=== PATIENT | male | born 1980 | race Caucasian/White ===

== ENCOUNTER 2017-07-04 01:11 | Inpatient (IN) | payer OTHER ==
[2017-07-04] MEDS ORDERED: PROPOFOL 100 ML (01:37)
[2017-07-04] MEDS: HEPARIN 1000 UNITS/ML 10 ML INJ IV ×2 (01:53→13:29)
[2017-07-04] MEDS ORDERED: HEPARIN 25000 UNITS/250 ML 250 ML IV (01:53)
[2017-07-04 01:55] LABS: ADD MAN DIFF? NO
[2017-07-04 01:56] LABS: ABNORMAL IP MESSAGE 1; BASOPHIL # 0.1 10^3/ul (0.0-0.1); BASOPHILS % 0.7 % (0.0-2.0); EOSINOPHILS # 0.4 10^3/ul (0.0-0.5); EOSINOPHILS % 4.8 % (0.0-7.0); HEMATOCRIT 39.6 % (42.0-52.0); LYMPHOCYTES # 2.7 10^3/ul (0.8-2.9); LYMPHOCYTES % 31.7 % (15.0-51.0); MEAN CORPUSCULAR HEMOGLOBIN 32.4 pg (29.0-33.0); MEAN CORPUSCULAR HGB CONC 27.8 g/dl (32.0-37.0); MEAN CORPUSCULAR VOLUME 116.5 fl (82.0-101.0); MEAN PLATELET VOLUME 10.5 fl (7.4-10.4); MONOCYTE # 1.1 10^3/ul (0.3-0.9); MONOCYTES % 12.8 % (0.0-11.0); NEUTROPHIL # 4.3 10^3/ul (1.6-7.5); NEUTROPHILS % 49.8 % (39.0-77.0); PLATELET COUNT 172 10^3/UL (140-415); POSITIVE DIFF @See below; RED CELL DISTRIBUTION WIDTH 14.4 % (11.5-14.5)
[2017-07-04 01:56] LABS: WHITE BLOOD COUNT 8.6 10^3/ul (4.8-10.8)
[2017-07-04] MEDS: PROPOFOL 100 ML IV ×4 (02:00→18:57)
[2017-07-04 02:15] LABS: AADO2 Arterial 328.4 mmHg (7.0-24.0); Arterial Base Excess -10.9 mmol/L (-3.0-3); Arterial HCO3 20.4 mmol/L (22.0-26.0); Arterial pCO2 70.9 mmhg (35-45); INR 0.96; MODE VENT - AC; PROTIME 12.8 Sec (12.2-14.2); Site Right Brachial
[2017-07-04 02:28] LABS: ALANINE AMINOTRANSFERASE 15 IU/L (13-69); ALBUMIN 4.2 g/dl (3.3-4.9); ALBUMIN/GLOBULIN RATIO 1.02; ALKALINE PHOSPHATASE 108 IU/L (42-121); ANION GAP 28 (8-16); ASPARTATE AMINO TRANSFERASE 24 IU/L (15-46); BILIRUBIN,INDIRECT 0.1 mg/dl (0-1.1); BILIRUBIN,TOTAL 0.1 mg/dl (0.2-1.3); BLOOD UREA NITROGEN 42 mg/dl (7-20); CALCIUM 8.9 mg/dl (8.4-10.2); CARBON DIOXIDE 22 mmol/L (21-31); CHLORIDE 107 mmol/L (97-110); CREATININE 9.32 mg/dl (0.61-1.24); GLUCOSE 100 mg/dl (70-220); LIPASE 526 U/L (23-300); SODIUM 152 mmol/L (135-144); TOTAL PROTEIN 8.3 g/dl (6.1-8.1)
[2017-07-04 02:50] LABS: TROPONIN-I 0.118 ng/ml (0.00-0.12)
[2017-07-04 02:53] LABS: ADD UMIC YES; UR ASCORBIC ACID NEGATIVE (NEGATIVE); UR BACTERIA FEW /HPF (NONE SEEN); UR BILIRUBIN (Dip) NEGATIVE (NEGATIVE); UR BLOOD (Dip) NEGATIVE (NEGATIVE); UR CLARITY SLIGHTLY CLOUDY (CLEAR); UR COLOR YELLOW (YELLOW); UR GLUCOSE (Dip) 1+ mg/dL (NEGATIVE); UR KETONES (Dip) NEGATIVE (NEGATIVE); UR LEUKOCYTE ESTERASE (Dip) 1+ Leu/ul (NEGATIVE); UR NITRITE (Dip) NEGATIVE (NEGATIVE); UR RBC 4 /HPF (0-5); UR SPECIFIC GRAVITY (Dip) 1.008 (1.003-1.030); UR SQUAMOUS EPITHELIAL CELL FEW /HPF (FEW); UR TOTAL PROTEIN (Dip) 2+ mg/dl (NEGATIVE); UR UROBILINOGEN (Dip) NEGATIVE (NEGATIVE); UR WBC 33 /HPF (0-5)
[2017-07-04] MEDS: SODIUM CHLORIDE 0.9% 500 ML BAG IV* (03:23)
[2017-07-04] MEDS: ASPIRIN 300 MG SUPP PR (03:25)
[2017-07-04] MEDS: FUROSEMIDE 20 MG INJ IV (03:52)
[2017-07-04] MEDS: FENTAnyl 50 MCG/ML VIAL IV (04:06)
[2017-07-04] MEDS: VECURONIUM 10 MG VIAL IV (04:09)
[2017-07-04] MEDS: VECURONIUM 100 MG in DEXTROSE 5% 100 ML IV ×3 (04:11→14:51)
[2017-07-04] MEDS: FENTAnyl (DRIP) 1000 mcg/100mL 100 ML IV ×2 (04:11→10:02)
[2017-07-04] MEDS: PANTOPRAZOLE 40 MG INJ IV (06:00)
[2017-07-04] MEDS ORDERED: INSULIN HUMAN REGULAR 100 UNIT in SOD CHLORIDE 0.9% 99 ML IV (06:00)
[2017-07-04] MEDS ORDERED: DEXTROSE 50% 50 ML SYRINGE IV ×2 (06:00)
[2017-07-04] MEDS ORDERED: NORepinephrine 8MG/250 ML (PMX 250 ML IV (06:00)
[2017-07-04] MEDS ORDERED: PROPOFOL 100 ML IV (06:00)
[2017-07-04] MEDS: HEPARIN 25000 UNITS/D5W 250 ML IV (06:00)
[2017-07-04] MEDS ORDERED: IPRATROPIUM (HFA) 12.9 GM INHALER INH (06:00)
[2017-07-04] MEDS ORDERED: ALBUTEROL HFA 8 GM INHALER INH (06:00)
[2017-07-04] MEDS ORDERED: ACETAMINOPHEN 650 MG SUPP PR (06:00)
[2017-07-04 06:13] LABS: LACTIC ACID 0.6 mmol/L (0.5-2.0)
[2017-07-04 06:14] LABS: MAGNESIUM 2.1 mg/dl (1.7-2.5)
[2017-07-04 06:14] LABS: PHOSPHORUS 8.1 mg/dl (2.5-4.9)
[2017-07-04 06:51] LABS: AMPHETAMINE/METHAMPHETAMINE Negative (NEGATIVE); BARBITURATES Negative (NEGATIVE); BENZODIAZEPINES Negative (NEGATIVE); CANNABINOIDS Negative (NEGATIVE); COCAINE Negative (NEGATIVE); OPIATES Negative (NEGATIVE)
[2017-07-04] MEDS ORDERED: VECURONIUM 10 MG VIAL (07:00)
[2017-07-04] MEDS: ACCU-CHEK XX ×9 (07:00→21:00)
[2017-07-04] MEDS ORDERED: HEPARIN 1000 UNITS/ML 10 ML INJ IV (07:00)
[2017-07-04 07:09] LABS: TROPONIN-I 0.618 ng/ml (0.00-0.12)
[2017-07-04 07:22] LABS: ETHANOL < 10.0 mg/dl
[2017-07-04 07:41] LABS: CREATINE KINASE 227 IU/L (23-200)
[2017-07-04 07:51] LABS: CK INDEX 1.9
[2017-07-04 07:52] LABS: CK-MB 4.41 ng/ml (0.0-2.4); TROPONIN-I 0.836 ng/ml (0.00-0.12)
[2017-07-04 08:35] LABS: SALICYLATE < 1.0 mg/dl (5.0-30.0)
[2017-07-04] MEDS: OCULAR LUBRICANT 3.5 GM OPH OINT BOTH EYES ×3 (09:00→17:36)
[2017-07-04] MEDS ORDERED: HEPARIN 5,000 UNIT/0.5 ML VIAL SC (09:00)
[2017-07-04] MEDS: ARTIFICIAL TEARS 15 ML OPH BOTH EYES ×3 (09:00→17:37)
[2017-07-04] MEDS: NITROGLYCERIN 50 MG/D5W (PMX) 250 ML IV ×3 (09:43→18:19)
[2017-07-04 10:20] LABS: AADO2 Arterial 604.4 mmHg (7.0-24.0); Arterial Base Excess -2.7 mmol/L (-3.0-3); Arterial Blood Gas Oxygen Sat 94.9 mmHG (95.0-98.0); Arterial COHb 1.2 % (0.0-3.0); Arterial Fraction of Oxyhgb 93.5 % (93.0-99.0); Arterial HCO3 25.8 mmol/L (22.0-26.0); Arterial MetHb 0.3 % (0.0-1.5); Arterial Total Hemglobin 15.7 g/dl (12.0-18.0); Arterial pCO2 50.3 mmhg (35-45); MODE VENT - AC; Site Right Brachial; Temperature 32.8 C
[2017-07-04 10:39] LABS: ADD MAN DIFF? NO
[2017-07-04 10:40] LABS: WHITE BLOOD COUNT 11.2 10^3/ul (4.8-10.8)
[2017-07-04 10:40] LABS: ABNORMAL IP MESSAGE 1; BASOPHILS % 0.1 % (0.0-2.0); EOSINOPHILS % 0.1 % (0.0-7.0); HEMATOCRIT 31.3 % (42.0-52.0); HEMOGLOBIN 9.9 g/dl (14.0-18.0); LYMPHOCYTES # 0.4 10^3/ul (0.8-2.9); LYMPHOCYTES % 3.2 % (15.0-51.0); MEAN CORPUSCULAR HEMOGLOBIN 31.5 pg (29.0-33.0); MEAN CORPUSCULAR HGB CONC 31.6 g/dl (32.0-37.0); MEAN CORPUSCULAR VOLUME 99.7 fl (82.0-101.0); MEAN PLATELET VOLUME 10.2 fl (7.4-10.4); MONOCYTE # 0.5 10^3/ul (0.3-0.9); MONOCYTES % 4.3 % (0.0-11.0); NEUTROPHIL # 10.3 10^3/ul (1.6-7.5); NEUTROPHILS % 91.9 % (39.0-77.0); PLATELET COUNT 166 10^3/UL (140-415); POSITIVE DIFF @See below; RED BLOOD COUNT 3.14 10^6/ul (4.70-6.10); RED CELL DISTRIBUTION WIDTH 14.4 % (11.5-14.5)
[2017-07-04 10:47] LABS: INR 1.03; PROTIME 13.5 Sec (12.2-14.2); PT RATIO 1.1
[2017-07-04 10:48] LABS: PARTIAL THROMBOPLASTIN TIME 39.5 Sec (25.0-35.0)
[2017-07-04 10:51] LABS: ALANINE AMINOTRANSFERASE 45 IU/L (13-69); ALBUMIN/GLOBULIN RATIO 1.29; ALKALINE PHOSPHATASE 122 IU/L (42-121); AMYLASE 177 U/L (11-123); ANION GAP 19 (8-16); ASPARTATE AMINO TRANSFERASE 59 IU/L (15-46); BILIRUBIN,INDIRECT 0.1 mg/dl (0-1.1); BILIRUBIN,TOTAL 0.1 mg/dl (0.2-1.3); BLOOD UREA NITROGEN 56 mg/dl (7-20); CALCIUM 7.6 mg/dl (8.4-10.2); CARBON DIOXIDE 27 mmol/L (21-31); CHLORIDE 104 mmol/L (97-110); CREATININE 8.71 mg/dl (0.61-1.24); GLUCOSE 129 mg/dl (70-220); LIPASE 280 U/L (23-300); PHOSPHORUS 7.8 mg/dl (2.5-4.9); POTASSIUM 5.3 mmol/L (3.5-5.1); SODIUM 145 mmol/L (135-144); TOTAL PROTEIN 7.1 g/dl (6.1-8.1)
[2017-07-04 11:00] LABS: LACTIC ACID 0.8 mmol/L (0.5-2.0)
[2017-07-04 11:03] LABS: TROPONIN-I 0.968 ng/ml (0.00-0.12)
[2017-07-04] MEDS: CEFEPIME 1GM/50 ML (PMX) 50 ML IVPB (11:40)
[2017-07-04 13:18] LABS: INR 0.99; PROTIME 13.1 Sec (12.2-14.2)
[2017-07-04 13:19] LABS: PARTIAL THROMBOPLASTIN TIME 32.7 Sec (25.0-35.0)
[2017-07-04 14:56] LABS: ADD MAN DIFF? NO
[2017-07-04 14:58] LABS: WHITE BLOOD COUNT 10.6 10^3/ul (4.8-10.8)
[2017-07-04 14:58] LABS: ABNORMAL IP MESSAGE 1; BASOPHILS % 0.1 % (0.0-2.0); HEMATOCRIT 32.8 % (42.0-52.0); HEMOGLOBIN 9.9 g/dl (14.0-18.0); LYMPHOCYTES # 0.5 10^3/ul (0.8-2.9); LYMPHOCYTES % 4.7 % (15.0-51.0); MEAN CORPUSCULAR HEMOGLOBIN 29.5 pg (29.0-33.0); MEAN CORPUSCULAR HGB CONC 30.2 g/dl (32.0-37.0); MEAN CORPUSCULAR VOLUME 97.6 fl (82.0-101.0); MEAN PLATELET VOLUME 10.5 fl (7.4-10.4); MONOCYTE # 0.5 10^3/ul (0.3-0.9); MONOCYTES % 4.6 % (0.0-11.0); NEUTROPHIL # 9.6 10^3/ul (1.6-7.5); NEUTROPHILS % 90.2 % (39.0-77.0); PLATELET COUNT 177 10^3/UL (140-415); POSITIVE DIFF @See below; RED BLOOD COUNT 3.36 10^6/ul (4.70-6.10); RED CELL DISTRIBUTION WIDTH 14.5 % (11.5-14.5)
[2017-07-04 15:13] LABS: INR 1.03; PROTIME 13.5 Sec (12.2-14.2); PT RATIO 1.1
[2017-07-04 15:14] LABS: LACTIC ACID 0.9 mmol/L (0.5-2.0)
[2017-07-04 15:17] LABS: ALANINE AMINOTRANSFERASE 45 IU/L (13-69); ALBUMIN 3.9 g/dl (3.3-4.9); ALBUMIN/GLOBULIN RATIO 1.18; ALKALINE PHOSPHATASE 125 IU/L (42-121); ANION GAP 20 (8-16); ASPARTATE AMINO TRANSFERASE 44 IU/L (15-46); BILIRUBIN,INDIRECT 0.2 mg/dl (0-1.1); BILIRUBIN,TOTAL 0.2 mg/dl (0.2-1.3); BLOOD UREA NITROGEN 58 mg/dl (7-20); CALCIUM 7.7 mg/dl (8.4-10.2); CARBON DIOXIDE 24 mmol/L (21-31); CHLORIDE 105 mmol/L (97-110); CREATININE 8.93 mg/dl (0.61-1.24); GLUCOSE 110 mg/dl (70-220); LIPASE 309 U/L (23-300); PHOSPHORUS 7.4 mg/dl (2.5-4.9); POTASSIUM 4.9 mmol/L (3.5-5.1); SODIUM 144 mmol/L (135-144); TOTAL PROTEIN 7.2 g/dl (6.1-8.1)
[2017-07-04 15:24] LABS: PARTIAL THROMBOPLASTIN TIME 93.7 Sec (25.0-35.0)
[2017-07-04 15:26] LABS: CK-MB 5.33 ng/ml (0.0-2.4)
[2017-07-04 15:31] LABS: TROPONIN-I 0.836 ng/ml (0.00-0.12)
[2017-07-04 15:44] LABS: AMYLASE 189 U/L (11-123)
[2017-07-04 16:53] LABS: AADO2 Arterial 552.1 mmHg (7.0-24.0); Allen Test ACCEPTAB; Arterial Base Excess -2.6 mmol/L (-3.0-3); Arterial Blood Gas Oxygen Sat 98.9 mmHG (95.0-98.0); Arterial COHb 0.3 % (0.0-3.0); Arterial Fraction of Oxyhgb 98.3 % (93.0-99.0); Arterial HCO3 21.5 mmol/L (22.0-26.0); Arterial MetHb 0.3 % (0.0-1.5); Arterial Total Hemglobin 11.1 g/dl (12.0-18.0); MODE VENT - AC; Site Right Radial; Temperature 32.3 C
[2017-07-04] MEDS ORDERED: FENTANYL IV (20:00)
[2017-07-04] MEDS ORDERED: DEXTROSE 5% IV (20:00)
[2017-07-04] MEDS ORDERED: hydrALAzine 20 MG INJ (20:15)
[2017-07-04 21:08] LABS: ADD MAN DIFF? NO
[2017-07-04 21:09] LABS: ABNORMAL IP MESSAGE 1; BASOPHILS % 0.1 % (0.0-2.0); HEMATOCRIT 31.7 % (42.0-52.0); HEMOGLOBIN 9.9 g/dl (14.0-18.0); LYMPHOCYTES # 0.4 10^3/ul (0.8-2.9); LYMPHOCYTES % 4.2 % (15.0-51.0); MEAN CORPUSCULAR HEMOGLOBIN 29.9 pg (29.0-33.0); MEAN CORPUSCULAR HGB CONC 31.2 g/dl (32.0-37.0); MEAN CORPUSCULAR VOLUME 95.8 fl (82.0-101.0); MEAN PLATELET VOLUME 10.5 fl (7.4-10.4); MONOCYTE # 0.6 10^3/ul (0.3-0.9); MONOCYTES % 6.3 % (0.0-11.0); NEUTROPHIL # 9.1 10^3/ul (1.6-7.5); NEUTROPHILS % 89.1 % (39.0-77.0); PLATELET COUNT 168 10^3/UL (140-415); POSITIVE DIFF @See below; RED BLOOD COUNT 3.31 10^6/ul (4.70-6.10); RED CELL DISTRIBUTION WIDTH 14.4 % (11.5-14.5)
[2017-07-04 21:09] LABS: WHITE BLOOD COUNT 10.2 10^3/ul (4.8-10.8)
[2017-07-04] MEDS: hydrALAzine 20 MG INJ IV (21:10)
[2017-07-04 21:39] LABS: LACTIC ACID 0.9 mmol/L (0.5-2.0)
[2017-07-04 21:42] LABS: INR 0.98
[2017-07-04 21:43] LABS: ALANINE AMINOTRANSFERASE 47 IU/L (13-69); ALBUMIN 3.9 g/dl (3.3-4.9); ALKALINE PHOSPHATASE 113 IU/L (42-121); AMYLASE 176 U/L (11-123); ANION GAP 20 (8-16); ASPARTATE AMINO TRANSFERASE 37 IU/L (15-46); BILIRUBIN,INDIRECT 0.2 mg/dl (0-1.1); BILIRUBIN,TOTAL 0.2 mg/dl (0.2-1.3); BLOOD UREA NITROGEN 61 mg/dl (7-20); CALCIUM 7.8 mg/dl (8.4-10.2); CARBON DIOXIDE 22 mmol/L (21-31); CHLORIDE 106 mmol/L (97-110); CREATININE 9.21 mg/dl (0.61-1.24); GLUCOSE 103 mg/dl (70-220); LIPASE 207 U/L (23-300); PARTIAL THROMBOPLASTIN TIME 33.1 Sec (25.0-35.0); PHOSPHORUS 7.7 mg/dl (2.5-4.9); POTASSIUM 4.2 mmol/L (3.5-5.1); SODIUM 144 mmol/L (135-144); TOTAL PROTEIN 6.9 g/dl (6.1-8.1)
[2017-07-04 21:55] LABS: TROPONIN-I 0.652 ng/ml (0.00-0.12)
[2017-07-04 22:42] LABS: AADO2 Arterial 331.2 mmHg (7.0-24.0); Allen Test ACCEPTAB; Arterial Base Excess -1.7 mmol/L (-3.0-3); Arterial Blood Gas Oxygen Sat 99.2 mmHG (95.0-98.0); Arterial COHb 0.3 % (0.0-3.0); Arterial Fraction of Oxyhgb 98.6 % (93.0-99.0); Arterial HCO3 22.7 mmol/L (22.0-26.0); Arterial MetHb 0.3 % (0.0-1.5); Arterial Total Hemglobin 11.3 g/dl (12.0-18.0); Arterial pCO2 30.9 mmhg (35-45); MODE VENT - AC; Site Right Radial; Temperature 32.6 C
[2017-07-04] MEDS: MEPERIDINE 25 MG INJ IV (23:14)
[2017-07-05] MEDS: PROPOFOL 100 ML IV ×5 (00:11→20:47)
[2017-07-05] MEDS: OCULAR LUBRICANT 3.5 GM OPH OINT BOTH EYES ×4 (00:12→18:01)
[2017-07-05] MEDS: ARTIFICIAL TEARS 15 ML OPH BOTH EYES ×4 (00:12→18:01)
[2017-07-05] MEDS: ACCU-CHEK XX ×6 (01:00→20:31)
[2017-07-05] MEDS: FENTAnyl 1,000 MCG in DEXTROSE 5% 80 ML IV ×2 (02:17→22:58)
[2017-07-05 03:22] LABS: ADD MAN DIFF? NO
[2017-07-05 03:24] LABS: WHITE BLOOD COUNT 8.8 10^3/ul (4.8-10.8)
[2017-07-05 03:24] LABS: ABNORMAL IP MESSAGE 1; BASOPHILS % 0.1 % (0.0-2.0); EOSINOPHILS % 0.2 % (0.0-7.0); HEMATOCRIT 29.1 % (42.0-52.0); HEMOGLOBIN 9.2 g/dl (14.0-18.0); LYMPHOCYTES # 0.6 10^3/ul (0.8-2.9); LYMPHOCYTES % 6.3 % (15.0-51.0); MEAN CORPUSCULAR HEMOGLOBIN 30.4 pg (29.0-33.0); MEAN CORPUSCULAR HGB CONC 31.6 g/dl (32.0-37.0); MEAN PLATELET VOLUME 10.5 fl (7.4-10.4); MONOCYTE # 0.6 10^3/ul (0.3-0.9); MONOCYTES % 6.7 % (0.0-11.0); NEUTROPHIL # 7.6 10^3/ul (1.6-7.5); NEUTROPHILS % 86.2 % (39.0-77.0); PLATELET COUNT 167 10^3/UL (140-415); POSITIVE DIFF @See below; RED BLOOD COUNT 3.03 10^6/ul (4.70-6.10); RED CELL DISTRIBUTION WIDTH 14.5 % (11.5-14.5)
[2017-07-05 03:38] LABS: INR 0.98
[2017-07-05 03:39] LABS: PARTIAL THROMBOPLASTIN TIME 32.7 Sec (25.0-35.0)
[2017-07-05 03:45] LABS: LACTIC ACID 1.4 mmol/L (0.5-2.0)
[2017-07-05 03:46] LABS: ALANINE AMINOTRANSFERASE 38 IU/L (13-69); ALBUMIN 3.5 g/dl (3.3-4.9); ALKALINE PHOSPHATASE 92 IU/L (42-121); AMYLASE 155 U/L (11-123); ANION GAP 17 (8-16); ASPARTATE AMINO TRANSFERASE 26 IU/L (15-46); BILIRUBIN,INDIRECT 0.1 mg/dl (0-1.1); BILIRUBIN,TOTAL 0.1 mg/dl (0.2-1.3); BLOOD UREA NITROGEN 62 mg/dl (7-20); CALCIUM 7.6 mg/dl (8.4-10.2); CARBON DIOXIDE 25 mmol/L (21-31); CHLORIDE 106 mmol/L (97-110); CREATININE 9.51 mg/dl (0.61-1.24); GLUCOSE 94 mg/dl (70-220); LIPASE 185 U/L (23-300); MAGNESIUM 1.9 mg/dl (1.7-2.5); POTASSIUM 4.3 mmol/L (3.5-5.1); SODIUM 144 mmol/L (135-144); TOTAL PROTEIN 6.4 g/dl (6.1-8.1)
[2017-07-05 03:46] LABS: PHOSPHORUS 9.4 mg/dl (2.5-4.9)
[2017-07-05] MEDS: MEPERIDINE 25 MG INJ IV (03:46)
[2017-07-05 03:59] LABS: TROPONIN-I 0.501 ng/ml (0.00-0.12)
[2017-07-05 04:56] LABS: AADO2 Arterial 173.2 mmHg (7.0-24.0); Allen Test ACCEPTAB; Arterial Base Excess -2.1 mmol/L (-3.0-3); Arterial Blood Gas Oxygen Sat 96.2 mmHG (95.0-98.0); Arterial COHb 0.3 % (0.0-3.0); Arterial Fraction of Oxyhgb 95.6 % (93.0-99.0); Arterial HCO3 23.8 mmol/L (22.0-26.0); Arterial MetHb 0.3 % (0.0-1.5); Arterial Total Hemglobin 10.4 g/dl (12.0-18.0); Arterial pCO2 38.1 mmhg (35-45); MODE VENT - AC
[2017-07-05] MEDS: PANTOPRAZOLE 40 MG INJ IV (05:48)
[2017-07-05] MEDS: ACETAMINOPHEN 650MG/20.3ML CUP PO ×3 (05:48→18:01)
[2017-07-05] MEDS: ACETAMINOPHEN 650 MG SUPP PR ×3 (05:49→18:00)
[2017-07-05] MEDS: NITROGLYCERIN 50 MG/D5W (PMX) 250 ML IV (06:37)
[2017-07-05 08:14] LABS: AADO2 Arterial 223.5 mmHg (7.0-24.0); Allen Test ACCEPTAB; Arterial Base Excess -2.3 mmol/L (-3.0-3); Arterial Blood Gas Oxygen Sat 96.3 mmHG (95.0-98.0); Arterial COHb 0.2 % (0.0-3.0); Arterial Fraction of Oxyhgb 95.8 % (93.0-99.0); Arterial HCO3 21.1 mmol/L (22.0-26.0); Arterial MetHb 0.3 % (0.0-1.5); Arterial Total Hemglobin 9.3 g/dl (12.0-18.0); Arterial pCO2 26.7 mmhg (35-45); MODE VENT - AC; Site Right Radial; Temperature 33.4 C
[2017-07-05] MEDS: CEFEPIME 1GM/50 ML (PMX) 50 ML IVPB (09:21)
[2017-07-05] MEDS: LORAZEPAM 2 MG INJ IV ×2 (09:21→12:47)
[2017-07-05 09:29] LABS: ADD MAN DIFF? NO
[2017-07-05 09:37] LABS: ABNORMAL IP MESSAGE 1; BASOPHILS % 0.1 % (0.0-2.0); EOSINOPHILS # 0.1 10^3/ul (0.0-0.5); EOSINOPHILS % 1.1 % (0.0-7.0); HEMATOCRIT 26.4 % (42.0-52.0); HEMOGLOBIN 8.6 g/dl (14.0-18.0); LYMPHOCYTES # 0.5 10^3/ul (0.8-2.9); LYMPHOCYTES % 6.3 % (15.0-51.0); MEAN CORPUSCULAR HEMOGLOBIN 31.4 pg (29.0-33.0); MEAN CORPUSCULAR HGB CONC 32.6 g/dl (32.0-37.0); MEAN CORPUSCULAR VOLUME 96.4 fl (82.0-101.0); MEAN PLATELET VOLUME 10.5 fl (7.4-10.4); MONOCYTE # 0.6 10^3/ul (0.3-0.9); NEUTROPHIL # 6.1 10^3/ul (1.6-7.5); NEUTROPHILS % 84.1 % (39.0-77.0); PLATELET COUNT 150 10^3/UL (140-415); POSITIVE DIFF @See below; RED BLOOD COUNT 2.74 10^6/ul (4.70-6.10); RED CELL DISTRIBUTION WIDTH 14.6 % (11.5-14.5)
[2017-07-05 09:37] LABS: WHITE BLOOD COUNT 7.3 10^3/ul (4.8-10.8)
[2017-07-05 09:52] LABS: LACTIC ACID 1.2 mmol/L (0.5-2.0)
[2017-07-05 09:54] LABS: ALANINE AMINOTRANSFERASE 38 IU/L (13-69); ALBUMIN 3.2 g/dl (3.3-4.9); ALBUMIN/GLOBULIN RATIO 1.14; ALKALINE PHOSPHATASE 79 IU/L (42-121); AMYLASE 148 U/L (11-123); ANION GAP 19 (8-16); ASPARTATE AMINO TRANSFERASE 23 IU/L (15-46); BILIRUBIN,INDIRECT 0.1 mg/dl (0-1.1); BILIRUBIN,TOTAL 0.1 mg/dl (0.2-1.3); BLOOD UREA NITROGEN 64 mg/dl (7-20); CALCIUM 7.3 mg/dl (8.4-10.2); CARBON DIOXIDE 22 mmol/L (21-31); CHLORIDE 107 mmol/L (97-110); CREATININE 9.14 mg/dl (0.61-1.24); GLUCOSE 77 mg/dl (70-220); LIPASE 203 U/L (23-300); MAGNESIUM 1.8 mg/dl (1.7-2.5); PHOSPHORUS 8.8 mg/dl (2.5-4.9); SODIUM 144 mmol/L (135-144)
[2017-07-05 10:06] LABS: TROPONIN-I 0.379 ng/ml (0.00-0.12)
[2017-07-05 10:10] LABS: INR 1.14; PROTIME 14.6 Sec (12.2-14.2); PT RATIO 1.1
[2017-07-05 10:12] LABS: PARTIAL THROMBOPLASTIN TIME 35.5 Sec (25.0-35.0)
[2017-07-05] MEDS ORDERED: DIVALPROEX (ER) 500 MG TAB PO (13:00)
[2017-07-05] MEDS: VALPROIC ACID LIQUID CUP 250 MG/5 ML CUP NGT ×2 (13:44→20:30)
[2017-07-05 14:09] LABS: AADO2 Arterial 198.8 mmHg (7.0-24.0); Allen Test ACCEPTAB; Arterial Base Excess -2.3 mmol/L (-3.0-3); Arterial Blood Gas Oxygen Sat 97.6 mmHG (95.0-98.0); Arterial COHb 0.1 % (0.0-3.0); Arterial HCO3 22.6 mmol/L (22.0-26.0); Arterial MetHb 0.5 % (0.0-1.5); Arterial Total Hemglobin 9.3 g/dl (12.0-18.0); MODE VENT - AC; Site Left Radial
[2017-07-05 16:19] LABS: ADD MAN DIFF? NO
[2017-07-05 16:20] LABS: WHITE BLOOD COUNT 6.6 10^3/ul (4.8-10.8)
[2017-07-05 16:20] LABS: ABNORMAL IP MESSAGE 1; BASOPHILS % 0.2 % (0.0-2.0); EOSINOPHILS # 0.2 10^3/ul (0.0-0.5); EOSINOPHILS % 2.7 % (0.0-7.0); HEMATOCRIT 25.1 % (42.0-52.0); HEMOGLOBIN 8.2 g/dl (14.0-18.0); LYMPHOCYTES # 0.5 10^3/ul (0.8-2.9); LYMPHOCYTES % 7.3 % (15.0-51.0); MEAN CORPUSCULAR HEMOGLOBIN 31.9 pg (29.0-33.0); MEAN CORPUSCULAR HGB CONC 32.7 g/dl (32.0-37.0); MEAN CORPUSCULAR VOLUME 97.7 fl (82.0-101.0); MEAN PLATELET VOLUME 10.6 fl (7.4-10.4); MONOCYTE # 0.5 10^3/ul (0.3-0.9); MONOCYTES % 7.8 % (0.0-11.0); NEUTROPHIL # 5.4 10^3/ul (1.6-7.5); NEUTROPHILS % 81.7 % (39.0-77.0); PLATELET COUNT 152 10^3/UL (140-415); POSITIVE DIFF @See below; RED BLOOD COUNT 2.57 10^6/ul (4.70-6.10); RED CELL DISTRIBUTION WIDTH 14.5 % (11.5-14.5)
[2017-07-05 16:38] LABS: INR 1.13; PROTIME 14.5 Sec (12.2-14.2); PT RATIO 1.1
[2017-07-05 16:39] LABS: PARTIAL THROMBOPLASTIN TIME 39.3 Sec (25.0-35.0)
[2017-07-05 16:42] LABS: AMYLASE 125 U/L (11-123); ANION GAP 19 (8-16); BLOOD UREA NITROGEN 63 mg/dl (7-20); CALCIUM 7.1 mg/dl (8.4-10.2); CARBON DIOXIDE 23 mmol/L (21-31); CHLORIDE 106 mmol/L (97-110); CREATININE 10.02 mg/dl (0.61-1.24); GLUCOSE 70 mg/dl (70-220); LIPASE 166 U/L (23-300); MAGNESIUM 1.8 mg/dl (1.7-2.5); PHOSPHORUS 8.9 mg/dl (2.5-4.9); SODIUM 144 mmol/L (135-144)
[2017-07-05 16:55] LABS: TROPONIN-I 0.296 ng/ml (0.00-0.12)
[2017-07-06] MEDS: OCULAR LUBRICANT 3.5 GM OPH OINT BOTH EYES ×5 (00:08→23:30)
[2017-07-06] MEDS: ARTIFICIAL TEARS 15 ML OPH BOTH EYES ×5 (00:08→23:30)
[2017-07-06] MEDS: ACETAMINOPHEN 650MG/20.3ML CUP PO ×5 (00:09→23:32)
[2017-07-06] MEDS: ACCU-CHEK XX ×6 (01:00→20:28)
[2017-07-06] MEDS: LORAZEPAM 2 MG INJ IV ×2 (01:31→01:54)
[2017-07-06] MEDS: FOSPHENYTOIN (PE) 1,000 MG in SOD CHLORIDE 0.9% 80 ML IVPB (03:01)
[2017-07-06] MEDS: PROPOFOL 100 ML IV ×2 (03:02→08:05)
[2017-07-06] MEDS: ACETAMINOPHEN 650 MG SUPP PR ×5 (05:26→23:32)
[2017-07-06 05:32] LABS: ADD MAN DIFF? NO
[2017-07-06 05:37] LABS: BASOPHILS % 0.3 % (0.0-2.0); EOSINOPHILS # 0.1 10^3/ul (0.0-0.5); EOSINOPHILS % 1.6 % (0.0-7.0); HEMATOCRIT 24.4 % (42.0-52.0); HEMOGLOBIN 7.4 g/dl (14.0-18.0); LYMPHOCYTES # 0.6 10^3/ul (0.8-2.9); LYMPHOCYTES % 7.6 % (15.0-51.0); MEAN CORPUSCULAR HEMOGLOBIN 29.8 pg (29.0-33.0); MEAN CORPUSCULAR HGB CONC 30.3 g/dl (32.0-37.0); MEAN CORPUSCULAR VOLUME 98.4 fl (82.0-101.0); MEAN PLATELET VOLUME 10.7 fl (7.4-10.4); MONOCYTE # 0.7 10^3/ul (0.3-0.9); MONOCYTES % 8.5 % (0.0-11.0); NEUTROPHIL # 6.5 10^3/ul (1.6-7.5); NEUTROPHILS % 81.6 % (39.0-77.0); PLATELET COUNT 140 10^3/UL (140-415); RED BLOOD COUNT 2.48 10^6/ul (4.70-6.10)
[2017-07-06 06:05] LABS: LACTIC ACID 0.9 mmol/L (0.5-2.0)
[2017-07-06 06:09] LABS: ALANINE AMINOTRANSFERASE 31 IU/L (13-69); ALBUMIN 3.1 g/dl (3.3-4.9); ALBUMIN/GLOBULIN RATIO 1.19; ALKALINE PHOSPHATASE 68 IU/L (42-121); ASPARTATE AMINO TRANSFERASE 10 IU/L (15-46); BLOOD UREA NITROGEN 72 mg/dl (7-20); CALCIUM 6.6 mg/dl (8.4-10.2); CARBON DIOXIDE 22 mmol/L (21-31); CHLORIDE 106 mmol/L (97-110); CREATININE 10.78 mg/dl (0.61-1.24); GLUCOSE 87 mg/dl (70-220); SODIUM 144 mmol/L (135-144); TOTAL PROTEIN 5.7 g/dl (6.1-8.1)
[2017-07-06 06:26] LABS: ANION GAP 20 (8-16); POTASSIUM 4.4 mmol/L (3.5-5.1)
[2017-07-06 07:38] LABS: MAGNESIUM 1.8 mg/dl (1.7-2.5)
[2017-07-06 07:38] LABS: PHOSPHORUS 9.5 mg/dl (2.5-4.9)
[2017-07-06 08:15] LABS: AADO2 Arterial 164.8 mmHg (7.0-24.0); Allen Test ACCEPTAB; Arterial Base Excess -6.3 mmol/L (-3.0-3); Arterial COHb 0.4 % (0.0-3.0); Arterial HCO3 17.2 mmol/L (22.0-26.0); Arterial MetHb 0.6 % (0.0-1.5); Arterial Total Hemglobin 7.8 g/dl (12.0-18.0); Arterial pCO2 26.7 mmhg (35-45); MODE VENT - AC; Site Right Radial
[2017-07-06] MEDS: FAMOTIDINE 20 MG INJ IV (09:12)
[2017-07-06] MEDS: VALPROIC ACID LIQUID CUP 250 MG/5 ML CUP NGT ×2 (09:12→20:24)
[2017-07-06] MEDS: CEFEPIME 1GM/50 ML (PMX) 50 ML IVPB (09:12)
[2017-07-06 09:26] LABS: TROPONIN-I 0.256 ng/ml (0.00-0.12)
[2017-07-06] MEDS: FOSPHENYTOIN (PE) 100 MG in SOD CHLORIDE 0.9% 50 ML IVPB ×3 (10:10→20:24)
[2017-07-06 10:21] LABS: IRON 20 ug/dl (35-150)
[2017-07-06 10:23] LABS: CHOL/HDL RATIO 7.2 RATIO; HDL CHOLESTEROL 21 mg/dl (28-63); LDL CHOLESTEROL,CALCULATED 98 mg/dl; TRIGLYCERIDES 163 mg/dl (0-149)
[2017-07-06 10:23] LABS: CHOLESTEROL 152 mg/dl (100-200)
[2017-07-06] MEDS: MIDAZOLAM (DRIP) 50 mg/50 mL 50 ML IV ×2 (10:24→17:32)
[2017-07-06 10:30] LABS: HEMOGLOBIN A1C 4.5 % (0-5.9)
[2017-07-06 10:30] LABS: % IRON SATURATION 10 % SAT (22-52); TOTAL IRON BINDING CAPACITY 210 ug/dl (241-421)
[2017-07-06] MEDS: ALBUMIN HUMAN 25% 100 ML IV (12:03)
[2017-07-07] MEDS: ACCU-CHEK XX ×6 (01:04→21:00)
[2017-07-07] MEDS: FOSPHENYTOIN (PE) 100 MG in SOD CHLORIDE 0.9% 50 ML IVPB ×4 (03:20→20:32)
[2017-07-07] MEDS: ACETAMINOPHEN 650 MG SUPP PR ×3 (06:00→17:23)
[2017-07-07 06:39] LABS: ADD MAN DIFF? NO
[2017-07-07 06:40] LABS: WHITE BLOOD COUNT 10.8 10^3/ul (4.8-10.8)
[2017-07-07 06:40] LABS: BASOPHILS % 0.2 % (0.0-2.0); EOSINOPHILS # 0.1 10^3/ul (0.0-0.5); EOSINOPHILS % 1.2 % (0.0-7.0); HEMATOCRIT 24.7 % (42.0-52.0); HEMOGLOBIN 7.8 g/dl (14.0-18.0); LYMPHOCYTES # 0.7 10^3/ul (0.8-2.9); LYMPHOCYTES % 6.1 % (15.0-51.0); MEAN CORPUSCULAR HEMOGLOBIN 31.2 pg (29.0-33.0); MEAN CORPUSCULAR HGB CONC 31.6 g/dl (32.0-37.0); MEAN CORPUSCULAR VOLUME 98.8 fl (82.0-101.0); MEAN PLATELET VOLUME 10.3 fl (7.4-10.4); MONOCYTE # 1.5 10^3/ul (0.3-0.9); MONOCYTES % 13.9 % (0.0-11.0); NEUTROPHIL # 8.4 10^3/ul (1.6-7.5); NEUTROPHILS % 77.8 % (39.0-77.0); PLATELET COUNT 134 10^3/UL (140-415); RED CELL DISTRIBUTION WIDTH 14.6 % (11.5-14.5)
[2017-07-07] MEDS: OCULAR LUBRICANT 3.5 GM OPH OINT BOTH EYES ×4 (06:40→23:13)
[2017-07-07] MEDS: ARTIFICIAL TEARS 15 ML OPH BOTH EYES ×4 (06:40→23:13)
[2017-07-07] MEDS: ACETAMINOPHEN 650MG/20.3ML CUP PO ×4 (06:42→23:10)
[2017-07-07 07:01] LABS: ANION GAP 18 (8-16); BLOOD UREA NITROGEN 52 mg/dl (7-20); CALCIUM 7.2 mg/dl (8.4-10.2); CARBON DIOXIDE 27 mmol/L (21-31); CHLORIDE 103 mmol/L (97-110); CREATININE 8.86 mg/dl (0.61-1.24); GLUCOSE 84 mg/dl (70-220); POTASSIUM 4.5 mmol/L (3.5-5.1); SODIUM 143 mmol/L (135-144)
[2017-07-07 07:01] LABS: PHENYTOIN (DILANTIN) 6.3 ug/ml (10.0-20.0)
[2017-07-07] MEDS: MIDAZOLAM (DRIP) 50 mg/50 mL 50 ML IV (07:14)
[2017-07-07 07:35] LABS: PHOSPHORUS 8.2 mg/dl (2.5-4.9)
[2017-07-07 07:35] LABS: MAGNESIUM 1.7 mg/dl (1.7-2.5)
[2017-07-07] MEDS: FAMOTIDINE 20 MG INJ IV (08:44)
[2017-07-07] MEDS: VALPROIC ACID LIQUID CUP 250 MG/5 ML CUP NGT ×2 (08:44→20:32)
[2017-07-07] MEDS: CEFEPIME 1GM/50 ML (PMX) 50 ML IVPB (08:45)
[2017-07-07] MEDS: FERROUS SULFATE 60 MG/ML 5ML CUP NGT ×2 (09:22→20:31)
[2017-07-07] MEDS: FENTAnyl (DRIP) 1000 mcg/100mL 100 ML IV (14:28)
[2017-07-07] MEDS: morphine 2 MG INJ IV (20:52)
[2017-07-08] MEDS: MIDAZOLAM (DRIP) 50 mg/50 mL 50 ML IV ×3 (00:37→23:31)
[2017-07-08] MEDS: ACCU-CHEK XX ×6 (01:00→21:00)
[2017-07-08] MEDS: morphine 2 MG INJ IV (01:03)
[2017-07-08] MEDS: FOSPHENYTOIN (PE) 100 MG in SOD CHLORIDE 0.9% 50 ML IVPB ×4 (03:01→20:46)
[2017-07-08] MEDS: ARTIFICIAL TEARS 15 ML OPH BOTH EYES ×4 (05:05→23:31)
[2017-07-08] MEDS: OCULAR LUBRICANT 3.5 GM OPH OINT BOTH EYES ×4 (05:05→23:31)
[2017-07-08 05:33] LABS: ADD MAN DIFF? NO
[2017-07-08 05:40] LABS: BASOPHILS % 0.3 % (0.0-2.0); EOSINOPHILS # 0.3 10^3/ul (0.0-0.5); EOSINOPHILS % 2.3 % (0.0-7.0); HEMATOCRIT 24.8 % (42.0-52.0); HEMOGLOBIN 7.8 g/dl (14.0-18.0); LYMPHOCYTES # 0.7 10^3/ul (0.8-2.9); LYMPHOCYTES % 6.4 % (15.0-51.0); MEAN CORPUSCULAR HEMOGLOBIN 31.5 pg (29.0-33.0); MEAN CORPUSCULAR HGB CONC 31.5 g/dl (32.0-37.0); MEAN PLATELET VOLUME 10.9 fl (7.4-10.4); MONOCYTE # 1.2 10^3/ul (0.3-0.9); MONOCYTES % 11.2 % (0.0-11.0); NEUTROPHIL # 8.5 10^3/ul (1.6-7.5); NEUTROPHILS % 79.3 % (39.0-77.0); PLATELET COUNT 154 10^3/UL (140-415); RED BLOOD COUNT 2.48 10^6/ul (4.70-6.10); RED CELL DISTRIBUTION WIDTH 14.3 % (11.5-14.5)
[2017-07-08 05:40] LABS: WHITE BLOOD COUNT 10.8 10^3/ul (4.8-10.8)
[2017-07-08 06:14] LABS: ANION GAP 23 (8-16); BLOOD UREA NITROGEN 67 mg/dl (7-20); CALCIUM 6.8 mg/dl (8.4-10.2); CARBON DIOXIDE 23 mmol/L (21-31); CHLORIDE 102 mmol/L (97-110); CREATININE 9.88 mg/dl (0.61-1.24); GLUCOSE 89 mg/dl (70-220); SODIUM 143 mmol/L (135-144)
[2017-07-08 06:16] LABS: PHOSPHORUS 9.8 mg/dl (2.5-4.9)
[2017-07-08 06:16] LABS: MAGNESIUM 1.8 mg/dl (1.7-2.5)
[2017-07-08 07:45] LABS: AADO2 Arterial 110.8 mmHg (7.0-24.0); Allen Test ACCEPTAB; Arterial Base Excess -2.3 mmol/L (-3.0-3); Arterial Blood Gas Oxygen Sat 86.6 mmHG (95.0-98.0); Arterial COHb 0.3 % (0.0-3.0); Arterial Fraction of Oxyhgb 86.2 % (93.0-99.0); Arterial HCO3 22.6 mmol/L (22.0-26.0); Arterial MetHb 0.2 % (0.0-1.5); Arterial Total Hemglobin 9.7 g/dl (12.0-18.0); Arterial pCO2 39.5 mmhg (35-45); MODE VENT - AC; Site Right Radial
[2017-07-08] MEDS: FAMOTIDINE 20 MG INJ IV (08:25)
[2017-07-08] MEDS: FERROUS SULFATE 60 MG/ML 5ML CUP NGT ×2 (08:25→20:46)
[2017-07-08] MEDS: VALPROIC ACID LIQUID CUP 250 MG/5 ML CUP NGT ×2 (08:25→20:46)
[2017-07-08] MEDS: CEFEPIME 1GM/50 ML (PMX) 50 ML IVPB (08:52)
[2017-07-08] MEDS: FENTAnyl (DRIP) 1000 mcg/100mL 100 ML IV (15:39)
[2017-07-08] MEDS: ACETAMINOPHEN 650MG/20.3ML CUP PO (20:46)
[2017-07-09] MEDS: ACCU-CHEK XX ×6 (00:24→20:49)
[2017-07-09] MEDS: morphine 2 MG INJ IV ×2 (01:14→16:20)
[2017-07-09] MEDS: FOSPHENYTOIN (PE) 100 MG in SOD CHLORIDE 0.9% 50 ML IVPB ×4 (02:36→20:42)
[2017-07-09] MEDS: MIDAZOLAM (DRIP) 50 mg/50 mL 50 ML IV ×2 (04:58→20:43)
[2017-07-09 04:59] LABS: ADD MAN DIFF? NO
[2017-07-09] MEDS: OCULAR LUBRICANT 3.5 GM OPH OINT BOTH EYES ×3 (05:00→18:11)
[2017-07-09] MEDS: ARTIFICIAL TEARS 15 ML OPH BOTH EYES ×3 (05:00→18:10)
[2017-07-09] MEDS: LANSOPRAZOLE 30 MG CAP NGT (05:08)
[2017-07-09 05:11] LABS: WHITE BLOOD COUNT 7.5 10^3/ul (4.8-10.8)
[2017-07-09 05:11] LABS: ABNORMAL IP MESSAGE 1; BASOPHILS % 0.1 % (0.0-2.0); EOSINOPHILS # 0.4 10^3/ul (0.0-0.5); EOSINOPHILS % 5.2 % (0.0-7.0); HEMATOCRIT 25.4 % (42.0-52.0); HEMOGLOBIN 7.6 g/dl (14.0-18.0); LYMPHOCYTES # 0.6 10^3/ul (0.8-2.9); LYMPHOCYTES % 7.3 % (15.0-51.0); MEAN CORPUSCULAR HEMOGLOBIN 29.9 pg (29.0-33.0); MEAN CORPUSCULAR HGB CONC 29.9 g/dl (32.0-37.0); MONOCYTES % 13.8 % (0.0-11.0); NEUTROPHIL # 5.5 10^3/ul (1.6-7.5); NEUTROPHILS % 73.1 % (39.0-77.0); PLATELET COUNT 153 10^3/UL (140-415); POSITIVE DIFF @See below; RED BLOOD COUNT 2.54 10^6/ul (4.70-6.10)
[2017-07-09 05:52] LABS: ANION GAP 19 (8-16); BLOOD UREA NITROGEN 55 mg/dl (7-20); CALCIUM 7.2 mg/dl (8.4-10.2); CARBON DIOXIDE 24 mmol/L (21-31); CHLORIDE 104 mmol/L (97-110); CREATININE 8.89 mg/dl (0.61-1.24); GLUCOSE 88 mg/dl (70-220); POTASSIUM 4.4 mmol/L (3.5-5.1); SODIUM 143 mmol/L (135-144)
[2017-07-09 06:00] LABS: PHOSPHORUS 8.4 mg/dl (2.5-4.9)
[2017-07-09 06:00] LABS: MAGNESIUM 2.1 mg/dl (1.7-2.5)
[2017-07-09] MEDS: FERROUS SULFATE 60 MG/ML 5ML CUP NGT ×2 (08:20→20:42)
[2017-07-09] MEDS: CEFEPIME 1GM/50 ML (PMX) 50 ML IVPB (08:21)
[2017-07-09] MEDS: VALPROIC ACID LIQUID CUP 250 MG/5 ML CUP NGT ×2 (08:21→20:43)
[2017-07-09] MEDS: FENTAnyl (DRIP) 1000 mcg/100mL 100 ML IV (16:00)
[2017-07-09] MEDS: LORAZEPAM 2 MG INJ IV (16:10)
[2017-07-10] MEDS: ARTIFICIAL TEARS 15 ML OPH BOTH EYES ×4 (00:21→18:09)
[2017-07-10] MEDS: OCULAR LUBRICANT 3.5 GM OPH OINT BOTH EYES ×4 (00:21→18:09)
[2017-07-10] MEDS: ACCU-CHEK XX ×6 (01:00→21:00)
[2017-07-10] MEDS: FOSPHENYTOIN (PE) 100 MG in SOD CHLORIDE 0.9% 50 ML IVPB ×4 (04:37→21:02)
[2017-07-10] MEDS: LANSOPRAZOLE 30 MG CAP NGT (05:15)
[2017-07-10 05:18] LABS: ADD MAN DIFF? NO
[2017-07-10 05:24] LABS: ABNORMAL IP MESSAGE 1; BASOPHILS % 0.3 % (0.0-2.0); EOSINOPHILS # 0.6 10^3/ul (0.0-0.5); EOSINOPHILS % 9.2 % (0.0-7.0); HEMOGLOBIN 7.8 g/dl (14.0-18.0); LYMPHOCYTES # 0.4 10^3/ul (0.8-2.9); LYMPHOCYTES % 5.6 % (15.0-51.0); MEAN CORPUSCULAR HEMOGLOBIN 29.7 pg (29.0-33.0); MEAN CORPUSCULAR VOLUME 98.9 fl (82.0-101.0); MEAN PLATELET VOLUME 10.4 fl (7.4-10.4); MONOCYTE # 0.9 10^3/ul (0.3-0.9); NEUTROPHIL # 4.4 10^3/ul (1.6-7.5); NEUTROPHILS % 69.4 % (39.0-77.0); PLATELET COUNT 167 10^3/UL (140-415); POSITIVE DIFF @See below; RED BLOOD COUNT 2.63 10^6/ul (4.70-6.10); RED CELL DISTRIBUTION WIDTH 13.6 % (11.5-14.5)
[2017-07-10 05:24] LABS: WHITE BLOOD COUNT 6.3 10^3/ul (4.8-10.8)
[2017-07-10 05:44] LABS: ANION GAP 21 (8-16); BLOOD UREA NITROGEN 72 mg/dl (7-20); CALCIUM 8.1 mg/dl (8.4-10.2); CARBON DIOXIDE 23 mmol/L (21-31); CHLORIDE 105 mmol/L (97-110); CREATININE 10.64 mg/dl (0.61-1.24); GLUCOSE 87 mg/dl (70-220); POTASSIUM 4.8 mmol/L (3.5-5.1); SODIUM 144 mmol/L (135-144)
[2017-07-10 05:45] LABS: MAGNESIUM 2.2 mg/dl (1.7-2.5)
[2017-07-10 05:45] LABS: PHOSPHORUS 8.9 mg/dl (2.5-4.9)
[2017-07-10] MEDS: FENTAnyl (DRIP) 1000 mcg/100mL 100 ML IV ×2 (06:52→16:38)
[2017-07-10] MEDS: MIDAZOLAM (DRIP) 50 mg/50 mL 50 ML IV ×2 (08:23→16:38)
[2017-07-10] MEDS: ASPIRIN (EC) 81 MG TAB PO (09:00)
[2017-07-10] MEDS: FERROUS SULFATE 60 MG/ML 5ML CUP NGT ×2 (09:45→21:02)
[2017-07-10] MEDS: VALPROIC ACID LIQUID CUP 250 MG/5 ML CUP NGT ×2 (09:45→21:01)
[2017-07-10] MEDS: CEFEPIME 1GM/50 ML (PMX) 50 ML IVPB (09:46)
[2017-07-10 10:26] LABS: AADO2 Arterial 93.3 mmHg (7.0-24.0); Allen Test ACCEPTAB; Arterial Base Excess 0.6 mmol/L (-3.0-3); Arterial Blood Gas Oxygen Sat 92.6 mmHG (95.0-98.0); Arterial COHb 0.2 % (0.0-3.0); Arterial Fraction of Oxyhgb 92.3 % (93.0-99.0); Arterial HCO3 25.9 mmol/L (22.0-26.0); Arterial MetHb 0.1 % (0.0-1.5); Arterial pCO2 44.1 mmhg (35-45); MODE VENT - AC; Site Right Radial
[2017-07-11] MEDS: ARTIFICIAL TEARS 15 ML OPH BOTH EYES ×5 (00:52→23:34)
[2017-07-11] MEDS: OCULAR LUBRICANT 3.5 GM OPH OINT BOTH EYES ×5 (00:52→23:34)
[2017-07-11] MEDS: ACCU-CHEK XX ×6 (00:56→21:00)
[2017-07-11] MEDS: MIDAZOLAM (DRIP) 50 mg/50 mL 50 ML IV (03:13)
[2017-07-11] MEDS: FENTAnyl (DRIP) 1000 mcg/100mL 100 ML IV ×3 (03:13→20:07)
[2017-07-11] MEDS: FOSPHENYTOIN (PE) 100 MG in SOD CHLORIDE 0.9% 50 ML IVPB ×4 (03:14→21:30)
[2017-07-11 04:27] LABS: ADD UMIC YES; UR ASCORBIC ACID NEGATIVE (NEGATIVE); UR BILIRUBIN (Dip) NEGATIVE (NEGATIVE); UR BLOOD (Dip) NEGATIVE (NEGATIVE); UR CLARITY CLEAR (CLEAR); UR COLOR YELLOW (YELLOW); UR GLUCOSE (Dip) 1+ mg/dL (NEGATIVE); UR KETONES (Dip) NEGATIVE (NEGATIVE); UR LEUKOCYTE ESTERASE (Dip) NEGATIVE Leu/ul (NEGATIVE); UR NITRITE (Dip) NEGATIVE (NEGATIVE); UR RBC 2 /HPF (0-5); UR SPECIFIC GRAVITY (Dip) 1.012 (1.003-1.030); UR TOTAL PROTEIN (Dip) 3+ mg/dl (NEGATIVE); UR UROBILINOGEN (Dip) NEGATIVE (NEGATIVE); UR WBC 12 /HPF (0-5)
[2017-07-11 05:06] LABS: ADD MAN DIFF? NO
[2017-07-11 05:10] LABS: BASOPHILS % 0.4 % (0.0-2.0); EOSINOPHILS # 0.5 10^3/ul (0.0-0.5); EOSINOPHILS % 9.5 % (0.0-7.0); HEMATOCRIT 27.2 % (42.0-52.0); HEMOGLOBIN 8.3 g/dl (14.0-18.0); LYMPHOCYTES # 0.7 10^3/ul (0.8-2.9); LYMPHOCYTES % 11.6 % (15.0-51.0); MEAN CORPUSCULAR HEMOGLOBIN 30.5 pg (29.0-33.0); MEAN CORPUSCULAR HGB CONC 30.5 g/dl (32.0-37.0); MEAN PLATELET VOLUME 10.8 fl (7.4-10.4); MONOCYTES % 18.2 % (0.0-11.0); NEUTROPHIL # 3.4 10^3/ul (1.6-7.5); NEUTROPHILS % 59.8 % (39.0-77.0); PLATELET COUNT 145 10^3/UL (140-415); RED BLOOD COUNT 2.72 10^6/ul (4.70-6.10); RED CELL DISTRIBUTION WIDTH 13.2 % (11.5-14.5)
[2017-07-11 05:10] LABS: WHITE BLOOD COUNT 5.7 10^3/ul (4.8-10.8)
[2017-07-11] MEDS: LANSOPRAZOLE 30 MG CAP NGT (05:11)
[2017-07-11 05:28] LABS: LACTIC ACID 0.6 mmol/L (0.5-2.0)
[2017-07-11 05:29] LABS: ANION GAP 18 (8-16); BLOOD UREA NITROGEN 65 mg/dl (7-20); CALCIUM 8.1 mg/dl (8.4-10.2); CARBON DIOXIDE 26 mmol/L (21-31); CHLORIDE 105 mmol/L (97-110); CREATININE 9.47 mg/dl (0.61-1.24); GLUCOSE 85 mg/dl (70-220); SODIUM 144 mmol/L (135-144)
[2017-07-11 06:26] LABS: MAGNESIUM 2.2 mg/dl (1.7-2.5)
[2017-07-11 06:26] LABS: PHOSPHORUS 7.4 mg/dl (2.5-4.9)
[2017-07-11 09:11] LABS: AADO2 Arterial 179.3 mmHg (7.0-24.0); Allen Test ACCEPTAB; Arterial Base Excess -2.7 mmol/L (-3.0-3); Arterial COHb 0.3 % (0.0-3.0); Arterial Fraction of Oxyhgb 97.4 % (93.0-99.0); Arterial HCO3 23.3 mmol/L (22.0-26.0); Arterial MetHb 0.3 % (0.0-1.5); Arterial Total Hemglobin 9.3 g/dl (12.0-18.0); Arterial pCO2 45.9 mmhg (35-45); MODE VENT - AC; Site Right Radial
[2017-07-11] MEDS: VALPROIC ACID LIQUID CUP 250 MG/5 ML CUP NGT ×2 (09:26→21:30)
[2017-07-11] MEDS: ASPIRIN 81 MG TAB NGT (09:26)
[2017-07-11] MEDS: FERROUS SULFATE 60 MG/ML 5ML CUP NGT ×2 (09:28→21:30)
[2017-07-11] MEDS: CEFEPIME 1GM/50 ML (PMX) 50 ML IVPB (09:34)
[2017-07-11] MEDS: PROPOFOL 100 ML IV ×4 (11:25→23:35)
[2017-07-11] MEDS: ALTEPLASE (CATHFLO) 2 MG INJ CATHETER (15:48)
[2017-07-11] MEDS: ATORVASTATIN 40 MG TAB PO (21:30)
[2017-07-12] MEDS: ACCU-CHEK XX ×3 (01:00→08:50)
[2017-07-12] MEDS: FOSPHENYTOIN (PE) 100 MG in SOD CHLORIDE 0.9% 50 ML IVPB ×4 (04:20→21:00)
[2017-07-12] MEDS: PROPOFOL 100 ML IV ×4 (04:21→16:30)
[2017-07-12 05:05] LABS: ADD MAN DIFF? NO
[2017-07-12] MEDS: ARTIFICIAL TEARS 15 ML OPH BOTH EYES ×3 (05:05→18:00)
[2017-07-12] MEDS: OCULAR LUBRICANT 3.5 GM OPH OINT BOTH EYES ×3 (05:06→18:00)
[2017-07-12 05:09] LABS: AADO2 Arterial 134.8 mmHg (7.0-24.0); Allen Test ACCEPTAB; Arterial Base Excess -2.9 mmol/L (-3.0-3); Arterial Blood Gas Oxygen Sat 96.4 mmHG (95.0-98.0); Arterial COHb 0.3 % (0.0-3.0); Arterial Fraction of Oxyhgb 95.8 % (93.0-99.0); Arterial HCO3 23.3 mmol/L (22.0-26.0); Arterial MetHb 0.3 % (0.0-1.5); Arterial Total Hemglobin 9.2 g/dl (12.0-18.0); Arterial pCO2 47.5 mmhg (35-45); MODE VENT - AC; Site Right Radial
[2017-07-12 05:13] LABS: WHITE BLOOD COUNT 5.1 10^3/ul (4.8-10.8)
[2017-07-12 05:13] LABS: BASOPHILS % 0.2 % (0.0-2.0); EOSINOPHILS # 0.5 10^3/ul (0.0-0.5); EOSINOPHILS % 10.2 % (0.0-7.0); HEMOGLOBIN 7.4 g/dl (14.0-18.0); LYMPHOCYTES # 0.6 10^3/ul (0.8-2.9); LYMPHOCYTES % 12.3 % (15.0-51.0); MEAN CORPUSCULAR HEMOGLOBIN 30.6 pg (29.0-33.0); MEAN CORPUSCULAR HGB CONC 30.8 g/dl (32.0-37.0); MEAN CORPUSCULAR VOLUME 99.2 fl (82.0-101.0); MEAN PLATELET VOLUME 10.5 fl (7.4-10.4); MONOCYTE # 0.8 10^3/ul (0.3-0.9); MONOCYTES % 15.7 % (0.0-11.0); NEUTROPHIL # 3.1 10^3/ul (1.6-7.5); NEUTROPHILS % 60.6 % (39.0-77.0); PLATELET COUNT 139 10^3/UL (140-415); RED BLOOD COUNT 2.42 10^6/ul (4.70-6.10); RED CELL DISTRIBUTION WIDTH 13.1 % (11.5-14.5)
[2017-07-12] MEDS: LANSOPRAZOLE 30 MG CAP NGT (05:21)
[2017-07-12 05:40] LABS: PHOSPHORUS 8.6 mg/dl (2.5-4.9)
[2017-07-12 05:40] LABS: MAGNESIUM 2.5 mg/dl (1.7-2.5)
[2017-07-12 05:44] LABS: ANION GAP 17 (8-16); BLOOD UREA NITROGEN 83 mg/dl (7-20); CALCIUM 8.2 mg/dl (8.4-10.2); CARBON DIOXIDE 25 mmol/L (21-31); CHLORIDE 106 mmol/L (97-110); CREATININE 10.81 mg/dl (0.61-1.24); GLUCOSE 86 mg/dl (70-220); POTASSIUM 4.9 mmol/L (3.5-5.1); SODIUM 143 mmol/L (135-144)
[2017-07-12] MEDS ORDERED: ALBUMIN HUMAN 25% 100 ML (06:04)
[2017-07-12] MEDS: ALBUMIN HUMAN 25% 100 ML IV (07:09)
[2017-07-12] MEDS: VALPROIC ACID LIQUID CUP 250 MG/5 ML CUP NGT ×2 (08:50→21:00)
[2017-07-12] MEDS: FERROUS SULFATE 60 MG/ML 5ML CUP NGT ×2 (08:50→21:00)
[2017-07-12] MEDS: ASPIRIN 81 MG TAB NGT (08:50)
[2017-07-12] MEDS: CEFEPIME 1GM/50 ML (PMX) 50 ML IVPB (08:51)
[2017-07-12] MEDS: ATORVASTATIN 40 MG TAB PO (21:00)
[2017-07-13] MEDS: ARTIFICIAL TEARS 15 ML OPH BOTH EYES ×5 (01:41→23:50)
[2017-07-13] MEDS: PROPOFOL 100 ML IV ×6 (01:41→23:50)
[2017-07-13] MEDS: OCULAR LUBRICANT 3.5 GM OPH OINT BOTH EYES ×5 (01:41→23:50)
[2017-07-13] MEDS: FOSPHENYTOIN (PE) 100 MG in SOD CHLORIDE 0.9% 50 ML IVPB ×4 (03:00→21:01)
[2017-07-13 05:13] LABS: ADD MAN DIFF? NO
[2017-07-13 05:20] LABS: WHITE BLOOD COUNT 7.2 10^3/ul (4.8-10.8)
[2017-07-13 05:20] LABS: BASOPHILS % 0.1 % (0.0-2.0); EOSINOPHILS # 0.5 10^3/ul (0.0-0.5); EOSINOPHILS % 7.4 % (0.0-7.0); HEMATOCRIT 23.8 % (42.0-52.0); HEMOGLOBIN 7.7 g/dl (14.0-18.0); LYMPHOCYTES # 0.6 10^3/ul (0.8-2.9); MEAN CORPUSCULAR HEMOGLOBIN 31.8 pg (29.0-33.0); MEAN CORPUSCULAR HGB CONC 32.4 g/dl (32.0-37.0); MEAN CORPUSCULAR VOLUME 98.3 fl (82.0-101.0); MEAN PLATELET VOLUME 11.1 fl (7.4-10.4); MONOCYTES % 14.3 % (0.0-11.0); NEUTROPHIL # 4.8 10^3/ul (1.6-7.5); NEUTROPHILS % 67.7 % (39.0-77.0); PLATELET COUNT 139 10^3/UL (140-415); RED BLOOD COUNT 2.42 10^6/ul (4.70-6.10); RED CELL DISTRIBUTION WIDTH 13.2 % (11.5-14.5)
[2017-07-13] MEDS: LANSOPRAZOLE 30 MG CAP NGT (05:43)
[2017-07-13 05:44] LABS: ANION GAP 16 (8-16); BLOOD UREA NITROGEN 78 mg/dl (7-20); CALCIUM 8.4 mg/dl (8.4-10.2); CARBON DIOXIDE 27 mmol/L (21-31); CHLORIDE 105 mmol/L (97-110); CREATININE 10.42 mg/dl (0.61-1.24); GLUCOSE 84 mg/dl (70-220); POTASSIUM 4.8 mmol/L (3.5-5.1); SODIUM 143 mmol/L (135-144)
[2017-07-13] MEDS: FENTAnyl (DRIP) 1000 mcg/100mL 100 ML IV (05:46)
[2017-07-13] MEDS: FERROUS SULFATE 60 MG/ML 5ML CUP NGT ×2 (08:33→21:00)
[2017-07-13] MEDS: CEFEPIME 1GM/50 ML (PMX) 50 ML IVPB (08:33)
[2017-07-13] MEDS: VALPROIC ACID LIQUID CUP 250 MG/5 ML CUP NGT ×2 (08:34→20:59)
[2017-07-13] MEDS: ASPIRIN 81 MG TAB NGT (08:34)
[2017-07-13] MEDS: ATORVASTATIN 40 MG TAB PO (20:59)
[2017-07-14] MEDS: FOSPHENYTOIN (PE) 100 MG in SOD CHLORIDE 0.9% 50 ML IVPB ×4 (03:00→21:00)
[2017-07-14] MEDS: FENTAnyl (DRIP) 1000 mcg/100mL 100 ML IV (04:50)
[2017-07-14] MEDS: PROPOFOL 100 ML IV ×6 (04:50→22:31)
[2017-07-14 04:58] LABS: ADD MAN DIFF? NO
[2017-07-14 05:04] LABS: WHITE BLOOD COUNT 6.6 10^3/ul (4.8-10.8)
[2017-07-14 05:04] LABS: BASOPHILS % 0.2 % (0.0-2.0); EOSINOPHILS # 0.5 10^3/ul (0.0-0.5); EOSINOPHILS % 8.2 % (0.0-7.0); HEMATOCRIT 24.9 % (42.0-52.0); HEMOGLOBIN 7.8 g/dl (14.0-18.0); LYMPHOCYTES # 0.7 10^3/ul (0.8-2.9); MEAN CORPUSCULAR HEMOGLOBIN 30.5 pg (29.0-33.0); MEAN CORPUSCULAR HGB CONC 31.3 g/dl (32.0-37.0); MEAN CORPUSCULAR VOLUME 97.3 fl (82.0-101.0); MEAN PLATELET VOLUME 10.9 fl (7.4-10.4); MONOCYTE # 0.7 10^3/ul (0.3-0.9); MONOCYTES % 10.7 % (0.0-11.0); NEUTROPHIL # 4.5 10^3/ul (1.6-7.5); NEUTROPHILS % 68.1 % (39.0-77.0); PLATELET COUNT 164 10^3/UL (140-415); RED BLOOD COUNT 2.56 10^6/ul (4.70-6.10); RED CELL DISTRIBUTION WIDTH 13.1 % (11.5-14.5)
[2017-07-14] MEDS: ARTIFICIAL TEARS 15 ML OPH BOTH EYES ×3 (05:04→17:45)
[2017-07-14] MEDS: OCULAR LUBRICANT 3.5 GM OPH OINT BOTH EYES ×3 (05:04→17:45)
[2017-07-14] MEDS: LANSOPRAZOLE 30 MG CAP NGT (05:04)
[2017-07-14 05:42] LABS: ANION GAP 24 (8-16); BLOOD UREA NITROGEN 95 mg/dl (7-20); CALCIUM 8.5 mg/dl (8.4-10.2); CARBON DIOXIDE 22 mmol/L (21-31); CHLORIDE 103 mmol/L (97-110); CREATININE 11.34 mg/dl (0.61-1.24); GLUCOSE 105 mg/dl (70-220); POTASSIUM 4.6 mmol/L (3.5-5.1); SODIUM 144 mmol/L (135-144)
[2017-07-14] MEDS: VALPROIC ACID LIQUID CUP 250 MG/5 ML CUP NGT ×2 (09:17→21:01)
[2017-07-14] MEDS: FERROUS SULFATE 60 MG/ML 5ML CUP NGT ×2 (09:17→21:01)
[2017-07-14] MEDS: ASPIRIN 81 MG TAB NGT (09:17)
[2017-07-14] MEDS: CEFEPIME 1GM/50 ML (PMX) 50 ML IVPB (09:18)
[2017-07-14] MEDS: LEVETIRACETAM 500 MG (PMX) 100 ML IVPB (21:00)
[2017-07-14] MEDS: ATORVASTATIN 40 MG TAB PO (21:01)
[2017-07-15] MEDS: ARTIFICIAL TEARS 15 ML OPH BOTH EYES ×4 (00:07→17:48)
[2017-07-15] MEDS: OCULAR LUBRICANT 3.5 GM OPH OINT BOTH EYES ×4 (00:07→17:48)
[2017-07-15] MEDS: FOSPHENYTOIN (PE) 100 MG in SOD CHLORIDE 0.9% 50 ML IVPB ×4 (03:16→21:26)
[2017-07-15] MEDS: PROPOFOL 100 ML IV ×5 (03:22→20:37)
[2017-07-15 05:01] LABS: ADD MAN DIFF? NO
[2017-07-15 05:07] LABS: WHITE BLOOD COUNT 7.2 10^3/ul (4.8-10.8)
[2017-07-15 05:07] LABS: ABNORMAL IP MESSAGE 1; BASOPHILS % 0.1 % (0.0-2.0); EOSINOPHILS # 0.5 10^3/ul (0.0-0.5); EOSINOPHILS % 6.9 % (0.0-7.0); HEMATOCRIT 24.1 % (42.0-52.0); HEMOGLOBIN 7.8 g/dl (14.0-18.0); LYMPHOCYTES # 0.5 10^3/ul (0.8-2.9); LYMPHOCYTES % 6.9 % (15.0-51.0); MEAN CORPUSCULAR HEMOGLOBIN 31.2 pg (29.0-33.0); MEAN CORPUSCULAR HGB CONC 32.4 g/dl (32.0-37.0); MEAN CORPUSCULAR VOLUME 96.4 fl (82.0-101.0); MEAN PLATELET VOLUME 10.8 fl (7.4-10.4); MONOCYTE # 0.8 10^3/ul (0.3-0.9); MONOCYTES % 10.5 % (0.0-11.0); NEUTROPHIL # 5.3 10^3/ul (1.6-7.5); NEUTROPHILS % 73.7 % (39.0-77.0); PLATELET COUNT 164 10^3/UL (140-415); POSITIVE DIFF @See below
[2017-07-15 05:39] LABS: ANION GAP 20 (8-16); BLOOD UREA NITROGEN 79 mg/dl (7-20); CALCIUM 8.4 mg/dl (8.4-10.2); CARBON DIOXIDE 25 mmol/L (21-31); CHLORIDE 102 mmol/L (97-110); CREATININE 8.05 mg/dl (0.61-1.24); GLUCOSE 89 mg/dl (70-220); POTASSIUM 4.2 mmol/L (3.5-5.1); SODIUM 143 mmol/L (135-144)
[2017-07-15] MEDS: LANSOPRAZOLE 30 MG CAP NGT (05:40)
[2017-07-15] MEDS: ASPIRIN 81 MG TAB NGT (09:47)
[2017-07-15] MEDS: LEVETIRACETAM 500 MG (PMX) 100 ML IVPB ×2 (09:48→20:37)
[2017-07-15] MEDS: VALPROIC ACID LIQUID CUP 250 MG/5 ML CUP NGT ×2 (09:48→20:37)
[2017-07-15] MEDS: FERROUS SULFATE 60 MG/ML 5ML CUP NGT ×2 (09:48→20:36)
[2017-07-15] MEDS: CEFEPIME 1GM/50 ML (PMX) 50 ML IVPB (10:58)
[2017-07-15] MEDS: ATORVASTATIN 40 MG TAB PO (20:36)
[2017-07-16] MEDS: OCULAR LUBRICANT 3.5 GM OPH OINT BOTH EYES ×4 (00:22→17:01)
[2017-07-16] MEDS: ARTIFICIAL TEARS 15 ML OPH BOTH EYES ×4 (00:22→17:01)
[2017-07-16] MEDS: PROPOFOL 100 ML IV ×6 (00:50→22:15)
[2017-07-16] MEDS: FOSPHENYTOIN (PE) 100 MG in SOD CHLORIDE 0.9% 50 ML IVPB ×4 (04:42→20:49)
[2017-07-16] MEDS: LANSOPRAZOLE 30 MG CAP NGT (05:34)
[2017-07-16 05:58] LABS: ADD MAN DIFF? NO
[2017-07-16 06:01] LABS: WHITE BLOOD COUNT 6.7 10^3/ul (4.8-10.8)
[2017-07-16 06:01] LABS: ABNORMAL IP MESSAGE 1; BASOPHILS % 0.3 % (0.0-2.0); EOSINOPHILS # 0.5 10^3/ul (0.0-0.5); EOSINOPHILS % 7.9 % (0.0-7.0); HEMOGLOBIN 7.3 g/dl (14.0-18.0); LYMPHOCYTES # 0.5 10^3/ul (0.8-2.9); LYMPHOCYTES % 7.7 % (15.0-51.0); MEAN CORPUSCULAR HGB CONC 31.7 g/dl (32.0-37.0); MEAN CORPUSCULAR VOLUME 94.7 fl (82.0-101.0); MEAN PLATELET VOLUME 10.9 fl (7.4-10.4); MONOCYTE # 0.9 10^3/ul (0.3-0.9); MONOCYTES % 13.8 % (0.0-11.0); NEUTROPHIL # 4.6 10^3/ul (1.6-7.5); NEUTROPHILS % 68.7 % (39.0-77.0); PLATELET COUNT 141 10^3/UL (140-415); POSITIVE DIFF @See below; RED BLOOD COUNT 2.43 10^6/ul (4.70-6.10); RED CELL DISTRIBUTION WIDTH 13.1 % (11.5-14.5)
[2017-07-16 06:31] LABS: ANION GAP 21 (8-16); BLOOD UREA NITROGEN 101 mg/dl (7-20); CALCIUM 7.9 mg/dl (8.4-10.2); CARBON DIOXIDE 23 mmol/L (21-31); CHLORIDE 102 mmol/L (97-110); CREATININE 9.06 mg/dl (0.61-1.24); GLUCOSE 92 mg/dl (70-220); POTASSIUM 4.7 mmol/L (3.5-5.1); SODIUM 141 mmol/L (135-144)
[2017-07-16] MEDS: VALPROIC ACID LIQUID CUP 250 MG/5 ML CUP NGT ×2 (08:41→20:43)
[2017-07-16] MEDS: FERROUS SULFATE 60 MG/ML 5ML CUP NGT ×2 (08:41→20:43)
[2017-07-16] MEDS: ASPIRIN 81 MG TAB NGT (08:42)
[2017-07-16] MEDS: LEVETIRACETAM 500 MG (PMX) 100 ML IVPB ×2 (08:42→20:43)
[2017-07-16] MEDS: CEFEPIME 1GM/50 ML (PMX) 50 ML IVPB (08:42)
[2017-07-16] MEDS: SOD CHLORIDE 0.9% 250 ML IV* (11:51)
[2017-07-16 14:08] LABS: IMMEDIATE SPIN CROSSMATCH 1 1
[2017-07-16] MEDS: ATORVASTATIN 40 MG TAB PO (20:43)
[2017-07-17] MEDS: OCULAR LUBRICANT 3.5 GM OPH OINT BOTH EYES ×5 (00:26→23:46)
[2017-07-17] MEDS: ARTIFICIAL TEARS 15 ML OPH BOTH EYES ×5 (00:26→23:45)
[2017-07-17] MEDS: METOCLOPRAMIDE 10 MG INJ IV ×5 (01:11→23:51)
[2017-07-17] MEDS: FOSPHENYTOIN (PE) 100 MG in SOD CHLORIDE 0.9% 50 ML IVPB ×4 (03:00→21:16)
[2017-07-17] MEDS: PROPOFOL 100 ML IV ×5 (03:00→23:44)
[2017-07-17] MEDS: LANSOPRAZOLE 30 MG CAP NGT (05:27)
[2017-07-17 06:40] LABS: ADD MAN DIFF? NO
[2017-07-17 06:45] LABS: ABNORMAL IP MESSAGE 1; BASOPHILS % 0.2 % (0.0-2.0); EOSINOPHILS # 0.5 10^3/ul (0.0-0.5); EOSINOPHILS % 4.2 % (0.0-7.0); HEMATOCRIT 27.2 % (42.0-52.0); HEMOGLOBIN 8.8 g/dl (14.0-18.0); LYMPHOCYTES # 0.5 10^3/ul (0.8-2.9); LYMPHOCYTES % 4.4 % (15.0-51.0); MEAN CORPUSCULAR HEMOGLOBIN 30.2 pg (29.0-33.0); MEAN CORPUSCULAR HGB CONC 32.4 g/dl (32.0-37.0); MEAN CORPUSCULAR VOLUME 93.5 fl (82.0-101.0); MEAN PLATELET VOLUME 11.1 fl (7.4-10.4); MONOCYTE # 1.2 10^3/ul (0.3-0.9); MONOCYTES % 10.3 % (0.0-11.0); NEUTROPHIL # 9.4 10^3/ul (1.6-7.5); NEUTROPHILS % 80.1 % (39.0-77.0); PLATELET COUNT 117 10^3/UL (140-415); POSITIVE DIFF @See below; RED BLOOD COUNT 2.91 10^6/ul (4.70-6.10); RED CELL DISTRIBUTION WIDTH 13.1 % (11.5-14.5)
[2017-07-17 06:45] LABS: WHITE BLOOD COUNT 11.7 10^3/ul (4.8-10.8)
[2017-07-17 07:33] LABS: ANION GAP 21 (8-16); BLOOD UREA NITROGEN 71 mg/dl (7-20); CALCIUM 8.2 mg/dl (8.4-10.2); CARBON DIOXIDE 26 mmol/L (21-31); CHLORIDE 100 mmol/L (97-110); CREATININE 7.03 mg/dl (0.61-1.24); GLUCOSE 78 mg/dl (70-220); POTASSIUM 4.2 mmol/L (3.5-5.1); SODIUM 143 mmol/L (135-144)
[2017-07-17] MEDS: LEVETIRACETAM 500 MG (PMX) 100 ML IVPB ×2 (08:14→21:13)
[2017-07-17] MEDS: ASPIRIN 81 MG TAB NGT (08:15)
[2017-07-17] MEDS: FERROUS SULFATE 60 MG/ML 5ML CUP NGT ×2 (08:15→21:13)
[2017-07-17] MEDS: VALPROIC ACID LIQUID CUP 250 MG/5 ML CUP NGT ×2 (08:15→21:13)
[2017-07-17] MEDS: ACETAMINOPHEN 650MG/20.3ML CUP PO (12:16)
[2017-07-17] MEDS ORDERED: PENDING SANTYL ORDER FOR WOUND CARE XX (17:00)
[2017-07-17] MEDS: ATORVASTATIN 40 MG TAB PO (21:13)
[2017-07-17 21:28] LABS: OCCULT BLOOD STOOL NEGATIVE (NEGATIVE)
[2017-07-18] MEDS: FOSPHENYTOIN (PE) 100 MG in SOD CHLORIDE 0.9% 50 ML IVPB ×4 (03:15→20:52)
[2017-07-18] MEDS: PROPOFOL 100 ML IV ×3 (03:56→20:51)
[2017-07-18 04:42] LABS: ADD MAN DIFF? NO
[2017-07-18 04:44] LABS: WHITE BLOOD COUNT 8.1 10^3/ul (4.8-10.8)
[2017-07-18 04:44] LABS: ABNORMAL IP MESSAGE 1; BASOPHILS % 0.1 % (0.0-2.0); EOSINOPHILS # 0.5 10^3/ul (0.0-0.5); EOSINOPHILS % 6.1 % (0.0-7.0); HEMATOCRIT 25.7 % (42.0-52.0); HEMOGLOBIN 8.4 g/dl (14.0-18.0); LYMPHOCYTES # 0.5 10^3/ul (0.8-2.9); LYMPHOCYTES % 6.1 % (15.0-51.0); MEAN CORPUSCULAR HEMOGLOBIN 30.8 pg (29.0-33.0); MEAN CORPUSCULAR HGB CONC 32.7 g/dl (32.0-37.0); MEAN CORPUSCULAR VOLUME 94.1 fl (82.0-101.0); MEAN PLATELET VOLUME 12.1 fl (7.4-10.4); MONOCYTE # 1.2 10^3/ul (0.3-0.9); MONOCYTES % 15.4 % (0.0-11.0); NEUTROPHIL # 5.7 10^3/ul (1.6-7.5); NEUTROPHILS % 71.3 % (39.0-77.0); PLATELET COUNT 63 10^3/UL (140-415); POSITIVE DIFF @See below; RED BLOOD COUNT 2.73 10^6/ul (4.70-6.10); RED CELL DISTRIBUTION WIDTH 13.1 % (11.5-14.5)
[2017-07-18 05:09] LABS: PHOSPHORUS 9.8 mg/dl (2.5-4.9)
[2017-07-18 05:09] LABS: MAGNESIUM 2.4 mg/dl (1.7-2.5)
[2017-07-18 05:10] LABS: ANION GAP 24 (8-16); BLOOD UREA NITROGEN 101 mg/dl (7-20); CALCIUM 8.6 mg/dl (8.4-10.2); CARBON DIOXIDE 23 mmol/L (21-31); CHLORIDE 100 mmol/L (97-110); GLUCOSE 85 mg/dl (70-220); POTASSIUM 4.5 mmol/L (3.5-5.1); SODIUM 142 mmol/L (135-144)
[2017-07-18 05:26] LABS: CREATININE 8.63 mg/dl (0.61-1.24)
[2017-07-18] MEDS: LANSOPRAZOLE 30 MG CAP NGT (05:35)
[2017-07-18] MEDS: OCULAR LUBRICANT 3.5 GM OPH OINT BOTH EYES ×3 (05:35→17:46)
[2017-07-18] MEDS: METOCLOPRAMIDE 10 MG INJ IV ×3 (05:35→17:45)
[2017-07-18] MEDS: ARTIFICIAL TEARS 15 ML OPH BOTH EYES ×3 (05:35→17:46)
[2017-07-18] MEDS: FENTAnyl (DRIP) 1000 mcg/100mL 100 ML IV (05:49)
[2017-07-18] MEDS: LEVETIRACETAM 500 MG (PMX) 100 ML IVPB ×2 (10:20→20:47)
[2017-07-18] MEDS: ASPIRIN 81 MG TAB NGT (10:28)
[2017-07-18] MEDS: FERROUS SULFATE 60 MG/ML 5ML CUP NGT ×2 (10:29→20:49)
[2017-07-18] MEDS: VALPROIC ACID LIQUID CUP 250 MG/5 ML CUP NGT ×2 (10:29→20:49)
[2017-07-18] MEDS: ATORVASTATIN 40 MG TAB PO (20:48)
[2017-07-19] MEDS: OCULAR LUBRICANT 3.5 GM OPH OINT BOTH EYES ×5 (00:29→23:57)
[2017-07-19] MEDS: METOCLOPRAMIDE 10 MG INJ IV ×5 (00:29→23:55)
[2017-07-19] MEDS: ARTIFICIAL TEARS 15 ML OPH BOTH EYES ×5 (00:29→23:55)
[2017-07-19] MEDS: FOSPHENYTOIN (PE) 100 MG in SOD CHLORIDE 0.9% 50 ML IVPB ×4 (03:47→22:24)
[2017-07-19] MEDS: LANSOPRAZOLE 30 MG CAP NGT (05:54)
[2017-07-19 06:29] LABS: PHOSPHORUS 9.9 mg/dl (2.5-4.9)
[2017-07-19 06:29] LABS: MAGNESIUM 2.5 mg/dl (1.7-2.5)
[2017-07-19 06:32] LABS: ALANINE AMINOTRANSFERASE 27 IU/L (13-69); ALBUMIN 3.1 g/dl (3.3-4.9); ALBUMIN/GLOBULIN RATIO 0.77; ALKALINE PHOSPHATASE 131 IU/L (42-121); ANION GAP 26 (8-16); ASPARTATE AMINO TRANSFERASE 19 IU/L (15-46); CALCIUM 8.5 mg/dl (8.4-10.2); CARBON DIOXIDE 21 mmol/L (21-31); CHLORIDE 99 mmol/L (97-110); GLUCOSE 92 mg/dl (70-220); POTASSIUM 4.1 mmol/L (3.5-5.1); SODIUM 142 mmol/L (135-144); TOTAL PROTEIN 7.1 g/dl (6.1-8.1)
[2017-07-19 07:15] LABS: BLOOD UREA NITROGEN 123 mg/dl (7-20)
[2017-07-19 07:42] LABS: ABNORMAL IP MESSAGE 1; HEMATOCRIT 23.8 % (42.0-52.0); MEAN CORPUSCULAR HEMOGLOBIN 31.5 pg (29.0-33.0); MEAN CORPUSCULAR HGB CONC 33.2 g/dl (32.0-37.0); MEAN CORPUSCULAR VOLUME 94.8 fl (82.0-101.0); POSITIVE DIFF @See below; RED BLOOD COUNT 2.51 10^6/ul (4.70-6.10); RED CELL DISTRIBUTION WIDTH 13.2 % (11.5-14.5)
[2017-07-19 07:46] LABS: MEAN PLATELET VOLUME 13.1 fl (7.4-10.4); PLATELET COUNT 36 10^3/UL (140-415)
[2017-07-19 07:46] LABS: WHITE BLOOD COUNT 8.5 10^3/ul (4.8-10.8)
[2017-07-19 07:47] LABS: ADD MAN DIFF? YES; HEMOGLOBIN 7.9 g/dl (14.0-18.0)
[2017-07-19 09:17] LABS: ANISOCYTOSIS 1+ (0-0); BAND NEUTROPHILS #M 0.5 10^3/ul (0.0-0.6); BAND NEUTROPHILS % (M) 6 % (0-4); BASOPHIL #M 0.1 10^3/ul (0.0-0.0); BASOPHILS % (M) 2 % (0-2); EOSINOPHILS % (M) 6 % (0-7); LYMPHOCYTES #M 0.7 10^3/ul (0.8-2.9); LYMPHOCYTES % (M) 9 % (15-51); MONOCYTE #M 1.1 10^3/ul (0.3-0.9); MONOCYTES % (M) 13 % (0-11); PLATELET ESTIMATE DECREASED; POIKILOCYTOSIS 1+ (0-0); POLYCHROMASIA 3+ (0-0); SEG NEUT #M 5.5 10^3/ul (1.7-7.5); SEGMENTED NEUTROPHILS (M) % 64 % (39-77); SMUDGE%M 1 % (0-0)
[2017-07-19] MEDS: LEVETIRACETAM 500 MG (PMX) 100 ML IVPB ×2 (09:20→21:23)
[2017-07-19] MEDS: ASPIRIN 81 MG TAB NGT (09:21)
[2017-07-19] MEDS: FERROUS SULFATE 60 MG/ML 5ML CUP NGT ×2 (09:21→21:21)
[2017-07-19] MEDS: VALPROIC ACID LIQUID CUP 250 MG/5 ML CUP NGT ×2 (09:28→21:21)
[2017-07-19] MEDS: ATORVASTATIN 40 MG TAB PO (21:21)
[2017-07-19] MEDS: PROPOFOL 100 ML IV (22:28)
[2017-07-20] MEDS: FOSPHENYTOIN (PE) 100 MG in SOD CHLORIDE 0.9% 50 ML IVPB ×4 (02:30→20:43)
[2017-07-20] MEDS: PANTOPRAZOLE IV 80 MG in SOD CHLORIDE 0.9% 100 ML IVPB (05:29)
[2017-07-20] MEDS: PROPOFOL 100 ML IV ×3 (05:33→20:31)
[2017-07-20 05:40] LABS: ADD MAN DIFF? NO
[2017-07-20] MEDS: PANTOPRAZOLE IV 80 MG in SOD CHLORIDE 0.9% 100 ML IV ×2 (05:42→14:16)
[2017-07-20] MEDS: OCULAR LUBRICANT 3.5 GM OPH OINT BOTH EYES ×3 (05:43→18:25)
[2017-07-20] MEDS: ARTIFICIAL TEARS 15 ML OPH BOTH EYES ×3 (05:43→18:25)
[2017-07-20] MEDS: LANSOPRAZOLE 30 MG CAP NGT (05:50)
[2017-07-20] MEDS: METOCLOPRAMIDE 10 MG INJ IV ×3 (05:50→20:44)
[2017-07-20 06:06] LABS: ABNORMAL IP MESSAGE 1; BASOPHILS % 0.4 % (0.0-2.0); EOSINOPHILS # 0.6 10^3/ul (0.0-0.5); EOSINOPHILS % 6.8 % (0.0-7.0); HEMATOCRIT 25.8 % (42.0-52.0); HEMOGLOBIN 8.4 g/dl (14.0-18.0); LYMPHOCYTES # 0.5 10^3/ul (0.8-2.9); LYMPHOCYTES % 6.2 % (15.0-51.0); MEAN CORPUSCULAR HEMOGLOBIN 30.7 pg (29.0-33.0); MEAN CORPUSCULAR HGB CONC 32.6 g/dl (32.0-37.0); MEAN CORPUSCULAR VOLUME 94.2 fl (82.0-101.0); MONOCYTE # 1.3 10^3/ul (0.3-0.9); MONOCYTES % 15.4 % (0.0-11.0); NEUTROPHIL # 5.8 10^3/ul (1.6-7.5); NEUTROPHILS % 70.7 % (39.0-77.0); POSITIVE DIFF @See below; RED BLOOD COUNT 2.74 10^6/ul (4.70-6.10); RED CELL DISTRIBUTION WIDTH 13.2 % (11.5-14.5)
[2017-07-20 06:06] LABS: WHITE BLOOD COUNT 8.3 10^3/ul (4.8-10.8)
[2017-07-20 06:23] LABS: PLATELET COUNT 47 10^3/UL (140-415)
[2017-07-20] MEDS: OCTREOTIDE 50 MCG in SOD CHLORIDE 0.9% 50 ML IVPB (06:25)
[2017-07-20 06:28] LABS: ANION GAP 25 (8-16); BLOOD UREA NITROGEN 105 mg/dl (7-20); CALCIUM 8.6 mg/dl (8.4-10.2); CARBON DIOXIDE 23 mmol/L (21-31); CHLORIDE 104 mmol/L (97-110); GLUCOSE 101 mg/dl (70-220); POTASSIUM 3.8 mmol/L (3.5-5.1); SODIUM 148 mmol/L (135-144)
[2017-07-20 06:42] LABS: CREATININE 9.11 mg/dl (0.61-1.24)
[2017-07-20 07:36] LABS: MAGNESIUM 2.5 mg/dl (1.7-2.5)
[2017-07-20 07:36] LABS: PHOSPHORUS 7.2 mg/dl (2.5-4.9)
[2017-07-20] MEDS: ASPIRIN 81 MG TAB NGT (08:36)
[2017-07-20] MEDS: VALPROIC ACID LIQUID CUP 250 MG/5 ML CUP NGT ×2 (08:37→20:44)
[2017-07-20] MEDS: FERROUS SULFATE 60 MG/ML 5ML CUP NGT ×2 (08:37→20:44)
[2017-07-20] MEDS: LEVETIRACETAM 500 MG (PMX) 100 ML IVPB ×2 (08:40→20:49)
[2017-07-20] MEDS: FENTAnyl (DRIP) 1000 mcg/100mL 100 ML IV (08:40)
[2017-07-20 10:07] LABS: FIBRIN SPLIT PRODUCT <10 ug/ml (<10)
[2017-07-20 10:15] LABS: D-DIMER 3381.59 ng/ml (<460)
[2017-07-20] MEDS: SOD CHLORIDE 0.9% 250 ML IV* (11:30)
[2017-07-20] MEDS: BALSAM PERU/CASTOR OIL 60 GM TUBE TOP (13:23)
[2017-07-20] MEDS: OCTREOTIDE 100 MCG in SOD CHLORIDE 0.9% 50 ML IVPB ×2 (14:35→20:43)
[2017-07-20 15:14] LABS: ADD MAN DIFF? NO
[2017-07-20 15:15] LABS: BASOPHILS % 0.2 % (0.0-2.0); EOSINOPHILS % 9.8 % (0.0-7.0); HEMATOCRIT 23.7 % (42.0-52.0); HEMOGLOBIN 7.7 g/dl (14.0-18.0); LYMPHOCYTES % 7.4 % (15.0-51.0); MEAN CORPUSCULAR HEMOGLOBIN 30.8 pg (29.0-33.0); MEAN CORPUSCULAR HGB CONC 32.5 g/dl (32.0-37.0); MEAN CORPUSCULAR VOLUME 94.8 fl (82.0-101.0); MEAN PLATELET VOLUME 12.2 fl (7.4-10.4); MONOCYTES % 18.1 % (0.0-11.0); PLATELET COUNT 52 10^3/UL (140-415); RED CELL DISTRIBUTION WIDTH 13.2 % (11.5-14.5)
[2017-07-20 15:15] LABS: WHITE BLOOD COUNT 6.2 10^3/ul (4.8-10.8)
[2017-07-20 15:16] LABS: ABNORMAL IP MESSAGE 1; EOSINOPHILS # 0.6 10^3/ul (0.0-0.5); LYMPHOCYTES # 0.5 10^3/ul (0.8-2.9); MONOCYTE # 1.1 10^3/ul (0.3-0.9); POSITIVE DIFF @See below
[2017-07-20 15:33] LABS: INR 1.16; PARTIAL THROMBOPLASTIN TIME 34.9 Sec (25.0-35.0); PROTIME 14.8 Sec (12.2-14.2); PT RATIO 1.2
[2017-07-20 15:34] LABS: THROMBIN TIME 19.4 SEC (13.8-19.1)
[2017-07-20 15:36] LABS: D-DIMER 3818.01 ng/ml (<460)
[2017-07-20 16:18] LABS: PLATELET COUNT 52 10^3/UL (140-440)
[2017-07-20 16:33] LABS: FIBRIN SPLIT PRODUCT >10 and <40 ug/ml (<10)
[2017-07-20 16:53] LABS: TYPE AND SCREEN 1
[2017-07-20] MEDS ORDERED: DESMOPRESSIN 20 MCG in SOD CHLORIDE 0.9% 50 ML IVPB (17:30)
[2017-07-20] MEDS ORDERED: CEFAZOLIN 1 GM/50 ML (PMX) 50 ML IVPB (17:30)
[2017-07-20] MEDS: DESMOPRESSIN 20 MCG in SOD CHLORIDE 0.9% 50 ML IVPB (20:43)
[2017-07-20] MEDS: ATORVASTATIN 40 MG TAB PO (20:44)
[2017-07-21 00:36] LABS: ADD MAN DIFF? NO
[2017-07-21] MEDS: METOCLOPRAMIDE 10 MG INJ IV ×4 (00:36→17:35)
[2017-07-21] MEDS: OCULAR LUBRICANT 3.5 GM OPH OINT BOTH EYES ×4 (00:37→17:40)
[2017-07-21] MEDS: ARTIFICIAL TEARS 15 ML OPH BOTH EYES ×4 (00:37→17:40)
[2017-07-21 00:38] LABS: WHITE BLOOD COUNT 8.4 10^3/ul (4.8-10.8)
[2017-07-21 00:38] LABS: ABNORMAL IP MESSAGE 1; BASOPHILS % 0.1 % (0.0-2.0); EOSINOPHILS # 0.8 10^3/ul (0.0-0.5); EOSINOPHILS % 9.6 % (0.0-7.0); HEMATOCRIT 22.2 % (42.0-52.0); HEMOGLOBIN 7.2 g/dl (14.0-18.0); LYMPHOCYTES # 0.7 10^3/ul (0.8-2.9); LYMPHOCYTES % 8.3 % (15.0-51.0); MEAN CORPUSCULAR HEMOGLOBIN 30.8 pg (29.0-33.0); MEAN CORPUSCULAR HGB CONC 32.4 g/dl (32.0-37.0); MEAN CORPUSCULAR VOLUME 94.9 fl (82.0-101.0); MEAN PLATELET VOLUME 12.2 fl (7.4-10.4); MONOCYTE # 1.3 10^3/ul (0.3-0.9); NEUTROPHIL # 5.6 10^3/ul (1.6-7.5); NEUTROPHILS % 66.6 % (39.0-77.0); PLATELET COUNT 61 10^3/UL (140-415); POSITIVE DIFF @See below; RED BLOOD COUNT 2.34 10^6/ul (4.70-6.10); RED CELL DISTRIBUTION WIDTH 13.3 % (11.5-14.5)
[2017-07-21] MEDS: PANTOPRAZOLE IV 80 MG in SOD CHLORIDE 0.9% 100 ML IV ×2 (01:08→09:21)
[2017-07-21] MEDS: PROPOFOL 100 ML IV (03:41)
[2017-07-21] MEDS: FOSPHENYTOIN (PE) 100 MG in SOD CHLORIDE 0.9% 50 ML IVPB ×4 (04:26→21:51)
[2017-07-21] MEDS: OCTREOTIDE 100 MCG in SOD CHLORIDE 0.9% 50 ML IVPB ×2 (05:21→14:22)
[2017-07-21] MEDS: DESMOPRESSIN 20 MCG in SOD CHLORIDE 0.9% 50 ML IVPB ×2 (05:26→17:36)
[2017-07-21 05:35] LABS: ADD MAN DIFF? NO
[2017-07-21 05:52] LABS: ABNORMAL IP MESSAGE 1; BASOPHILS % 0.1 % (0.0-2.0); EOSINOPHILS # 0.8 10^3/ul (0.0-0.5); EOSINOPHILS % 9.5 % (0.0-7.0); HEMATOCRIT 21.9 % (42.0-52.0); LYMPHOCYTES # 0.6 10^3/ul (0.8-2.9); LYMPHOCYTES % 7.3 % (15.0-51.0); MEAN CORPUSCULAR HEMOGLOBIN 30.6 pg (29.0-33.0); MEAN CORPUSCULAR VOLUME 95.6 fl (82.0-101.0); MEAN PLATELET VOLUME 12.8 fl (7.4-10.4); MONOCYTE # 1.3 10^3/ul (0.3-0.9); MONOCYTES % 15.8 % (0.0-11.0); NEUTROPHIL # 5.3 10^3/ul (1.6-7.5); NEUTROPHILS % 66.9 % (39.0-77.0); PLATELET COUNT 59 10^3/UL (140-415); POSITIVE DIFF @See below; RED BLOOD COUNT 2.29 10^6/ul (4.70-6.10); RED CELL DISTRIBUTION WIDTH 13.2 % (11.5-14.5)
[2017-07-21 05:52] LABS: WHITE BLOOD COUNT 7.9 10^3/ul (4.8-10.8)
[2017-07-21 06:32] LABS: MAGNESIUM 2.5 mg/dl (1.7-2.5)
[2017-07-21 06:32] LABS: PHOSPHORUS 10.6 mg/dl (2.5-4.9)
[2017-07-21 06:47] LABS: ANION GAP 30 (8-16); CALCIUM 8.5 mg/dl (8.4-10.2); CARBON DIOXIDE 19 mmol/L (21-31); CHLORIDE 104 mmol/L (97-110); GLUCOSE 81 mg/dl (70-220); POTASSIUM 4.7 mmol/L (3.5-5.1); SODIUM 148 mmol/L (135-144)
[2017-07-21 07:23] LABS: CREATININE 11.99 mg/dl (0.61-1.24)
[2017-07-21 07:29] LABS: BLOOD UREA NITROGEN 135 mg/dl (7-20)
[2017-07-21] MEDS: BALSAM PERU/CASTOR OIL 60 GM TUBE TOP ×2 (09:00→11:35)
[2017-07-21] MEDS: CEFAZOLIN 1 GM/50 ML (PMX) 50 ML IVPB (09:05)
[2017-07-21] MEDS: FERROUS SULFATE 60 MG/ML 5ML CUP NGT ×2 (09:05→20:55)
[2017-07-21] MEDS: VALPROIC ACID LIQUID CUP 250 MG/5 ML CUP NGT ×2 (09:05→20:56)
[2017-07-21] MEDS: LEVETIRACETAM 500 MG (PMX) 100 ML IVPB ×2 (09:21→20:56)
[2017-07-21] MEDS ORDERED: SOD CHLORIDE 0.9% 250 ML IV* (10:45)
[2017-07-21] MEDS: SOD CHLORIDE 0.9% 250 ML IV* (14:00)
[2017-07-21 14:35] LABS: IMMEDIATE SPIN CROSSMATCH 1 4
[2017-07-21] MEDS: PANTOPRAZOLE 40 MG INJ IV (17:35)
[2017-07-21] MEDS: hydrALAzine 20 MG INJ IV (17:36)
[2017-07-21 19:45] LABS: ANION GAP 24 (8-16); BLOOD UREA NITROGEN 73 mg/dl (7-20); CALCIUM 8.8 mg/dl (8.4-10.2); CARBON DIOXIDE 24 mmol/L (21-31); CHLORIDE 98 mmol/L (97-110); CREATININE 7.88 mg/dl (0.61-1.24); GLUCOSE 92 mg/dl (70-220); POTASSIUM 3.2 mmol/L (3.5-5.1); SODIUM 143 mmol/L (135-144)
[2017-07-21] MEDS: ATORVASTATIN 40 MG TAB PO (20:56)
[2017-07-22] MEDS: METOCLOPRAMIDE 10 MG INJ IV ×4 (00:19→18:41)
[2017-07-22] MEDS: OCULAR LUBRICANT 3.5 GM OPH OINT BOTH EYES ×4 (00:19→18:42)
[2017-07-22] MEDS: ARTIFICIAL TEARS 15 ML OPH BOTH EYES ×4 (00:19→18:42)
[2017-07-22] MEDS: FOSPHENYTOIN (PE) 100 MG in SOD CHLORIDE 0.9% 50 ML IVPB ×4 (02:27→22:35)
[2017-07-22 05:12] LABS: ADD MAN DIFF? NO
[2017-07-22 05:23] LABS: WHITE BLOOD COUNT 8.4 10^3/ul (4.8-10.8)
[2017-07-22 05:23] LABS: ABNORMAL IP MESSAGE 1; BASOPHIL # 0.1 10^3/ul (0.0-0.1); BASOPHILS % 0.6 % (0.0-2.0); EOSINOPHILS # 0.9 10^3/ul (0.0-0.5); EOSINOPHILS % 10.6 % (0.0-7.0); HEMATOCRIT 28.6 % (42.0-52.0); HEMOGLOBIN 9.4 g/dl (14.0-18.0); LYMPHOCYTES # 0.7 10^3/ul (0.8-2.9); LYMPHOCYTES % 7.7 % (15.0-51.0); MEAN CORPUSCULAR HEMOGLOBIN 30.7 pg (29.0-33.0); MEAN CORPUSCULAR HGB CONC 32.9 g/dl (32.0-37.0); MEAN CORPUSCULAR VOLUME 93.5 fl (82.0-101.0); MEAN PLATELET VOLUME 12.2 fl (7.4-10.4); MONOCYTE # 1.1 10^3/ul (0.3-0.9); MONOCYTES % 13.5 % (0.0-11.0); NEUTROPHIL # 5.7 10^3/ul (1.6-7.5); NEUTROPHILS % 67.2 % (39.0-77.0); POSITIVE DIFF @See below; RED BLOOD COUNT 3.06 10^6/ul (4.70-6.10); RED CELL DISTRIBUTION WIDTH 13.4 % (11.5-14.5)
[2017-07-22 05:35] LABS: PLATELET COUNT 61 10^3/UL (140-415)
[2017-07-22] MEDS: DESMOPRESSIN 20 MCG in SOD CHLORIDE 0.9% 50 ML IVPB (05:48)
[2017-07-22] MEDS: PANTOPRAZOLE 40 MG INJ IV ×2 (05:48→18:41)
[2017-07-22 05:50] LABS: MAGNESIUM 2.1 mg/dl (1.7-2.5)
[2017-07-22 05:50] LABS: PHOSPHORUS 9.6 mg/dl (2.5-4.9)
[2017-07-22 05:56] LABS: ANION GAP 26 (8-16); BLOOD UREA NITROGEN 89 mg/dl (7-20); CALCIUM 8.7 mg/dl (8.4-10.2); CARBON DIOXIDE 23 mmol/L (21-31); CHLORIDE 99 mmol/L (97-110); GLUCOSE 90 mg/dl (70-220); POTASSIUM 3.7 mmol/L (3.5-5.1); SODIUM 144 mmol/L (135-144)
[2017-07-22 06:02] LABS: CREATININE 8.63 mg/dl (0.61-1.24)
[2017-07-22 08:53] LABS: Allen Test ACCEPTAB; Arterial Base Excess -2.9 mmol/L (-3.0-3); Arterial Blood Gas Oxygen Sat 97.9 mmHG (95.0-98.0); Arterial COHb 0.2 % (0.0-3.0); Arterial Fraction of Oxyhgb 97.4 % (93.0-99.0); Arterial HCO3 22.6 mmol/L (22.0-26.0); Arterial MetHb 0.3 % (0.0-1.5); Arterial Total Hemglobin 10.8 g/dl (12.0-18.0); Arterial pCO2 41.7 mmhg (35-45); Blood Gas PS 10; MODE VENT - CPAP; Site Right Radial
[2017-07-22] MEDS: LEVETIRACETAM 500 MG (PMX) 100 ML IVPB ×2 (09:05→22:35)
[2017-07-22] MEDS: FERROUS SULFATE 60 MG/ML 5ML CUP NGT ×2 (09:05→22:36)
[2017-07-22] MEDS: VALPROIC ACID LIQUID CUP 250 MG/5 ML CUP NGT ×2 (09:06→22:36)
[2017-07-22] MEDS: hydrALAzine 20 MG INJ IV (10:19)
[2017-07-22] MEDS: FENTAnyl (DRIP) 1000 mcg/100mL 100 ML IV ×2 (12:29→22:17)
[2017-07-22] MEDS: ATORVASTATIN 40 MG TAB PO (22:36)
[2017-07-23] MEDS: METOCLOPRAMIDE 10 MG INJ IV ×5 (00:46→23:29)
[2017-07-23] MEDS: ARTIFICIAL TEARS 15 ML OPH BOTH EYES ×5 (00:46→23:30)
[2017-07-23] MEDS: OCULAR LUBRICANT 3.5 GM OPH OINT BOTH EYES ×5 (00:47→23:30)
[2017-07-23] MEDS: FOSPHENYTOIN (PE) 100 MG in SOD CHLORIDE 0.9% 50 ML IVPB ×4 (04:45→20:34)
[2017-07-23] MEDS: PANTOPRAZOLE 40 MG INJ IV ×2 (06:22→18:25)
[2017-07-23 06:51] LABS: ABNORMAL IP MESSAGE 1; HEMATOCRIT 26.7 % (42.0-52.0); HEMOGLOBIN 9.1 g/dl (14.0-18.0); MEAN CORPUSCULAR HEMOGLOBIN 31.8 pg (29.0-33.0); MEAN CORPUSCULAR HGB CONC 34.1 g/dl (32.0-37.0); MEAN CORPUSCULAR VOLUME 93.4 fl (82.0-101.0); MEAN PLATELET VOLUME 12.7 fl (7.4-10.4); PLATELET COUNT 66 10^3/UL (140-415); POSITIVE DIFF @See below; RED BLOOD COUNT 2.86 10^6/ul (4.70-6.10); RED CELL DISTRIBUTION WIDTH 13.2 % (11.5-14.5)
[2017-07-23 07:03] LABS: ADD MAN DIFF? YES
[2017-07-23 07:06] LABS: PHOSPHORUS 12.5 mg/dl (2.5-4.9)
[2017-07-23 07:06] LABS: MAGNESIUM 2.4 mg/dl (1.7-2.5)
[2017-07-23 07:15] LABS: ALANINE AMINOTRANSFERASE 30 IU/L (13-69); ALBUMIN 3.7 g/dl (3.3-4.9); ALBUMIN/GLOBULIN RATIO 0.92; ALKALINE PHOSPHATASE 109 IU/L (42-121); ANION GAP 32 (8-16); ASPARTATE AMINO TRANSFERASE 44 IU/L (15-46); CALCIUM 8.6 mg/dl (8.4-10.2); CARBON DIOXIDE 19 mmol/L (21-31); CHLORIDE 100 mmol/L (97-110); GLUCOSE 99 mg/dl (70-220); POTASSIUM 3.6 mmol/L (3.5-5.1); SODIUM 147 mmol/L (135-144); TOTAL PROTEIN 7.7 g/dl (6.1-8.1)
[2017-07-23 07:16] LABS: INR 1.18; PROTIME 15.1 Sec (12.2-14.2); PT RATIO 1.2
[2017-07-23 07:17] LABS: PARTIAL THROMBOPLASTIN TIME 37.1 Sec (25.0-35.0)
[2017-07-23 07:27] LABS: BLOOD UREA NITROGEN 120 mg/dl (7-20); CREATININE 11.13 mg/dl (0.61-1.24)
[2017-07-23] MEDS: HEPARIN 1000 UNITS/ML 10 ML INJ CATHETER (07:51)
[2017-07-23 08:56] LABS: BAND NEUTROPHILS #M 1.8 10^3/ul (0.0-0.6); BAND NEUTROPHILS % (M) 27 % (0-4); BASOPHIL #M 0.1 10^3/ul (0.0-0.0); BASOPHILS % (M) 2 % (0-2); EOSINOPHILS % (M) 22 % (0-7); LYMPHOCYTES #M 1.1 10^3/ul (0.8-2.9); LYMPHOCYTES % (M) 16 % (15-51); MONOCYTE #M 0.2 10^3/ul (0.3-0.9); MONOCYTES % (M) 4 % (0-11); PLATELET ESTIMATE SIG DECREASED; POLYCHROMASIA 2+ (0-0); SEG NEUT #M 2.2 10^3/ul (1.7-7.5); SEGMENTED NEUTROPHILS (M) % 29 % (39-77); SMUDGE%M 25 % (0-0)
[2017-07-23 09:32] LABS: HEPARIN INDUCED PLATELET AB NEGATIVE (NEGATIVE)
[2017-07-23] MEDS: VALPROIC ACID LIQUID CUP 250 MG/5 ML CUP NGT ×2 (09:46→20:35)
[2017-07-23] MEDS: FERROUS SULFATE 60 MG/ML 5ML CUP NGT ×2 (09:46→20:34)
[2017-07-23] MEDS: BALSAM PERU/CASTOR OIL 60 GM TUBE TOP (09:51)
[2017-07-23] MEDS: LEVETIRACETAM 500 MG (PMX) 100 ML IVPB ×2 (09:51→20:34)
[2017-07-23] MEDS: POTASSIUM CHLORIDE 20 MEQ POWDER FOR ORAL SOLN NGT (09:55)
[2017-07-23] MEDS: FENTAnyl (DRIP) 1000 mcg/100mL 100 ML IV (12:12)
[2017-07-23 12:43] LABS: Allen Test ACCEPTAB; Arterial Base Excess -2.8 mmol/L (-3.0-3); Arterial Blood Gas Oxygen Sat 96.6 mmHG (95.0-98.0); Arterial COHb 0.2 % (0.0-3.0); Arterial Fraction of Oxyhgb 96.4 % (93.0-99.0); Arterial HCO3 22.5 mmol/L (22.0-26.0); Arterial MetHb 0 % (0.0-1.5); Arterial pCO2 40.8 mmhg (35-45); Blood Gas PS 10; MODE VENT - CPAP; Site Right Radial
[2017-07-23 13:41] LABS: HEMATOCRIT 30.1 % (42.0-52.0); HEMOGLOBIN 10.1 g/dl (14.0-18.0)
[2017-07-23] MEDS: hydrALAzine 20 MG INJ IV ×2 (16:07→22:06)
[2017-07-23] MEDS: ACETAMINOPHEN 650 MG SUPP PR (20:08)
[2017-07-23] MEDS: ATORVASTATIN 40 MG TAB PO (20:34)
[2017-07-24] MEDS: FOSPHENYTOIN (PE) 100 MG in SOD CHLORIDE 0.9% 50 ML IVPB ×2 (03:29→08:59)
[2017-07-24 04:26] LABS: ADD MAN DIFF? NO
[2017-07-24 04:29] LABS: WHITE BLOOD COUNT 9.8 10^3/ul (4.8-10.8)
[2017-07-24 04:29] LABS: ABNORMAL IP MESSAGE 1; BASOPHILS % 0.3 % (0.0-2.0); EOSINOPHILS # 0.2 10^3/ul (0.0-0.5); EOSINOPHILS % 2.3 % (0.0-7.0); HEMATOCRIT 28.8 % (42.0-52.0); HEMOGLOBIN 9.4 g/dl (14.0-18.0); LYMPHOCYTES # 0.9 10^3/ul (0.8-2.9); LYMPHOCYTES % 9.1 % (15.0-51.0); MEAN CORPUSCULAR HEMOGLOBIN 30.5 pg (29.0-33.0); MEAN CORPUSCULAR HGB CONC 32.6 g/dl (32.0-37.0); MEAN CORPUSCULAR VOLUME 93.5 fl (82.0-101.0); MEAN PLATELET VOLUME 12.1 fl (7.4-10.4); MONOCYTE # 1.3 10^3/ul (0.3-0.9); NEUTROPHIL # 7.3 10^3/ul (1.6-7.5); PLATELET COUNT 90 10^3/UL (140-415); POSITIVE DIFF @See below; RED BLOOD COUNT 3.08 10^6/ul (4.70-6.10); RED CELL DISTRIBUTION WIDTH 13.3 % (11.5-14.5)
[2017-07-24 05:07] LABS: ANION GAP 30 (8-16); BLOOD UREA NITROGEN 96 mg/dl (7-20); CALCIUM 9.3 mg/dl (8.4-10.2); CARBON DIOXIDE 22 mmol/L (21-31); CHLORIDE 108 mmol/L (97-110); GLUCOSE 89 mg/dl (70-220); MAGNESIUM 2.4 mg/dl (1.7-2.5); PHOSPHORUS 8.9 mg/dl (2.5-4.9); POTASSIUM 3.8 mmol/L (3.5-5.1); SODIUM 156 mmol/L (135-144)
[2017-07-24] MEDS: METOCLOPRAMIDE 10 MG INJ IV (05:29)
[2017-07-24] MEDS: PANTOPRAZOLE 40 MG INJ IV ×2 (05:29→17:10)
[2017-07-24] MEDS: OCULAR LUBRICANT 3.5 GM OPH OINT BOTH EYES (05:30)
[2017-07-24] MEDS: ARTIFICIAL TEARS 15 ML OPH BOTH EYES (05:30)
[2017-07-24 05:43] LABS: CREATININE 9.48 mg/dl (0.61-1.24)
[2017-07-24] MEDS: hydrALAzine 20 MG INJ IV (06:27)
[2017-07-24] MEDS: VALPROIC ACID LIQUID CUP 250 MG/5 ML CUP NGT ×2 (08:59→20:25)
[2017-07-24] MEDS: LEVETIRACETAM 500 MG (PMX) 100 ML IVPB ×2 (08:59→20:36)
[2017-07-24] MEDS: FERROUS SULFATE 60 MG/ML 5ML CUP NGT ×2 (08:59→20:25)
[2017-07-24 09:00] LABS: Allen Test ACCEPTAB; Arterial Base Excess -6.3 mmol/L (-3.0-3); Arterial Blood Gas Oxygen Sat 95.4 mmHG (95.0-98.0); Arterial COHb 0.3 % (0.0-3.0); Arterial Fraction of Oxyhgb 94.8 % (93.0-99.0); Arterial HCO3 17.5 mmol/L (22.0-26.0); Arterial MetHb 0.3 % (0.0-1.5); Arterial Total Hemglobin 10.2 g/dl (12.0-18.0); Arterial pCO2 28.9 mmhg (35-45); MODE ROOM AIR; Site Right Radial
[2017-07-24] MEDS: BALSAM PERU/CASTOR OIL 60 GM TUBE TOP (09:00)
[2017-07-24] MEDS: DEXTROSE 5% 1,000 ML IV (11:31)
[2017-07-24] MEDS: morphine 2 MG INJ IV (11:54)
[2017-07-24] MEDS: LORAZEPAM 2 MG INJ IV ×2 (13:08→23:36)
[2017-07-24] MEDS: PHENYTOIN 100 MG CAP PO ×2 (15:19→20:31)
[2017-07-24] MEDS: ATORVASTATIN 40 MG TAB PO (20:26)
[2017-07-25] MEDS: DEXTROSE 5% 1,000 ML IV ×2 (00:37→15:05)
[2017-07-25 04:29] LABS: ADD MAN DIFF? NO
[2017-07-25 04:34] LABS: WHITE BLOOD COUNT 6.3 10^3/ul (4.8-10.8)
[2017-07-25 04:34] LABS: BASOPHIL # 0.1 10^3/ul (0.0-0.1); BASOPHILS % 0.8 % (0.0-2.0); EOSINOPHILS # 1.3 10^3/ul (0.0-0.5); HEMOGLOBIN 8.7 g/dl (14.0-18.0); LYMPHOCYTES # 0.9 10^3/ul (0.8-2.9); LYMPHOCYTES % 14.3 % (15.0-51.0); MEAN CORPUSCULAR HEMOGLOBIN 31.3 pg (29.0-33.0); MEAN CORPUSCULAR HGB CONC 33.5 g/dl (32.0-37.0); MEAN CORPUSCULAR VOLUME 93.5 fl (82.0-101.0); MEAN PLATELET VOLUME 11.5 fl (7.4-10.4); MONOCYTE # 0.7 10^3/ul (0.3-0.9); MONOCYTES % 10.8 % (0.0-11.0); NEUTROPHIL # 3.4 10^3/ul (1.6-7.5); NEUTROPHILS % 53.9 % (39.0-77.0); PLATELET COUNT 111 10^3/UL (140-415); RED BLOOD COUNT 2.78 10^6/ul (4.70-6.10); RED CELL DISTRIBUTION WIDTH 13.2 % (11.5-14.5)
[2017-07-25 05:05] LABS: PHOSPHORUS 11.8 mg/dl (2.5-4.9)
[2017-07-25 05:05] LABS: ANION GAP 33 (8-16); CALCIUM 9.3 mg/dl (8.4-10.2); CARBON DIOXIDE 18 mmol/L (21-31); CHLORIDE 104 mmol/L (97-110); CREATININE 12.54 mg/dl (0.61-1.24); GLUCOSE 82 mg/dl (70-220); MAGNESIUM 2.7 mg/dl (1.7-2.5); POTASSIUM 4.1 mmol/L (3.5-5.1); SODIUM 151 mmol/L (135-144)
[2017-07-25 05:26] LABS: BLOOD UREA NITROGEN 120 mg/dl (7-20)
[2017-07-25] MEDS: PANTOPRAZOLE 40 MG INJ IV ×2 (05:41→17:08)
[2017-07-25] MEDS: LORAZEPAM 2 MG INJ IV ×7 (05:41→23:08)
[2017-07-25] MEDS: VALPROIC ACID LIQUID CUP 250 MG/5 ML CUP NGT ×2 (08:33→20:55)
[2017-07-25] MEDS: PHENYTOIN 100 MG CAP PO ×2 (08:33→12:43)
[2017-07-25] MEDS: FERROUS SULFATE 60 MG/ML 5ML CUP NGT ×2 (08:33→20:55)
[2017-07-25] MEDS: BALSAM PERU/CASTOR OIL 60 GM TUBE TOP (08:34)
[2017-07-25] MEDS: LEVETIRACETAM 500 MG (PMX) 100 ML IVPB (08:37)
[2017-07-25] MEDS: morphine 2 MG INJ IV (16:29)
[2017-07-25] MEDS: hydrALAzine 20 MG INJ IV (17:08)
[2017-07-25] MEDS: ATORVASTATIN 40 MG TAB PO (20:55)
[2017-07-26] MEDS: LORAZEPAM 2 MG INJ IV ×2 (01:09→07:30)
[2017-07-26] MEDS: DEXTROSE 5% 1,000 ML IV ×2 (01:12→13:10)
[2017-07-26] MEDS: hydrALAzine 20 MG INJ IV ×2 (01:32→06:32)
[2017-07-26] MEDS: morphine 2 MG INJ IV (02:09)
[2017-07-26 04:56] LABS: ADD MAN DIFF? NO
[2017-07-26 05:00] LABS: WHITE BLOOD COUNT 9.6 10^3/ul (4.8-10.8)
[2017-07-26 05:00] LABS: HEMOGLOBIN 8.8 g/dl (14.0-18.0); MEAN CORPUSCULAR HEMOGLOBIN 31.2 pg (29.0-33.0); MEAN CORPUSCULAR VOLUME 92.2 fl (82.0-101.0); RED BLOOD COUNT 2.82 10^6/ul (4.70-6.10)
[2017-07-26 05:01] LABS: BASOPHIL # 0.1 10^3/ul (0.0-0.1); BASOPHILS % 0.5 % (0.0-2.0); EOSINOPHILS # 1.7 10^3/ul (0.0-0.5); LYMPHOCYTES # 0.9 10^3/ul (0.8-2.9); LYMPHOCYTES % 8.9 % (15.0-51.0); MEAN CORPUSCULAR HGB CONC 33.8 g/dl (32.0-37.0); MONOCYTE # 0.9 10^3/ul (0.3-0.9); MONOCYTES % 9.1 % (0.0-11.0); NEUTROPHIL # 6.1 10^3/ul (1.6-7.5); NEUTROPHILS % 63.3 % (39.0-77.0); PLATELET COUNT 122 10^3/UL (140-415); RED CELL DISTRIBUTION WIDTH 13.6 % (11.5-14.5)
[2017-07-26] MEDS: PANTOPRAZOLE 40 MG INJ IV ×2 (05:26→18:15)
[2017-07-26 05:32] LABS: MAGNESIUM 2.8 mg/dl (1.7-2.5)
[2017-07-26 05:37] LABS: ANION GAP 37 (8-16); CALCIUM 8.6 mg/dl (8.4-10.2); CARBON DIOXIDE 14 mmol/L (21-31); CHLORIDE 107 mmol/L (97-110); GLUCOSE 81 mg/dl (70-220); POTASSIUM 4.2 mmol/L (3.5-5.1); SODIUM 154 mmol/L (135-144)
[2017-07-26] MEDS ORDERED: AMLODIPINE 5 MG TAB (05:46)
[2017-07-26] MEDS: AMLODIPINE 5 MG TAB PO ×2 (05:50→09:34)
[2017-07-26 06:13] LABS: BLOOD UREA NITROGEN 136 mg/dl (7-20); CREATININE 13.71 mg/dl (0.61-1.24)
[2017-07-26 06:13] LABS: PHOSPHORUS 12.4 mg/dl (2.5-4.9)
[2017-07-26] MEDS ORDERED: AMLODIPINE 10 MG TAB (09:28)
[2017-07-26] MEDS: FERROUS SULFATE 60 MG/ML 5ML CUP NGT ×2 (09:32→20:44)
[2017-07-26] MEDS: VALPROIC ACID LIQUID CUP 250 MG/5 ML CUP NGT ×2 (09:33→20:55)
[2017-07-26] MEDS: BALSAM PERU/CASTOR OIL 60 GM TUBE TOP (09:34)
[2017-07-26] MEDS: HEPARIN 5,000 UNIT/0.5 ML VIAL SC ×2 (10:39→20:54)
[2017-07-26] MEDS: QUETIAPINE 25 MG TAB PO ×2 (10:39→20:45)
[2017-07-26] MEDS: ALPRAZOLAM 0.25 MG TAB PO (14:17)
[2017-07-26] MEDS: ALBUMIN HUMAN 25% 100 ML IV (16:30)
[2017-07-26] MEDS: ATORVASTATIN 40 MG TAB PO (20:45)
[2017-07-27] MEDS: PANTOPRAZOLE 40 MG INJ IV ×2 (05:13→17:46)
[2017-07-27 07:35] LABS: ADD MAN DIFF? NO
[2017-07-27 07:37] LABS: WHITE BLOOD COUNT 6.2 10^3/ul (4.8-10.8)
[2017-07-27 07:37] LABS: BASOPHILS % 0.6 % (0.0-2.0); HEMATOCRIT 24.6 % (42.0-52.0); HEMOGLOBIN 8.3 g/dl (14.0-18.0); LYMPHOCYTES # 0.7 10^3/ul (0.8-2.9); LYMPHOCYTES % 11.4 % (15.0-51.0); MEAN CORPUSCULAR HEMOGLOBIN 30.9 pg (29.0-33.0); MEAN CORPUSCULAR HGB CONC 33.7 g/dl (32.0-37.0); MEAN CORPUSCULAR VOLUME 91.4 fl (82.0-101.0); MEAN PLATELET VOLUME 11.5 fl (7.4-10.4); MONOCYTE # 0.8 10^3/ul (0.3-0.9); MONOCYTES % 12.9 % (0.0-11.0); NEUTROPHIL # 3.7 10^3/ul (1.6-7.5); PLATELET COUNT 137 10^3/UL (140-415); RED BLOOD COUNT 2.69 10^6/ul (4.70-6.10); RED CELL DISTRIBUTION WIDTH 13.3 % (11.5-14.5)
[2017-07-27 07:40] LABS: EOSINOPHILS % 15.9 % (0.0-7.0)
[2017-07-27 08:14] LABS: ANION GAP 24 (8-16); BLOOD UREA NITROGEN 81 mg/dl (7-20); CALCIUM 8.4 mg/dl (8.4-10.2); CARBON DIOXIDE 23 mmol/L (21-31); CHLORIDE 99 mmol/L (97-110); CREATININE 10.04 mg/dl (0.61-1.24); GLUCOSE 84 mg/dl (70-220); MAGNESIUM 2.1 mg/dl (1.7-2.5); POTASSIUM 3.5 mmol/L (3.5-5.1); SODIUM 142 mmol/L (135-144)
[2017-07-27] MEDS: VALPROIC ACID LIQUID CUP 250 MG/5 ML CUP NGT ×2 (09:03→21:50)
[2017-07-27] MEDS: BALSAM PERU/CASTOR OIL 60 GM TUBE TOP (09:03)
[2017-07-27] MEDS: FERROUS SULFATE 60 MG/ML 5ML CUP NGT ×2 (09:03→20:57)
[2017-07-27] MEDS: AMLODIPINE 5 MG TAB PO (09:03)
[2017-07-27] MEDS: HEPARIN 5,000 UNIT/0.5 ML VIAL SC ×2 (09:15→21:01)
[2017-07-27] MEDS: QUETIAPINE 25 MG TAB PO ×2 (09:15→20:57)
[2017-07-27] MEDS: ATORVASTATIN 40 MG TAB PO (20:57)
[2017-07-28] MEDS: PANTOPRAZOLE 40 MG INJ IV ×2 (05:15→18:00)
[2017-07-28 08:08] LABS: ADD MAN DIFF? NO
[2017-07-28 08:12] LABS: BASOPHIL # 0.1 10^3/ul (0.0-0.1); BASOPHILS % 0.7 % (0.0-2.0); EOSINOPHILS # 1.8 10^3/ul (0.0-0.5); EOSINOPHILS % 23.7 % (0.0-7.0); HEMATOCRIT 25.2 % (42.0-52.0); HEMOGLOBIN 8.6 g/dl (14.0-18.0); LYMPHOCYTES # 0.7 10^3/ul (0.8-2.9); LYMPHOCYTES % 9.5 % (15.0-51.0); MEAN CORPUSCULAR HEMOGLOBIN 31.4 pg (29.0-33.0); MEAN CORPUSCULAR HGB CONC 34.1 g/dl (32.0-37.0); MEAN PLATELET VOLUME 11.5 fl (7.4-10.4); MONOCYTE # 0.9 10^3/ul (0.3-0.9); MONOCYTES % 11.9 % (0.0-11.0); NEUTROPHIL # 4.1 10^3/ul (1.6-7.5); NEUTROPHILS % 53.9 % (39.0-77.0); PLATELET COUNT 160 10^3/UL (140-415); RED BLOOD COUNT 2.74 10^6/ul (4.70-6.10); RED CELL DISTRIBUTION WIDTH 13.2 % (11.5-14.5)
[2017-07-28 08:12] LABS: WHITE BLOOD COUNT 7.7 10^3/ul (4.8-10.8)
[2017-07-28 08:31] LABS: ANION GAP 30 (8-16); BLOOD UREA NITROGEN 107 mg/dl (7-20); CALCIUM 8.5 mg/dl (8.4-10.2); CARBON DIOXIDE 19 mmol/L (21-31); CHLORIDE 98 mmol/L (97-110); CREATININE 12.79 mg/dl (0.61-1.24); GLUCOSE 90 mg/dl (70-220); POTASSIUM 3.8 mmol/L (3.5-5.1); SODIUM 143 mmol/L (135-144)
[2017-07-28] MEDS: HEPARIN 5,000 UNIT/0.5 ML VIAL SC ×2 (09:00→21:05)
[2017-07-28] MEDS: BALSAM PERU/CASTOR OIL 60 GM TUBE TOP (09:00)
[2017-07-28] MEDS: AMLODIPINE 5 MG TAB PO (09:00)
[2017-07-28] MEDS: VALPROIC ACID LIQUID CUP 250 MG/5 ML CUP NGT ×2 (09:00→20:55)
[2017-07-28] MEDS: FERROUS SULFATE 60 MG/ML 5ML CUP NGT ×2 (09:00→20:55)
[2017-07-28] MEDS: QUETIAPINE 25 MG TAB PO ×2 (09:00→20:55)
[2017-07-28] MEDS: ETOMIDATE 20 MG INJ (18:05)
[2017-07-28] MEDS: MIDAZOLAM 1 MG/ML 2 ML INJ (18:05)
[2017-07-28] MEDS: LIDOCAINE 2% (SDV) 5 ML INJ (18:05)
[2017-07-28] MEDS ORDERED: ONDANSETRON 4 MG INJ IV (18:30)
[2017-07-28] MEDS: ESMOLOL 10 ML (19:09)
[2017-07-28] MEDS: ATORVASTATIN 40 MG TAB PO (20:54)
[2017-07-29] MEDS: PANTOPRAZOLE 40 MG INJ IV ×2 (05:59→17:37)
[2017-07-29] MEDS: LISINOPRIL 5 MG TAB PO (09:00)
[2017-07-29] MEDS: AMLODIPINE 5 MG TAB PO (09:00)
[2017-07-29] MEDS: VALPROIC ACID LIQUID CUP 250 MG/5 ML CUP NGT ×2 (09:00→20:35)
[2017-07-29] MEDS: QUETIAPINE 25 MG TAB PO ×2 (09:00→20:39)
[2017-07-29] MEDS: HEPARIN 5,000 UNIT/0.5 ML VIAL SC ×2 (09:00→20:40)
[2017-07-29] MEDS: BALSAM PERU/CASTOR OIL 60 GM TUBE TOP (09:00)
[2017-07-29] MEDS: FERROUS SULFATE 60 MG/ML 5ML CUP NGT ×2 (09:00→20:36)
[2017-07-29 09:31] LABS: ADD MAN DIFF? NO
[2017-07-29 09:38] LABS: BASOPHILS % 0.5 % (0.0-2.0); EOSINOPHILS # 1.8 10^3/ul (0.0-0.5); EOSINOPHILS % 20.3 % (0.0-7.0); HEMATOCRIT 24.3 % (42.0-52.0); HEMOGLOBIN 8.2 g/dl (14.0-18.0); LYMPHOCYTES # 0.8 10^3/ul (0.8-2.9); LYMPHOCYTES % 8.6 % (15.0-51.0); MEAN CORPUSCULAR HEMOGLOBIN 31.1 pg (29.0-33.0); MEAN CORPUSCULAR HGB CONC 33.7 g/dl (32.0-37.0); MEAN PLATELET VOLUME 11.4 fl (7.4-10.4); MONOCYTES % 11.4 % (0.0-11.0); NEUTROPHIL # 5.2 10^3/ul (1.6-7.5); NEUTROPHILS % 58.7 % (39.0-77.0); PLATELET COUNT 159 10^3/UL (140-415); RED BLOOD COUNT 2.64 10^6/ul (4.70-6.10); RED CELL DISTRIBUTION WIDTH 13.2 % (11.5-14.5)
[2017-07-29 09:38] LABS: WHITE BLOOD COUNT 8.8 10^3/ul (4.8-10.8)
[2017-07-29 10:35] LABS: ANION GAP 33 (8-16); CARBON DIOXIDE 17 mmol/L (21-31); CHLORIDE 94 mmol/L (97-110); GLUCOSE 104 mg/dl (70-220); SODIUM 140 mmol/L (135-144)
[2017-07-29 10:44] LABS: BLOOD UREA NITROGEN 128 mg/dl (7-20); CREATININE 14.47 mg/dl (0.61-1.24)
[2017-07-29] MEDS: ASPIRIN 81 MG TAB PO (13:00)
[2017-07-29] MEDS: ATORVASTATIN 40 MG TAB PO (20:34)
[2017-07-29] MEDS: LORAZEPAM 2 MG INJ IV (23:53)
[2017-07-30] MEDS: PANTOPRAZOLE 40 MG INJ IV ×2 (05:52→18:00)
[2017-07-30 08:29] LABS: ADD MAN DIFF? NO
[2017-07-30 08:52] LABS: WHITE BLOOD COUNT 8.5 10^3/ul (4.8-10.8)
[2017-07-30 08:52] LABS: BASOPHILS % 0.2 % (0.0-2.0); EOSINOPHILS # 1.7 10^3/ul (0.0-0.5); HEMATOCRIT 23.5 % (42.0-52.0); HEMOGLOBIN 7.8 g/dl (14.0-18.0); LYMPHOCYTES # 1.2 10^3/ul (0.8-2.9); LYMPHOCYTES % 13.6 % (15.0-51.0); MEAN CORPUSCULAR HGB CONC 33.2 g/dl (32.0-37.0); MEAN CORPUSCULAR VOLUME 93.3 fl (82.0-101.0); MEAN PLATELET VOLUME 11.4 fl (7.4-10.4); MONOCYTE # 1.2 10^3/ul (0.3-0.9); MONOCYTES % 13.7 % (0.0-11.0); NEUTROPHIL # 4.4 10^3/ul (1.6-7.5); PLATELET COUNT 166 10^3/UL (140-415); RED BLOOD COUNT 2.52 10^6/ul (4.70-6.10); RED CELL DISTRIBUTION WIDTH 13.1 % (11.5-14.5)
[2017-07-30 08:59] LABS: ANION GAP 24 (8-16); BLOOD UREA NITROGEN 87 mg/dl (7-20); CALCIUM 8.1 mg/dl (8.4-10.2); CARBON DIOXIDE 21 mmol/L (21-31); CHLORIDE 98 mmol/L (97-110); CREATININE 11.69 mg/dl (0.61-1.24); GLUCOSE 90 mg/dl (70-220); POTASSIUM 3.8 mmol/L (3.5-5.1); SODIUM 139 mmol/L (135-144)
[2017-07-30] MEDS: AMLODIPINE 5 MG TAB PO (09:00)
[2017-07-30] MEDS: BALSAM PERU/CASTOR OIL 60 GM TUBE TOP (09:00)
[2017-07-30] MEDS: QUETIAPINE 25 MG TAB PO ×2 (09:00→21:52)
[2017-07-30] MEDS: VALPROIC ACID LIQUID CUP 250 MG/5 ML CUP NGT ×2 (09:00→21:51)
[2017-07-30] MEDS: FERROUS SULFATE 60 MG/ML 5ML CUP NGT ×2 (09:00→21:50)
[2017-07-30] MEDS: ASPIRIN 81 MG TAB PO (09:00)
[2017-07-30] MEDS: LISINOPRIL 5 MG TAB PO (09:00)
[2017-07-30] MEDS: HEPARIN 5,000 UNIT/0.5 ML VIAL SC ×2 (09:00→22:08)
[2017-07-30 09:10] LABS: EOSINOPHILS % 20.1 % (0.0-7.0)
[2017-07-30] MEDS: LORAZEPAM 2 MG INJ IV (14:36)
[2017-07-30] MEDS: METOPROLOL 5 MG INJ IV (17:50)
[2017-07-30] MEDS: SOD CHLORIDE 0.9% 1,000 ML IV ×2 (21:49→21:50)
[2017-07-30] MEDS: ATORVASTATIN 40 MG TAB PO (21:51)
[2017-07-30] MEDS: ALPRAZOLAM 0.25 MG TAB PO (21:51)
[2017-07-31] MEDS: MIDODRINE 5 MG TAB PO ×4 (00:58→18:22)
[2017-07-31] MEDS: SOD CHLORIDE 0.9% 250 ML IV (00:58)
[2017-07-31] MEDS ORDERED: ALBUMIN HUMAN 25% 50 ML (02:43)
[2017-07-31] MEDS ORDERED: NORepinephrine 8MG/250 ML (PMX 250 ML (03:32)
[2017-07-31] MEDS: SOD CHLORIDE 0.9% 1,000 ML IV ×3 (04:18→20:16)
[2017-07-31] MEDS: NORepinephrine 8MG/250 ML (PMX 250 ML IV (04:21)
[2017-07-31] MEDS: PANTOPRAZOLE 40 MG INJ IV ×2 (05:48→18:22)
[2017-07-31 06:21] LABS: ADD MAN DIFF? NO
[2017-07-31 06:32] LABS: ABNORMAL IP MESSAGE 1; BASOPHIL # 0.1 10^3/ul (0.0-0.1); BASOPHILS % 0.2 % (0.0-2.0); EOSINOPHILS # 0.4 10^3/ul (0.0-0.5); EOSINOPHILS % 1.5 % (0.0-7.0); HEMATOCRIT 19.2 % (42.0-52.0); LYMPHOCYTES # 2.3 10^3/ul (0.8-2.9); LYMPHOCYTES % 9.7 % (15.0-51.0); MEAN CORPUSCULAR HEMOGLOBIN 31.2 pg (29.0-33.0); MEAN CORPUSCULAR HGB CONC 32.8 g/dl (32.0-37.0); MEAN PLATELET VOLUME 11.5 fl (7.4-10.4); MONOCYTE # 2.4 10^3/ul (0.3-0.9); MONOCYTES % 10.1 % (0.0-11.0); NEUTROPHIL # 18.5 10^3/ul (1.6-7.5); NEUTROPHILS % 77.2 % (39.0-77.0); PLATELET COUNT 138 10^3/UL (140-415); POSITIVE DIFF @See below; RED BLOOD COUNT 2.02 10^6/ul (4.70-6.10); RED CELL DISTRIBUTION WIDTH 13.6 % (11.5-14.5)
[2017-07-31 06:39] LABS: HEMOGLOBIN 6.3 g/dl (14.0-18.0)
[2017-07-31 07:14] LABS: ANION GAP 25 (8-16); BLOOD UREA NITROGEN 100 mg/dl (7-20); CALCIUM 7.1 mg/dl (8.4-10.2); CARBON DIOXIDE 17 mmol/L (21-31); CHLORIDE 101 mmol/L (97-110); CREATININE 13.38 mg/dl (0.61-1.24); GLUCOSE 82 mg/dl (70-220); POTASSIUM 3.8 mmol/L (3.5-5.1); SODIUM 139 mmol/L (135-144)
[2017-07-31] MEDS: FERROUS SULFATE 60 MG/ML 5ML CUP NGT ×2 (08:22→20:05)
[2017-07-31] MEDS: ASPIRIN 81 MG TAB PO (08:22)
[2017-07-31] MEDS: LEVOFLOXACIN 500MG/D5W (PMX) 100 ML IVPB (08:22)
[2017-07-31] MEDS: VALPROIC ACID LIQUID CUP 250 MG/5 ML CUP NGT ×2 (08:22→20:06)
[2017-07-31] MEDS: HEPARIN 5,000 UNIT/0.5 ML VIAL SC ×2 (08:23→20:18)
[2017-07-31] MEDS: LORAZEPAM 2 MG INJ IV ×2 (08:30→20:46)
[2017-07-31] MEDS: AMLODIPINE 5 MG TAB PO (08:52)
[2017-07-31] MEDS: LISINOPRIL 5 MG TAB PO (08:52)
[2017-07-31] MEDS: QUETIAPINE 25 MG TAB PO ×2 (09:56→20:15)
[2017-07-31] MEDS: BALSAM PERU/CASTOR OIL 60 GM TUBE TOP (10:39)
[2017-07-31] MEDS ORDERED: VANCOMYCIN IV PER PHARMACY XX (13:30)
[2017-07-31] MEDS: CEFEPIME 2GM/50 ML (PMX) 50 ML IVPB (14:01)
[2017-07-31 14:22] LABS: IMMEDIATE SPIN CROSSMATCH 1 4
[2017-07-31 16:25] LABS: LACTIC ACID 0.9 mmol/L (0.5-2.0)
[2017-07-31] MEDS: VANCOMYCIN 2 GM in SOD CHLORIDE 0.9% 500 ML IVPB (16:39)
[2017-07-31] MEDS: ATORVASTATIN 40 MG TAB PO (20:05)
[2017-07-31] MEDS: HALOPERIDOL 5 MG INJ IM (21:32)
[2017-08-01] MEDS: PANTOPRAZOLE 40 MG INJ IV ×2 (05:18→17:48)
[2017-08-01] MEDS: SOD CHLORIDE 0.9% 1,000 ML IV ×3 (05:18→20:30)
[2017-08-01 05:45] LABS: ADD MAN DIFF? NO
[2017-08-01 06:02] LABS: BASOPHIL # 0.1 10^3/ul (0.0-0.1); BASOPHILS % 0.4 % (0.0-2.0); EOSINOPHILS # 1.7 10^3/ul (0.0-0.5); EOSINOPHILS % 12.1 % (0.0-7.0); HEMATOCRIT 23.6 % (42.0-52.0); LYMPHOCYTES # 1.6 10^3/ul (0.8-2.9); LYMPHOCYTES % 11.3 % (15.0-51.0); MEAN CORPUSCULAR HEMOGLOBIN 31.7 pg (29.0-33.0); MEAN CORPUSCULAR HGB CONC 33.9 g/dl (32.0-37.0); MEAN CORPUSCULAR VOLUME 93.7 fl (82.0-101.0); MONOCYTE # 1.5 10^3/ul (0.3-0.9); MONOCYTES % 10.4 % (0.0-11.0); NEUTROPHIL # 9.3 10^3/ul (1.6-7.5); NEUTROPHILS % 65.4 % (39.0-77.0); PLATELET COUNT 127 10^3/UL (140-415); RED BLOOD COUNT 2.52 10^6/ul (4.70-6.10)
[2017-08-01 06:02] LABS: WHITE BLOOD COUNT 14.2 10^3/ul (4.8-10.8)
[2017-08-01 06:30] LABS: ANION GAP 20 (8-16)
[2017-08-01 06:44] LABS: BLOOD UREA NITROGEN 62 mg/dl (7-20); CALCIUM 7.5 mg/dl (8.4-10.2); CARBON DIOXIDE 21 mmol/L (21-31); CHLORIDE 102 mmol/L (97-110); CREATININE 9.49 mg/dl (0.61-1.24); GLUCOSE 73 mg/dl (70-220); POTASSIUM 3.7 mmol/L (3.5-5.1); SODIUM 139 mmol/L (135-144)
[2017-08-01] MEDS: FERROUS SULFATE 60 MG/ML 5ML CUP NGT ×2 (08:58→21:51)
[2017-08-01] MEDS: AMLODIPINE 5 MG TAB PO (08:58)
[2017-08-01] MEDS: LISINOPRIL 5 MG TAB PO (08:58)
[2017-08-01] MEDS: QUETIAPINE 25 MG TAB PO ×2 (08:58→21:53)
[2017-08-01] MEDS: ASPIRIN 81 MG TAB PO (08:58)
[2017-08-01] MEDS: VALPROIC ACID LIQUID CUP 250 MG/5 ML CUP NGT ×2 (08:59→21:51)
[2017-08-01] MEDS: BALSAM PERU/CASTOR OIL 60 GM TUBE TOP (09:00)
[2017-08-01] MEDS: MIDODRINE 5 MG TAB PO ×3 (09:02→17:00)
[2017-08-01] MEDS: HEPARIN 5,000 UNIT/0.5 ML VIAL SC ×2 (09:03→21:55)
[2017-08-01] MEDS: CEFEPIME 2GM/50 ML (PMX) 50 ML IVPB (13:23)
[2017-08-01] MEDS: ATORVASTATIN 40 MG TAB PO (21:53)
[2017-08-02] MEDS: SOD CHLORIDE 0.9% 1,000 ML IV (04:30)
[2017-08-02] MEDS: morphine 2 MG INJ IV ×2 (04:44→17:28)
[2017-08-02] MEDS: PANTOPRAZOLE 40 MG INJ IV ×2 (07:06→17:28)
[2017-08-02 07:14] LABS: ADD MAN DIFF? NO
[2017-08-02 07:22] LABS: BASOPHILS % 0.2 % (0.0-2.0); EOSINOPHILS # 1.4 10^3/ul (0.0-0.5); EOSINOPHILS % 15.3 % (0.0-7.0); HEMATOCRIT 21.7 % (42.0-52.0); HEMOGLOBIN 7.3 g/dl (14.0-18.0); LYMPHOCYTES # 1.6 10^3/ul (0.8-2.9); MEAN CORPUSCULAR HEMOGLOBIN 31.1 pg (29.0-33.0); MEAN CORPUSCULAR HGB CONC 33.6 g/dl (32.0-37.0); MEAN CORPUSCULAR VOLUME 92.3 fl (82.0-101.0); MONOCYTE # 1.1 10^3/ul (0.3-0.9); MONOCYTES % 12.3 % (0.0-11.0); NEUTROPHILS % 54.9 % (39.0-77.0); PLATELET COUNT 109 10^3/UL (140-415); RED BLOOD COUNT 2.35 10^6/ul (4.70-6.10); RED CELL DISTRIBUTION WIDTH 13.8 % (11.5-14.5)
[2017-08-02 07:22] LABS: WHITE BLOOD COUNT 9.2 10^3/ul (4.8-10.8)
[2017-08-02 07:50] LABS: ANION GAP 20 (8-16); BLOOD UREA NITROGEN 71 mg/dl (7-20); CALCIUM 6.8 mg/dl (8.4-10.2); CARBON DIOXIDE 18 mmol/L (21-31); CHLORIDE 103 mmol/L (97-110); CREATININE 10.72 mg/dl (0.61-1.24); GLUCOSE 81 mg/dl (70-220); POTASSIUM 3.7 mmol/L (3.5-5.1); SODIUM 137 mmol/L (135-144)
[2017-08-02 07:51] LABS: VANCOMYCIN,RANDOM 22.2 ug/ml
[2017-08-02] MEDS: FERROUS SULFATE 60 MG/ML 5ML CUP NGT ×2 (09:18→20:26)
[2017-08-02] MEDS: ASPIRIN 81 MG TAB PO (09:18)
[2017-08-02] MEDS: QUETIAPINE 25 MG TAB PO ×2 (09:19→20:26)
[2017-08-02] MEDS: AMLODIPINE 5 MG TAB PO (09:19)
[2017-08-02] MEDS: BALSAM PERU/CASTOR OIL 60 GM TUBE TOP (09:20)
[2017-08-02] MEDS: LISINOPRIL 5 MG TAB PO (09:20)
[2017-08-02] MEDS: MIDODRINE 5 MG TAB PO ×2 (09:38→12:54)
[2017-08-02] MEDS: HEPARIN 5,000 UNIT/0.5 ML VIAL SC ×2 (09:58→20:29)
[2017-08-02] MEDS: VALPROIC ACID LIQUID CUP 250 MG/5 ML CUP NGT ×2 (09:59→21:37)
[2017-08-02] MEDS: CEFEPIME 2GM/50 ML (PMX) 50 ML IVPB (12:53)
[2017-08-02] MEDS: ATORVASTATIN 40 MG TAB PO (20:26)
[2017-08-03] MEDS: PANTOPRAZOLE 40 MG INJ IV ×3 (05:28→17:30)
[2017-08-03] MEDS: morphine 2 MG INJ IV ×2 (05:34→14:53)
[2017-08-03 07:08] LABS: ADD MAN DIFF? NO
[2017-08-03 07:16] LABS: WHITE BLOOD COUNT 8.1 10^3/ul (4.8-10.8)
[2017-08-03 07:16] LABS: BASOPHILS % 0.2 % (0.0-2.0); EOSINOPHILS # 1.2 10^3/ul (0.0-0.5); HEMATOCRIT 23.4 % (42.0-52.0); LYMPHOCYTES # 1.5 10^3/ul (0.8-2.9); LYMPHOCYTES % 18.9 % (15.0-51.0); MEAN CORPUSCULAR HEMOGLOBIN 31.4 pg (29.0-33.0); MEAN CORPUSCULAR HGB CONC 34.2 g/dl (32.0-37.0); MEAN CORPUSCULAR VOLUME 91.8 fl (82.0-101.0); MEAN PLATELET VOLUME 11.3 fl (7.4-10.4); MONOCYTES % 12.5 % (0.0-11.0); NEUTROPHIL # 4.3 10^3/ul (1.6-7.5); PLATELET COUNT 115 10^3/UL (140-415); RED BLOOD COUNT 2.55 10^6/ul (4.70-6.10); RED CELL DISTRIBUTION WIDTH 13.4 % (11.5-14.5)
[2017-08-03 07:36] LABS: ANION GAP 22 (8-16); BLOOD UREA NITROGEN 76 mg/dl (7-20); CALCIUM 6.9 mg/dl (8.4-10.2); CARBON DIOXIDE 17 mmol/L (21-31); CHLORIDE 104 mmol/L (97-110); CREATININE 12.39 mg/dl (0.61-1.24); GLUCOSE 78 mg/dl (70-220); POTASSIUM 3.9 mmol/L (3.5-5.1); SODIUM 139 mmol/L (135-144)
[2017-08-03 07:48] LABS: PHOSPHORUS 7.1 mg/dl (2.5-4.9)
[2017-08-03 07:48] LABS: MAGNESIUM 1.5 mg/dl (1.7-2.5)
[2017-08-03] MEDS: HEPARIN 5,000 UNIT/0.5 ML VIAL SC ×2 (08:55→21:00)
[2017-08-03] MEDS: BALSAM PERU/CASTOR OIL 60 GM TUBE TOP (08:55)
[2017-08-03] MEDS: FERROUS SULFATE 60 MG/ML 5ML CUP NGT ×2 (08:55→21:16)
[2017-08-03] MEDS: QUETIAPINE 25 MG TAB PO ×2 (08:55→21:00)
[2017-08-03] MEDS: VALPROIC ACID LIQUID CUP 250 MG/5 ML CUP NGT ×2 (08:55→21:16)
[2017-08-03] MEDS: ASPIRIN 81 MG TAB PO (08:59)
[2017-08-03] MEDS: AMLODIPINE 5 MG TAB PO (09:00)
[2017-08-03] MEDS: LISINOPRIL 5 MG TAB PO (09:00)
[2017-08-03] MEDS: MAGNESIUM SULFATE 2 GM/50 ML 50 ML IVPB (11:45)
[2017-08-03] MEDS ORDERED: MIDAZOLAM 1 MG/ML 2 ML INJ (11:59)
[2017-08-03] MEDS ORDERED: FENTAnyl 50 MCG/ML VIAL (12:00)
[2017-08-03] MEDS ORDERED: LIDOCAINE 1% (MDV) 20 ML INJ (12:00)
[2017-08-03] MEDS ORDERED: VERAPAMIL 5 MG INJ (12:00)
[2017-08-03] MEDS ORDERED: HEPARIN 1000 UNITS/ML 10 ML INJ (12:00)
[2017-08-03] MEDS ORDERED: NITROGLYCERIN (IC) 100 MCG/ML INJ (12:00)
[2017-08-03] MEDS ORDERED: IODIXANOL LOCM 100 ML BTL (12:00)
[2017-08-03] MEDS: CEFEPIME 2GM/50 ML (PMX) 50 ML IVPB (12:49)
[2017-08-03] MEDS ORDERED: HEPARIN 1000 UNITS/ML 10 ML INJ CATHETER (17:00)
[2017-08-03] MEDS: HEPARIN 1000 UNITS/ML 10 ML INJ CATHETER (17:21)
[2017-08-03] MEDS ORDERED: VANCOMYCIN 1 GM in NS 250 ML IVPB (18:00)
[2017-08-03] MEDS: ATORVASTATIN 40 MG TAB PO (21:17)
[2017-08-04] MEDS: morphine 2 MG INJ IV (01:09)
[2017-08-04] MEDS: PANTOPRAZOLE 40 MG INJ IV ×2 (06:00→17:40)
[2017-08-04] MEDS: FERROUS SULFATE 60 MG/ML 5ML CUP NGT ×2 (08:40→20:41)
[2017-08-04] MEDS: QUETIAPINE 25 MG TAB PO ×2 (08:41→20:41)
[2017-08-04] MEDS: VALPROIC ACID LIQUID CUP 250 MG/5 ML CUP NGT ×2 (08:41→20:41)
[2017-08-04] MEDS: ASPIRIN 81 MG TAB PO (08:41)
[2017-08-04] MEDS: LISINOPRIL 5 MG TAB PO (08:42)
[2017-08-04] MEDS: AMLODIPINE 5 MG TAB PO (08:42)
[2017-08-04] MEDS: BALSAM PERU/CASTOR OIL 60 GM TUBE TOP (08:44)
[2017-08-04] MEDS: HEPARIN 5,000 UNIT/0.5 ML VIAL SC ×2 (08:45→20:44)
[2017-08-04 09:26] LABS: ADD MAN DIFF? NO
[2017-08-04 09:27] LABS: BASOPHILS % 0.3 % (0.0-2.0); EOSINOPHILS # 0.9 10^3/ul (0.0-0.5); HEMATOCRIT 24.6 % (42.0-52.0); HEMOGLOBIN 8.2 g/dl (14.0-18.0); LYMPHOCYTES # 1.3 10^3/ul (0.8-2.9); LYMPHOCYTES % 19.4 % (15.0-51.0); MEAN CORPUSCULAR HEMOGLOBIN 30.9 pg (29.0-33.0); MEAN CORPUSCULAR HGB CONC 33.3 g/dl (32.0-37.0); MEAN CORPUSCULAR VOLUME 92.8 fl (82.0-101.0); MONOCYTE # 0.9 10^3/ul (0.3-0.9); NEUTROPHIL # 3.3 10^3/ul (1.6-7.5); NEUTROPHILS % 51.7 % (39.0-77.0); PLATELET COUNT 112 10^3/UL (140-415); POSITIVE DIFF @See below; RED BLOOD COUNT 2.65 10^6/ul (4.70-6.10); RED CELL DISTRIBUTION WIDTH 13.6 % (11.5-14.5)
[2017-08-04 09:27] LABS: WHITE BLOOD COUNT 6.5 10^3/ul (4.8-10.8)
[2017-08-04 09:50] LABS: ANION GAP 19 (8-16); BLOOD UREA NITROGEN 59 mg/dl (7-20); CALCIUM 7.6 mg/dl (8.4-10.2); CARBON DIOXIDE 22 mmol/L (21-31); CHLORIDE 102 mmol/L (97-110); CREATININE 10.75 mg/dl (0.61-1.24); GLUCOSE 91 mg/dl (70-220); POTASSIUM 3.8 mmol/L (3.5-5.1); SODIUM 139 mmol/L (135-144)
[2017-08-04 10:01] LABS: MAGNESIUM 1.7 mg/dl (1.7-2.5)
[2017-08-04 10:01] LABS: PHOSPHORUS 5.4 mg/dl (2.5-4.9)
[2017-08-04] MEDS: ATORVASTATIN 40 MG TAB PO (20:41)
[2017-08-04] MEDS: LORAZEPAM 2 MG INJ IV (22:43)
[2017-08-05] MEDS: PANTOPRAZOLE 40 MG INJ IV ×2 (05:50→17:29)
[2017-08-05] MEDS: HEPARIN 1000 UNITS/ML 10 ML INJ CATHETER (07:35)
[2017-08-05] MEDS: HEPARIN 5,000 UNIT/0.5 ML VIAL SC ×2 (09:00→21:09)
[2017-08-05] MEDS: ASPIRIN 81 MG TAB PO (09:22)
[2017-08-05] MEDS: BALSAM PERU/CASTOR OIL 60 GM TUBE TOP (09:22)
[2017-08-05] MEDS: FERROUS SULFATE 60 MG/ML 5ML CUP NGT ×3 (09:23→21:09)
[2017-08-05] MEDS: QUETIAPINE 25 MG TAB PO ×3 (09:23→21:11)
[2017-08-05] MEDS: VALPROIC ACID LIQUID CUP 250 MG/5 ML CUP NGT ×3 (09:23→21:09)
[2017-08-05] MEDS: LISINOPRIL 5 MG TAB PO (09:24)
[2017-08-05] MEDS: AMLODIPINE 5 MG TAB PO (09:25)
[2017-08-05 11:25] LABS: ADD MAN DIFF? NO
[2017-08-05 11:45] LABS: WHITE BLOOD COUNT 6.3 10^3/ul (4.8-10.8)
[2017-08-05 11:45] LABS: ABNORMAL IP MESSAGE 1; BASOPHILS % 0.5 % (0.0-2.0); EOSINOPHILS # 0.8 10^3/ul (0.0-0.5); EOSINOPHILS % 12.6 % (0.0-7.0); HEMATOCRIT 23.6 % (42.0-52.0); HEMOGLOBIN 7.9 g/dl (14.0-18.0); LYMPHOCYTES # 0.9 10^3/ul (0.8-2.9); LYMPHOCYTES % 14.4 % (15.0-51.0); MEAN CORPUSCULAR HGB CONC 33.5 g/dl (32.0-37.0); MEAN CORPUSCULAR VOLUME 92.5 fl (82.0-101.0); MEAN PLATELET VOLUME 11.3 fl (7.4-10.4); MONOCYTE # 1.1 10^3/ul (0.3-0.9); NEUTROPHIL # 3.4 10^3/ul (1.6-7.5); PLATELET COUNT 91 10^3/UL (140-415); POSITIVE DIFF @See below; RED BLOOD COUNT 2.55 10^6/ul (4.70-6.10); RED CELL DISTRIBUTION WIDTH 13.3 % (11.5-14.5)
[2017-08-05 12:12] LABS: PHOSPHORUS 4.3 mg/dl (2.5-4.9)
[2017-08-05 12:12] LABS: MAGNESIUM 1.6 mg/dl (1.7-2.5)
[2017-08-05 12:15] LABS: ANION GAP 15 (8-16); BLOOD UREA NITROGEN 41 mg/dl (7-20); CALCIUM 7.6 mg/dl (8.4-10.2); CARBON DIOXIDE 27 mmol/L (21-31); CHLORIDE 101 mmol/L (97-110); GLUCOSE 93 mg/dl (70-220); POTASSIUM 3.9 mmol/L (3.5-5.1); SODIUM 139 mmol/L (135-144)
[2017-08-05] MEDS: ATORVASTATIN 40 MG TAB PO (21:10)
[2017-08-05] MEDS: morphine 2 MG INJ IV (22:03)
[2017-08-05] MEDS: MAGNESIUM SULFATE 2 GM/50 ML 50 ML IVPB (22:19)
[2017-08-06] MEDS: PANTOPRAZOLE 40 MG INJ IV (05:52)
[2017-08-06 06:31] LABS: ADD MAN DIFF? NO
[2017-08-06 06:37] LABS: WHITE BLOOD COUNT 7.3 10^3/ul (4.8-10.8)
[2017-08-06 06:37] LABS: ABNORMAL IP MESSAGE 1; BASOPHILS % 0.4 % (0.0-2.0); EOSINOPHILS # 0.8 10^3/ul (0.0-0.5); HEMATOCRIT 21.4 % (42.0-52.0); LYMPHOCYTES # 1.3 10^3/ul (0.8-2.9); LYMPHOCYTES % 18.2 % (15.0-51.0); MEAN CORPUSCULAR HEMOGLOBIN 30.7 pg (29.0-33.0); MEAN CORPUSCULAR HGB CONC 32.7 g/dl (32.0-37.0); MEAN CORPUSCULAR VOLUME 93.9 fl (82.0-101.0); MEAN PLATELET VOLUME 11.1 fl (7.4-10.4); MONOCYTE # 1.4 10^3/ul (0.3-0.9); MONOCYTES % 19.1 % (0.0-11.0); NEUTROPHIL # 3.7 10^3/ul (1.6-7.5); NEUTROPHILS % 50.6 % (39.0-77.0); PLATELET COUNT 84 10^3/UL (140-415); POSITIVE DIFF @See below; RED BLOOD COUNT 2.28 10^6/ul (4.70-6.10); RED CELL DISTRIBUTION WIDTH 13.5 % (11.5-14.5)
[2017-08-06 07:14] LABS: PHOSPHORUS 4.3 mg/dl (2.5-4.9)
[2017-08-06 07:14] LABS: MAGNESIUM 2.1 mg/dl (1.7-2.5)
[2017-08-06 07:20] LABS: ANION GAP 17 (8-16); BLOOD UREA NITROGEN 56 mg/dl (7-20); CALCIUM 7.3 mg/dl (8.4-10.2); CARBON DIOXIDE 24 mmol/L (21-31); CHLORIDE 101 mmol/L (97-110); CREATININE 9.29 mg/dl (0.61-1.24); GLUCOSE 90 mg/dl (70-220); POTASSIUM 4.5 mmol/L (3.5-5.1); SODIUM 137 mmol/L (135-144)
[2017-08-06] MEDS ORDERED: NORepinephrine 8MG/250 ML (PMX 250 ML IV (08:00)
[2017-08-06] MEDS ORDERED: EPINEPHrine 4 MG in DEXTROSE 5% 246 ML IV (08:00)
[2017-08-06] MEDS ORDERED: MILRINONE LACTATE 2 MG in SOD CHLORIDE 0.9% 50 ML IV (08:00)
[2017-08-06] MEDS ORDERED: PHENYLephrine 20MG IN 250 ML 250 ML IV (08:00)
[2017-08-06] MEDS ORDERED: INSULIN HUMAN REGULAR 100 UNIT in SOD CHLORIDE 0.9% 99 ML IVPB (08:00)
[2017-08-06] MEDS ORDERED: HEPARIN (10000 UNITS/ML) 10,000 UNIT, MILRINONE LACTATE 10 MG in SOD CHLORIDE 0.9% 1,00... SC (08:00)
[2017-08-06] MEDS: ASPIRIN 600 MG SUPP PR (08:00)
[2017-08-06] MEDS: HEPARIN 5,000 UNIT/0.5 ML VIAL SC (09:00)
[2017-08-06] MEDS: VALPROIC ACID LIQUID CUP 250 MG/5 ML CUP NGT ×2 (09:43→21:56)
[2017-08-06] MEDS: FERROUS SULFATE 60 MG/ML 5ML CUP NGT ×2 (09:43→21:56)
[2017-08-06] MEDS: ASPIRIN 81 MG TAB PO (09:43)
[2017-08-06] MEDS: QUETIAPINE 25 MG TAB PO ×2 (09:45→21:00)
[2017-08-06] MEDS: AMLODIPINE 5 MG TAB PO (09:48)
[2017-08-06] MEDS: LISINOPRIL 5 MG TAB PO (09:48)
[2017-08-06] MEDS: BALSAM PERU/CASTOR OIL 60 GM TUBE TOP (09:49)
[2017-08-06] MEDS: morphine 2 MG INJ IV (12:34)
[2017-08-06] MEDS: PANTOPRAZOLE (EC) 40 MG TAB PO (18:00)
[2017-08-06] MEDS: ATORVASTATIN 40 MG TAB PO (21:00)
[2017-08-07] MEDS: morphine 2 MG INJ IV ×4 (01:47→23:45)
[2017-08-07] MEDS: PANTOPRAZOLE (EC) 40 MG TAB PO ×2 (05:35→17:46)
[2017-08-07 06:12] LABS: ADD MAN DIFF? NO
[2017-08-07 06:20] LABS: WHITE BLOOD COUNT 6.6 10^3/ul (4.8-10.8)
[2017-08-07 06:20] LABS: ABNORMAL IP MESSAGE 1; BASOPHILS % 0.6 % (0.0-2.0); EOSINOPHILS % 14.8 % (0.0-7.0); HEMATOCRIT 22.4 % (42.0-52.0); HEMOGLOBIN 7.4 g/dl (14.0-18.0); LYMPHOCYTES # 1.1 10^3/ul (0.8-2.9); MEAN CORPUSCULAR HEMOGLOBIN 31.1 pg (29.0-33.0); MEAN CORPUSCULAR VOLUME 94.1 fl (82.0-101.0); MEAN PLATELET VOLUME 10.7 fl (7.4-10.4); MONOCYTE # 1.2 10^3/ul (0.3-0.9); MONOCYTES % 17.8 % (0.0-11.0); NEUTROPHIL # 3.4 10^3/ul (1.6-7.5); NEUTROPHILS % 50.5 % (39.0-77.0); PLATELET COUNT 77 10^3/UL (140-415); POSITIVE DIFF @See below; RED BLOOD COUNT 2.38 10^6/ul (4.70-6.10); RED CELL DISTRIBUTION WIDTH 13.3 % (11.5-14.5)
[2017-08-07 06:45] LABS: ANION GAP 19 (8-16); BLOOD UREA NITROGEN 72 mg/dl (7-20); CALCIUM 7.8 mg/dl (8.4-10.2); CARBON DIOXIDE 24 mmol/L (21-31); CHLORIDE 99 mmol/L (97-110); CREATININE 10.63 mg/dl (0.61-1.24); GLUCOSE 83 mg/dl (70-220); POTASSIUM 4.9 mmol/L (3.5-5.1); SODIUM 137 mmol/L (135-144)
[2017-08-07 06:48] LABS: PHOSPHORUS 5.2 mg/dl (2.5-4.9)
[2017-08-07] MEDS: ASPIRIN 81 MG TAB PO (08:28)
[2017-08-07] MEDS: QUETIAPINE 25 MG TAB PO ×2 (08:28→21:16)
[2017-08-07] MEDS: FERROUS SULFATE 60 MG/ML 5ML CUP NGT ×2 (08:28→21:16)
[2017-08-07] MEDS: VALPROIC ACID LIQUID CUP 250 MG/5 ML CUP NGT ×2 (08:28→21:16)
[2017-08-07] MEDS: BALSAM PERU/CASTOR OIL 60 GM TUBE TOP (08:34)
[2017-08-07] MEDS: LISINOPRIL 5 MG TAB PO (09:00)
[2017-08-07] MEDS: AMLODIPINE 5 MG TAB PO (09:00)
[2017-08-07] MEDS: ATORVASTATIN 40 MG TAB PO (21:16)
[2017-08-07] MEDS: LORAZEPAM 2 MG INJ IV (23:08)
[2017-08-08] MEDS: PANTOPRAZOLE (EC) 40 MG TAB PO ×2 (06:00→17:25)
[2017-08-08 06:01] LABS: ABNORMAL IP MESSAGE 1; ADD MAN DIFF? NO; BASOPHILS % 0.7 % (0.0-2.0); EOSINOPHILS # 0.9 10^3/ul (0.0-0.5); EOSINOPHILS % 14.7 % (0.0-7.0); HEMATOCRIT 23.3 % (42.0-52.0); HEMOGLOBIN 7.8 g/dl (14.0-18.0); LYMPHOCYTES # 1.2 10^3/ul (0.8-2.9); LYMPHOCYTES % 19.7 % (15.0-51.0); MEAN CORPUSCULAR HEMOGLOBIN 31.2 pg (29.0-33.0); MEAN CORPUSCULAR HGB CONC 33.5 g/dl (32.0-37.0); MEAN CORPUSCULAR VOLUME 93.2 fl (82.0-101.0); MEAN PLATELET VOLUME 10.9 fl (7.4-10.4); MONOCYTE # 1.4 10^3/ul (0.3-0.9); MONOCYTES % 23.9 % (0.0-11.0); NEUTROPHIL # 2.4 10^3/ul (1.6-7.5); NEUTROPHILS % 40.2 % (39.0-77.0); PLATELET COUNT 78 10^3/UL (140-415); POSITIVE DIFF @See below; RED CELL DISTRIBUTION WIDTH 13.3 % (11.5-14.5)
[2017-08-08 06:31] LABS: ANION GAP 18 (8-16); BLOOD UREA NITROGEN 70 mg/dl (7-20); CALCIUM 7.8 mg/dl (8.4-10.2); CARBON DIOXIDE 23 mmol/L (21-31); CHLORIDE 101 mmol/L (97-110); CREATININE 9.26 mg/dl (0.61-1.24); GLUCOSE 77 mg/dl (70-220); POTASSIUM 5.3 mmol/L (3.5-5.1); SODIUM 137 mmol/L (135-144)
[2017-08-08 06:46] LABS: PHOSPHORUS 5.6 mg/dl (2.5-4.9)
[2017-08-08 06:46] LABS: MAGNESIUM 1.7 mg/dl (1.7-2.5)
[2017-08-08] MEDS: ASPIRIN 81 MG TAB PO (09:11)
[2017-08-08] MEDS: FERROUS SULFATE 60 MG/ML 5ML CUP NGT ×2 (09:11→20:47)
[2017-08-08] MEDS: VALPROIC ACID LIQUID CUP 250 MG/5 ML CUP NGT ×2 (09:11→20:46)
[2017-08-08] MEDS: LISINOPRIL 5 MG TAB PO (09:12)
[2017-08-08] MEDS: QUETIAPINE 25 MG TAB PO ×2 (09:12→20:46)
[2017-08-08] MEDS: BALSAM PERU/CASTOR OIL 60 GM TUBE TOP (09:12)
[2017-08-08] MEDS: AMLODIPINE 5 MG TAB PO (09:13)
[2017-08-08] MEDS: NA POLYST SULFON 15 GM/60 ML BTL PO (13:27)
[2017-08-08] MEDS: ATORVASTATIN 40 MG TAB PO (20:47)
[2017-08-08] MEDS: LORAZEPAM 2 MG INJ IV ×2 (20:53→22:30)
[2017-08-08] MEDS: HEPARIN 5,000 UNIT/0.5 ML VIAL SC (21:00)
[2017-08-08] MEDS: morphine 2 MG INJ IV (21:06)
[2017-08-08] MEDS: EPOETIN 3000 UNITS/1 ML INJ (ESRD) SC (22:44)
[2017-08-09] MEDS: PANTOPRAZOLE (EC) 40 MG TAB PO ×2 (05:52→18:06)
[2017-08-09 06:38] LABS: ADD MAN DIFF? NO
[2017-08-09 06:41] LABS: ABNORMAL IP MESSAGE 1; BASOPHILS % 0.5 % (0.0-2.0); EOSINOPHILS # 0.9 10^3/ul (0.0-0.5); EOSINOPHILS % 15.2 % (0.0-7.0); HEMATOCRIT 22.6 % (42.0-52.0); HEMOGLOBIN 7.5 g/dl (14.0-18.0); LYMPHOCYTES % 17.3 % (15.0-51.0); MEAN CORPUSCULAR HGB CONC 33.2 g/dl (32.0-37.0); MEAN CORPUSCULAR VOLUME 93.4 fl (82.0-101.0); MEAN PLATELET VOLUME 10.3 fl (7.4-10.4); MONOCYTE # 1.3 10^3/ul (0.3-0.9); MONOCYTES % 23.9 % (0.0-11.0); NEUTROPHIL # 2.4 10^3/ul (1.6-7.5); NEUTROPHILS % 42.7 % (39.0-77.0); POSITIVE DIFF @See below; RED BLOOD COUNT 2.42 10^6/ul (4.70-6.10); RED CELL DISTRIBUTION WIDTH 13.3 % (11.5-14.5)
[2017-08-09 06:41] LABS: WHITE BLOOD COUNT 5.6 10^3/ul (4.8-10.8)
[2017-08-09 06:46] LABS: PLATELET COUNT 76 10^3/UL (140-415)
[2017-08-09 07:12] LABS: MAGNESIUM 1.6 mg/dl (1.7-2.5)
[2017-08-09 07:15] LABS: ANION GAP 21 (8-16); BLOOD UREA NITROGEN 89 mg/dl (7-20); CARBON DIOXIDE 23 mmol/L (21-31); CHLORIDE 101 mmol/L (97-110); CREATININE 10.68 mg/dl (0.61-1.24); GLUCOSE 70 mg/dl (70-220); POTASSIUM 5.4 mmol/L (3.5-5.1); SODIUM 140 mmol/L (135-144)
[2017-08-09] MEDS: HEPARIN 5,000 UNIT/0.5 ML VIAL SC ×2 (09:00→20:52)
[2017-08-09] MEDS: ASPIRIN 81 MG TAB PO (10:56)
[2017-08-09] MEDS: AMLODIPINE 5 MG TAB PO (10:57)
[2017-08-09] MEDS: FERROUS SULFATE 60 MG/ML 5ML CUP NGT ×2 (10:58→20:49)
[2017-08-09] MEDS: QUETIAPINE 25 MG TAB PO ×2 (10:58→20:59)
[2017-08-09] MEDS: LISINOPRIL 5 MG TAB PO (10:58)
[2017-08-09] MEDS: VALPROIC ACID LIQUID CUP 250 MG/5 ML CUP NGT ×2 (10:59→20:50)
[2017-08-09] MEDS: BALSAM PERU/CASTOR OIL 60 GM TUBE TOP (11:00)
[2017-08-09] MEDS: MAGNESIUM SULFATE 2 GM/50 ML 50 ML IVPB (14:00)
[2017-08-09] MEDS: LORAZEPAM 2 MG INJ IV ×2 (14:28→22:16)
[2017-08-09] MEDS: ATORVASTATIN 40 MG TAB PO (20:43)
[2017-08-09] MEDS: SOD CHLORIDE 0.9% 250 ML IV* ×2 (21:14)
[2017-08-10] MEDS: PANTOPRAZOLE (EC) 40 MG TAB PO ×2 (02:51→19:00)
[2017-08-10] MEDS ORDERED: HEPARIN 1000 UNITS/NS (A-LINE) 0 ML (06:42)
[2017-08-10] MEDS ORDERED: THROMBIN 5000 UNIT VIAL (06:42)
[2017-08-10] MEDS ORDERED: GELATIN SIZE 100 SPONGE (06:42)
[2017-08-10] MEDS ORDERED: EPINEPHrine 4 MG in DEXTROSE 5% 246 ML IV (07:30)
[2017-08-10] MEDS ORDERED: PHENYLephrine 20MG IN 250 ML 250 ML IV (07:30)
[2017-08-10] MEDS ORDERED: INSULIN HUMAN REGULAR 100 UNIT in SOD CHLORIDE 0.9% 99 ML IV (07:30)
[2017-08-10] MEDS ORDERED: MIDAZOLAM 5 ML ×2 (07:44→10:06)
[2017-08-10] MEDS ORDERED: PHENYLephrine (100 MCG/ML) 5ML SYG ×4 (07:50→11:39)
[2017-08-10] MEDS ORDERED: ALBUMIN HUMAN 25% 400 ML (07:53)
[2017-08-10] MEDS ORDERED: AMINOCAPROIC ACID 5 GM INJ ×4 (07:53→11:42)
[2017-08-10] MEDS ORDERED: CA CHLORIDE 10% 10 ML SYRINGE (07:54)
[2017-08-10] MEDS ORDERED: HEPARIN 1000 UNITS/ML 10 ML INJ ×2 (07:54→10:08)
[2017-08-10] MEDS ORDERED: LIDOCAINE 100 MG SYRINGE (07:55)
[2017-08-10] MEDS ORDERED: POTASSIUM CHLORIDE 40 MEQ INJ (07:55)
[2017-08-10] MEDS ORDERED: MAGNESIUM SULFATE (MG) 50% 10 ML INJ (07:56)
[2017-08-10] MEDS ORDERED: MANNITOL 20% 500 ML IV (07:56)
[2017-08-10] MEDS ORDERED: PHENYLephrine 10 MG INJ (07:57)
[2017-08-10] MEDS ORDERED: NA BICARBONATE 8.4% 50 ML SYG (07:59)
[2017-08-10] MEDS ORDERED: CEFAZOLIN 1 GM INJ ×2 (08:42→11:42)
[2017-08-10] MEDS: FERROUS SULFATE 60 MG/ML 5ML CUP NGT ×2 (09:00→21:00)
[2017-08-10] MEDS: HEPARIN 5,000 UNIT/0.5 ML VIAL SC ×2 (09:00→21:00)
[2017-08-10] MEDS: BALSAM PERU/CASTOR OIL 60 GM TUBE TOP (09:00)
[2017-08-10] MEDS ORDERED: FUROSEMIDE 10 ML ×2 (09:40→12:37)
[2017-08-10] MEDS: HEPARIN 1000 UNITS/ML 10 ML INJ (09:49)
[2017-08-10] MEDS: PAPAVERINE 60 MG INJ (09:50)
[2017-08-10] MEDS: VANCOMYCIN 1 GM INJ (09:51)
[2017-08-10 11:36] LABS: TYPE AND SCREEN 1
[2017-08-10] MEDS ORDERED: PROTAMINE 250 MG INJ (11:42)
[2017-08-10] MEDS ORDERED: AMIODARONE 150 MG INJ (12:09)
[2017-08-10 12:25] LABS: IMMEDIATE SPIN CROSSMATCH 1
[2017-08-10 13:34] LABS: IMMEDIATE SPIN CROSSMATCH 1
[2017-08-10] MEDS ORDERED: ETOMIDATE 20 MG INJ (14:29)
[2017-08-10] MEDS ORDERED: ROCURONIUM 50 MG INJ (14:30)
[2017-08-10] MEDS ORDERED: LIDOCAINE 2% (SDV) 5 ML INJ (14:30)
[2017-08-10 15:23] LABS: ABNORMAL IP MESSAGE 1; HEMATOCRIT 27.7 % (42.0-52.0); HEMOGLOBIN 9.6 g/dl (14.0-18.0); MEAN CORPUSCULAR HEMOGLOBIN 30.9 pg (29.0-33.0); MEAN CORPUSCULAR HGB CONC 34.7 g/dl (32.0-37.0); MEAN CORPUSCULAR VOLUME 89.1 fl (82.0-101.0); PLATELET COUNT 111 10^3/UL (140-415); POSITIVE DIFF @See below; RED BLOOD COUNT 3.11 10^6/ul (4.70-6.10); RED CELL DISTRIBUTION WIDTH 14.8 % (11.5-14.5)
[2017-08-10 15:23] LABS: WHITE BLOOD COUNT 11.5 10^3/ul (4.8-10.8)
[2017-08-10 15:25] LABS: ADD MAN DIFF? YES
[2017-08-10] MEDS ORDERED: MIDAZOLAM 1 MG/ML 2 ML INJ IV (15:30)
[2017-08-10] MEDS ORDERED: NITROGLYCERIN 50 MG/D5W (PMX) 250 ML IV (15:30)
[2017-08-10] MEDS ORDERED: LORAZEPAM 2 MG INJ IV (15:30)
[2017-08-10] MEDS ORDERED: METOCLOPRAMIDE 10 MG INJ IV (15:30)
[2017-08-10] MEDS ORDERED: DIPHENHYDRAMINE 50 MG INJ IV (15:30)
[2017-08-10] MEDS ORDERED: morphine (1 MG/ML) 10ML SYRINGE IV ×3 (15:30)
[2017-08-10] MEDS ORDERED: ONDANSETRON 4 MG INJ IV (15:30)
[2017-08-10 15:40] LABS: INR 1.33; PROTIME 16.7 Sec (11.9-14.9); PT RATIO 1.3
[2017-08-10 15:41] LABS: PARTIAL THROMBOPLASTIN TIME 37.2 Sec (25.0-35.0)
[2017-08-10 15:43] LABS: ALANINE AMINOTRANSFERASE 33 IU/L (13-69); ALBUMIN 3.4 g/dl (3.3-4.9); ALBUMIN/GLOBULIN RATIO 1.13; ALKALINE PHOSPHATASE 60 IU/L (42-121); ANION GAP 19 (8-16); ASPARTATE AMINO TRANSFERASE 41 IU/L (15-46); BILIRUBIN,INDIRECT 0.3 mg/dl (0-1.1); BILIRUBIN,TOTAL 0.3 mg/dl (0.2-1.3); BLOOD UREA NITROGEN 56 mg/dl (7-20); CALCIUM 8.4 mg/dl (8.4-10.2); CARBON DIOXIDE 26 mmol/L (21-31); CHLORIDE 106 mmol/L (97-110); CREATININE 7.18 mg/dl (0.61-1.24); GLUCOSE 108 mg/dl (70-220); POTASSIUM 4.9 mmol/L (3.5-5.1); SODIUM 146 mmol/L (135-144); TOTAL PROTEIN 6.4 g/dl (6.1-8.1)
[2017-08-10] MEDS: morphine 2 MG INJ IV ×3 (15:48→22:46)
[2017-08-10 15:52] LABS: ANISOCYTOSIS 1+ (0-0); BAND NEUTROPHILS #M 1.4 10^3/ul (0.0-0.6); BAND NEUTROPHILS % (M) 13 % (0-4); EOSINOPHILS % (M) 7 % (0-7); LYMPHOCYTES #M 0.8 10^3/ul (0.8-2.9); LYMPHOCYTES % (M) 7 % (15-51); METAMYELOCYTES #M 0.1 10^3/ul (0.0-0.0); METAMYELOCYTES %M 1 % (0-0); MICROCYTOSIS 1+ (0-0); MONOCYTE #M 1.3 10^3/ul (0.3-0.9); MONOCYTES % (M) 12 % (0-11); PLATELET ESTIMATE NORMAL; POIKILOCYTOSIS 1+ (0-0); POLYCHROMASIA 1+ (0-0); SEG NEUT #M 6.9 10^3/ul (1.7-7.5); SEGMENTED NEUTROPHILS (M) % 59 % (39-77); SMUDGE%M 16 % (0-0)
[2017-08-10 16:15] LABS: AADO2 Arterial 365.3 mmHg (7.0-24.0); Arterial Blood Gas Oxygen Sat 95.9 mmHG (95.0-98.0); Arterial COHb 0.3 % (0.0-3.0); Arterial Fraction of Oxyhgb 95.3 % (93.0-99.0); Arterial MetHb 0.3 % (0.0-1.5); Arterial Total Hemglobin 10.9 g/dl (12.0-18.0); Arterial pCO2 39.9 mmhg (35-45); MODE VENT - AC; Site A-Line
[2017-08-10] MEDS: DOPamine-D5W 1.6 MG/ML 250 ML IV (16:16)
[2017-08-10] MEDS: PHENYLephrine 20MG IN 250 ML 250 ML IV (16:17)
[2017-08-10 16:33] LABS: MAGNESIUM 2.4 mg/dl (1.7-2.5)
[2017-08-10 16:37] LABS: IMMEDIATE SPIN CROSSMATCH 1 10
[2017-08-10] MEDS: ASPIRIN 81 MG TAB PO (17:00)
[2017-08-10] MEDS: VALPROIC ACID LIQUID CUP 250 MG/5 ML CUP NGT ×2 (17:00→21:00)
[2017-08-10] MEDS: AMLODIPINE 5 MG TAB PO (17:00)
[2017-08-10] MEDS ORDERED: HYDROmorphONE 0.5 MG/0.5 ML SYG IV (17:00)
[2017-08-10] MEDS: LISINOPRIL 5 MG TAB PO (17:00)
[2017-08-10] MEDS: QUETIAPINE 25 MG TAB PO ×2 (17:00→22:16)
[2017-08-10] MEDS: HYDROmorphONE 0.5 MG/0.5 ML SYG IV ×2 (17:22→20:19)
[2017-08-10] MEDS: EPOETIN 3000 UNITS/1 ML INJ (ESRD) SC (19:00)
[2017-08-10] MEDS: NITROGLYCERIN 50 MG/D5W (PMX) 250 ML IV (19:15)
[2017-08-10 19:35] LABS: AADO2 Arterial 165.5 mmHg (7.0-24.0); Arterial Base Excess -1.3 mmol/L (-3.0-3); Arterial Blood Gas Oxygen Sat 94.1 mmHG (95.0-98.0); Arterial COHb 0.3 % (0.0-3.0); Arterial Fraction of Oxyhgb 93.6 % (93.0-99.0); Arterial HCO3 23.4 mmol/L (22.0-26.0); Arterial MetHb 0.2 % (0.0-1.5); Arterial Total Hemglobin 10.3 g/dl (12.0-18.0); Arterial pCO2 39.2 mmhg (35-45); Blood Gas PS 10; MODE VENT - CPAP; Site A-Line
[2017-08-10] MEDS: LORAZEPAM 2 MG INJ IV (20:45)
[2017-08-10] MEDS ORDERED: ALBUMIN HUMAN 5% 250 ML IV (21:30)
[2017-08-10] MEDS ORDERED: POTASSIUM CHLORIDE 50 ML IVPB (21:30)
[2017-08-10] MEDS ORDERED: MAGNESIUM SULFATE 1 GM/D5W 100 ML IVPB (21:30)
[2017-08-10] MEDS: ATORVASTATIN 40 MG TAB PO (21:38)
[2017-08-10] MEDS: ACETAMINOPHEN 650MG/20.3ML CUP PO (21:48)
[2017-08-10 22:43] LABS: ADD MAN DIFF? NO
[2017-08-10 22:44] LABS: ABNORMAL IP MESSAGE 1; BASOPHILS % 0.2 % (0.0-2.0); EOSINOPHILS # 0.1 10^3/ul (0.0-0.5); EOSINOPHILS % 0.5 % (0.0-7.0); HEMATOCRIT 25.8 % (42.0-52.0); HEMOGLOBIN 8.8 g/dl (14.0-18.0); LYMPHOCYTES # 0.4 10^3/ul (0.8-2.9); LYMPHOCYTES % 3.3 % (15.0-51.0); MEAN CORPUSCULAR HEMOGLOBIN 30.4 pg (29.0-33.0); MEAN CORPUSCULAR HGB CONC 34.1 g/dl (32.0-37.0); MEAN CORPUSCULAR VOLUME 89.3 fl (82.0-101.0); MEAN PLATELET VOLUME 10.3 fl (7.4-10.4); MONOCYTE # 1.5 10^3/ul (0.3-0.9); MONOCYTES % 13.9 % (0.0-11.0); NEUTROPHIL # 8.7 10^3/ul (1.6-7.5); NEUTROPHILS % 81.6 % (39.0-77.0); PLATELET COUNT 81 10^3/UL (140-415); POSITIVE DIFF @See below; RED BLOOD COUNT 2.89 10^6/ul (4.70-6.10); RED CELL DISTRIBUTION WIDTH 15.5 % (11.5-14.5)
[2017-08-10 22:44] LABS: WHITE BLOOD COUNT 10.7 10^3/ul (4.8-10.8)
[2017-08-10 23:14] LABS: ANION GAP 20 (8-16); BLOOD UREA NITROGEN 60 mg/dl (7-20); CALCIUM 8.8 mg/dl (8.4-10.2); CARBON DIOXIDE 26 mmol/L (21-31); CHLORIDE 103 mmol/L (97-110); CREATININE 7.87 mg/dl (0.61-1.24); GLUCOSE 114 mg/dl (70-220); MAGNESIUM 2.2 mg/dl (1.7-2.5); PHOSPHORUS 5.6 mg/dl (2.5-4.9); POTASSIUM 5.1 mmol/L (3.5-5.1); SODIUM 144 mmol/L (135-144)
[2017-08-10] MEDS: POTASSIUM CHLORIDE 40 MEQ, CALCIUM CHLORIDE 10% 1 GM in DEXTROSE 5%-0.225% NACL 970 ML IV (23:23)
[2017-08-11] MEDS: morphine 2 MG INJ IV ×6 (01:30→22:09)
[2017-08-11] MEDS: ALPRAZOLAM 0.25 MG TAB PO (04:28)
[2017-08-11] MEDS: PANTOPRAZOLE (EC) 40 MG TAB PO ×2 (05:32→17:51)
[2017-08-11 05:42] LABS: ADD MAN DIFF? NO
[2017-08-11 05:51] LABS: ABNORMAL IP MESSAGE 1; BASOPHILS % 0.3 % (0.0-2.0); HEMATOCRIT 23.5 % (42.0-52.0); LYMPHOCYTES # 0.5 10^3/ul (0.8-2.9); LYMPHOCYTES % 4.5 % (15.0-51.0); MEAN CORPUSCULAR HEMOGLOBIN 30.7 pg (29.0-33.0); MEAN PLATELET VOLUME 10.9 fl (7.4-10.4); MONOCYTE # 1.5 10^3/ul (0.3-0.9); MONOCYTES % 14.6 % (0.0-11.0); NEUTROPHIL # 8.3 10^3/ul (1.6-7.5); NEUTROPHILS % 80.2 % (39.0-77.0); PLATELET COUNT 70 10^3/UL (140-415); POSITIVE DIFF @See below; RED BLOOD COUNT 2.61 10^6/ul (4.70-6.10); RED CELL DISTRIBUTION WIDTH 15.7 % (11.5-14.5)
[2017-08-11 05:51] LABS: WHITE BLOOD COUNT 10.4 10^3/ul (4.8-10.8)
[2017-08-11] MEDS: HYDROmorphONE 0.5 MG/0.5 ML SYG IV ×7 (06:09→22:58)
[2017-08-11 06:11] LABS: INR 1.13; PARTIAL THROMBOPLASTIN TIME 38.5 Sec (25.0-35.0); PROTIME 14.7 Sec (11.9-14.9); PT RATIO 1.1
[2017-08-11 06:42] LABS: ANION GAP 22 (8-16); BLOOD UREA NITROGEN 61 mg/dl (7-20); CALCIUM 8.6 mg/dl (8.4-10.2); CARBON DIOXIDE 23 mmol/L (21-31); CHLORIDE 99 mmol/L (97-110); CREATININE 8.08 mg/dl (0.61-1.24); GLUCOSE 109 mg/dl (70-220); MAGNESIUM 2.1 mg/dl (1.7-2.5); POTASSIUM 5.6 mmol/L (3.5-5.1); SODIUM 138 mmol/L (135-144)
[2017-08-11] MEDS: QUETIAPINE 25 MG TAB PO ×2 (08:22→20:59)
[2017-08-11] MEDS: FERROUS SULFATE 60 MG/ML 5ML CUP NGT ×2 (08:22→20:58)
[2017-08-11] MEDS: ASPIRIN 81 MG TAB PO (08:22)
[2017-08-11] MEDS: VALPROIC ACID LIQUID CUP 250 MG/5 ML CUP NGT ×2 (08:22→20:58)
[2017-08-11] MEDS: LISINOPRIL 5 MG TAB PO (08:56)
[2017-08-11] MEDS: HEPARIN 5,000 UNIT/0.5 ML VIAL SC (09:00)
[2017-08-11] MEDS: BALSAM PERU/CASTOR OIL 60 GM TUBE TOP (09:00)
[2017-08-11] MEDS: AMLODIPINE 5 MG TAB PO (09:06)
[2017-08-11] MEDS: ACETAMINOPHEN 650MG/20.3ML CUP PO (09:42)
[2017-08-11] MEDS: ALTEPLASE (CATHFLO) 2 MG INJ CATHETER ×2 (12:12→12:13)
[2017-08-11] MEDS ORDERED: ALBUMIN HUMAN 25% 100 ML (13:50)
[2017-08-11] MEDS: ALBUMIN HUMAN 25% 100 ML IV (13:59)
[2017-08-11 17:15] LABS: HEMATOCRIT 22.1 % (42.0-52.0)
[2017-08-11] MEDS ORDERED: MAGNESIUM SULFATE 2 GM/50 ML 50 ML (19:50)
[2017-08-11] MEDS: MAGNESIUM SULFATE 2 GM/50 ML 50 ML IVPB (20:02)
[2017-08-11] MEDS: LORAZEPAM 2 MG INJ IV (20:06)
[2017-08-11] MEDS: ATORVASTATIN 40 MG TAB PO (20:59)
[2017-08-12] MEDS: morphine 2 MG INJ IV ×6 (00:16→21:33)
[2017-08-12] MEDS: LORAZEPAM 2 MG INJ IV (01:45)
[2017-08-12] MEDS: ACETAMINOPHEN 650MG/20.3ML CUP PO (01:45)
[2017-08-12] MEDS: PANTOPRAZOLE (EC) 40 MG TAB PO ×2 (05:27→18:17)
[2017-08-12 06:02] LABS: WHITE BLOOD COUNT 9.7 10^3/ul (4.8-10.8)
[2017-08-12 06:02] LABS: ABNORMAL IP MESSAGE 1; HEMATOCRIT 19.8 % (42.0-52.0); MEAN CORPUSCULAR HEMOGLOBIN 30.8 pg (29.0-33.0); MEAN CORPUSCULAR HGB CONC 33.3 g/dl (32.0-37.0); MEAN CORPUSCULAR VOLUME 92.5 fl (82.0-101.0); PLATELET COUNT 47 10^3/UL (140-415); POSITIVE DIFF @See below; RED BLOOD COUNT 2.14 10^6/ul (4.70-6.10); RED CELL DISTRIBUTION WIDTH 15.7 % (11.5-14.5)
[2017-08-12 06:28] LABS: ANION GAP 19 (8-16); BLOOD UREA NITROGEN 47 mg/dl (7-20); CALCIUM 8.3 mg/dl (8.4-10.2); CARBON DIOXIDE 26 mmol/L (21-31); CHLORIDE 96 mmol/L (97-110); CREATININE 6.91 mg/dl (0.61-1.24); GLUCOSE 85 mg/dl (70-220); POTASSIUM 4.5 mmol/L (3.5-5.1); SODIUM 136 mmol/L (135-144)
[2017-08-12 06:38] LABS: HEMOGLOBIN 6.6 g/dl (14.0-18.0)
[2017-08-12 06:39] LABS: ADD MAN DIFF? YES
[2017-08-12] MEDS ORDERED: EPINEPHrine 0.1 MG/ML SYG (08:19)
[2017-08-12] MEDS ORDERED: RACEPINEPHRINE 2.25%(NEB) 0.5 ML AMP (08:20)
[2017-08-12 08:45] LABS: ANISOCYTOSIS 1+ (0-0); BAND NEUTROPHILS #M 1.5 10^3/ul (0.0-0.6); BAND NEUTROPHILS % (M) 16 % (0-4); BASOPHILS % (M) 1 % (0-2); EOSINOPHILS % (M) 7 % (0-7); LYMPHOCYTES #M 0.9 10^3/ul (0.8-2.9); LYMPHOCYTES % (M) 10 % (15-51); MICROCYTOSIS 1+ (0-0); MONOCYTE #M 1.2 10^3/ul (0.3-0.9); MONOCYTES % (M) 13 % (0-11); PLATELET ESTIMATE SIG DECREASED; POIKILOCYTOSIS 1+ (0-0); POLYCHROMASIA 3+ (0-0); SEG NEUT #M 5.3 10^3/ul (1.7-7.5); SEGMENTED NEUTROPHILS (M) % 53 % (39-77); SMUDGE%M 1 % (0-0)
[2017-08-12 08:52] LABS: AADO2 Arterial 156.1 mmHg (7.0-24.0); Allen Test ACCEPTAB; Arterial Base Excess -3.5 mmol/L (-3.0-3); Arterial Blood Gas Oxygen Sat 87.6 mmHG (95.0-98.0); Arterial COHb 0.3 % (0.0-3.0); Arterial Fraction of Oxyhgb 87.3 % (93.0-99.0); Arterial HCO3 21.4 mmol/L (22.0-26.0); Arterial MetHb 0 % (0.0-1.5); Arterial Total Hemglobin 8.2 g/dl (12.0-18.0); MODE NASAL CANNULA; Site Right Radial
[2017-08-12] MEDS: ASPIRIN 325 MG TAB PO (09:00)
[2017-08-12] MEDS: BALSAM PERU/CASTOR OIL 60 GM TUBE TOP (09:00)
[2017-08-12] MEDS: QUETIAPINE 25 MG TAB PO ×2 (09:38→21:00)
[2017-08-12] MEDS: LISINOPRIL 5 MG TAB PO (09:38)
[2017-08-12] MEDS: FERROUS SULFATE 60 MG/ML 5ML CUP NGT ×2 (09:38→20:59)
[2017-08-12] MEDS: VALPROIC ACID LIQUID CUP 250 MG/5 ML CUP NGT ×2 (09:44→20:59)
[2017-08-12 11:09] LABS: IMMEDIATE SPIN CROSSMATCH 1 2
[2017-08-12] MEDS: EPOETIN 3000 UNITS/1 ML INJ (ESRD) SC (18:17)
[2017-08-12] MEDS: ATORVASTATIN 40 MG TAB PO (20:59)
[2017-08-13] MEDS: morphine 2 MG INJ IV ×6 (00:06→21:54)
[2017-08-13] MEDS: HYDROmorphONE 0.5 MG/0.5 ML SYG IV ×2 (02:47→19:49)
[2017-08-13 05:34] LABS: ADD MAN DIFF? NO
[2017-08-13 05:45] LABS: WHITE BLOOD COUNT 10.1 10^3/ul (4.8-10.8)
[2017-08-13 05:45] LABS: ABNORMAL IP MESSAGE 1; BASOPHILS % 0.4 % (0.0-2.0); EOSINOPHILS # 0.2 10^3/ul (0.0-0.5); EOSINOPHILS % 1.8 % (0.0-7.0); HEMATOCRIT 24.1 % (42.0-52.0); LYMPHOCYTES # 0.4 10^3/ul (0.8-2.9); LYMPHOCYTES % 4.1 % (15.0-51.0); MEAN CORPUSCULAR HEMOGLOBIN 30.5 pg (29.0-33.0); MEAN CORPUSCULAR HGB CONC 33.2 g/dl (32.0-37.0); MEAN PLATELET VOLUME 10.4 fl (7.4-10.4); MONOCYTE # 1.9 10^3/ul (0.3-0.9); MONOCYTES % 18.3 % (0.0-11.0); NEUTROPHIL # 7.6 10^3/ul (1.6-7.5); NEUTROPHILS % 74.6 % (39.0-77.0); PLATELET COUNT 58 10^3/UL (140-415); POSITIVE DIFF @See below; RED BLOOD COUNT 2.62 10^6/ul (4.70-6.10); RED CELL DISTRIBUTION WIDTH 15.4 % (11.5-14.5)
[2017-08-13 05:58] LABS: ANION GAP 21 (8-16); BLOOD UREA NITROGEN 66 mg/dl (7-20); CALCIUM 8.7 mg/dl (8.4-10.2); CARBON DIOXIDE 24 mmol/L (21-31); CHLORIDE 96 mmol/L (97-110); CREATININE 8.64 mg/dl (0.61-1.24); GLUCOSE 80 mg/dl (70-220); POTASSIUM 5.1 mmol/L (3.5-5.1); SODIUM 136 mmol/L (135-144)
[2017-08-13] MEDS: PANTOPRAZOLE (EC) 40 MG TAB PO ×2 (05:59→17:50)
[2017-08-13 08:42] LABS: AADO2 Arterial 117.8 mmHg (7.0-24.0); Arterial Base Excess -3.4 mmol/L (-3.0-3); Arterial Blood Gas Oxygen Sat 92.7 mmHG (95.0-98.0); Arterial COHb 1.1 % (0.0-3.0); Arterial Fraction of Oxyhgb 91.5 % (93.0-99.0); Arterial HCO3 21.9 mmol/L (22.0-26.0); Arterial MetHb 0.2 % (0.0-1.5); Arterial Total Hemglobin 8.4 g/dl (12.0-18.0); Arterial pCO2 40.3 mmhg (35-45)
[2017-08-13] MEDS: QUETIAPINE 25 MG TAB PO ×2 (08:55→21:42)
[2017-08-13] MEDS: FERROUS SULFATE 60 MG/ML 5ML CUP NGT (08:56)
[2017-08-13] MEDS: BALSAM PERU/CASTOR OIL 60 GM TUBE TOP (08:56)
[2017-08-13] MEDS: LISINOPRIL 5 MG TAB PO (08:56)
[2017-08-13] MEDS: VALPROIC ACID LIQUID CUP 250 MG/5 ML CUP NGT (08:56)
[2017-08-13 09:16] LABS: Allen Test ACCEPTAB; MODE NASAL CANNULA; Site Right Radial
[2017-08-13] MEDS: ACETYLCYSTEINE 20% 4 ML VIAL NEB ×3 (09:25→20:00)
[2017-08-13] MEDS: ASPIRIN 325 MG TAB PO (13:20)
[2017-08-13] MEDS: ALBUTEROL/IPRATROPIUM (NEB) 3 ML AMP HHN ×2 (13:34→19:53)
[2017-08-13] MEDS: FERROUS SULFATE (EC) 325 MG TAB PO (21:41)
[2017-08-13] MEDS: ACETAMINOPHEN 650MG/20.3ML CUP PO (21:42)
[2017-08-13] MEDS: VALPROIC ACID 250 MG CAP PO (21:45)
[2017-08-13] MEDS: ATORVASTATIN 40 MG TAB PO (21:46)
[2017-08-13] MEDS: CEFEPIME 1GM/50 ML (PMX) 50 ML IVPB (22:19)
[2017-08-14] MEDS: morphine 2 MG INJ IV ×7 (00:49→23:37)
[2017-08-14] MEDS: ALBUTEROL/IPRATROPIUM (NEB) 3 ML AMP HHN ×4 (02:41→20:23)
[2017-08-14] MEDS: ACETYLCYSTEINE 20% 4 ML VIAL NEB ×4 (02:52→20:00)
[2017-08-14] MEDS: HYDROmorphONE 0.5 MG/0.5 ML SYG IV ×3 (03:03→17:57)
[2017-08-14 06:23] LABS: ADD MAN DIFF? NO
[2017-08-14] MEDS: PANTOPRAZOLE (EC) 40 MG TAB PO ×2 (06:30→17:59)
[2017-08-14 06:33] LABS: ABNORMAL IP MESSAGE 1; BASOPHILS % 0.4 % (0.0-2.0); EOSINOPHILS # 0.3 10^3/ul (0.0-0.5); EOSINOPHILS % 4.5 % (0.0-7.0); HEMATOCRIT 23.7 % (42.0-52.0); HEMOGLOBIN 7.7 g/dl (14.0-18.0); LYMPHOCYTES # 0.5 10^3/ul (0.8-2.9); LYMPHOCYTES % 7.2 % (15.0-51.0); MEAN CORPUSCULAR HEMOGLOBIN 30.8 pg (29.0-33.0); MEAN CORPUSCULAR HGB CONC 32.5 g/dl (32.0-37.0); MEAN CORPUSCULAR VOLUME 94.8 fl (82.0-101.0); MEAN PLATELET VOLUME 10.7 fl (7.4-10.4); MONOCYTE # 1.9 10^3/ul (0.3-0.9); MONOCYTES % 25.3 % (0.0-11.0); NEUTROPHIL # 4.7 10^3/ul (1.6-7.5); NEUTROPHILS % 62.1 % (39.0-77.0); PLATELET COUNT 62 10^3/UL (140-415); POSITIVE DIFF @See below; RED CELL DISTRIBUTION WIDTH 15.2 % (11.5-14.5)
[2017-08-14 06:33] LABS: WHITE BLOOD COUNT 7.6 10^3/ul (4.8-10.8)
[2017-08-14 07:01] LABS: ANION GAP 18 (8-16); BLOOD UREA NITROGEN 58 mg/dl (7-20); CALCIUM 8.4 mg/dl (8.4-10.2); CARBON DIOXIDE 27 mmol/L (21-31); CHLORIDE 96 mmol/L (97-110); GLUCOSE 80 mg/dl (70-220); SODIUM 137 mmol/L (135-144)
[2017-08-14] MEDS: QUETIAPINE 25 MG TAB PO ×2 (08:14→19:54)
[2017-08-14] MEDS: VALPROIC ACID 250 MG CAP PO ×2 (08:14→19:53)
[2017-08-14] MEDS: ASPIRIN 325 MG TAB PO (08:15)
[2017-08-14] MEDS: FERROUS SULFATE (EC) 325 MG TAB PO ×3 (08:15→20:04)
[2017-08-14] MEDS: BALSAM PERU/CASTOR OIL 60 GM TUBE TOP (08:15)
[2017-08-14] MEDS: LISINOPRIL 5 MG TAB PO (09:54)
[2017-08-14] MEDS: EPOETIN 3000 UNITS/1 ML INJ (ESRD) SC (17:59)
[2017-08-14] MEDS: ATORVASTATIN 40 MG TAB PO (19:53)
[2017-08-14] MEDS: CEFEPIME 1GM/50 ML (PMX) 50 ML IVPB (19:55)
[2017-08-14] MEDS: ALPRAZOLAM 0.25 MG TAB PO (22:59)
[2017-08-15] MEDS: ALBUTEROL/IPRATROPIUM (NEB) 3 ML AMP HHN ×4 (02:00→20:25)
[2017-08-15] MEDS: ACETYLCYSTEINE 20% 4 ML VIAL NEB ×4 (02:00→20:00)
[2017-08-15] MEDS: morphine 2 MG INJ IV ×3 (04:01→20:10)
[2017-08-15] MEDS: PANTOPRAZOLE (EC) 40 MG TAB PO ×2 (04:03→18:04)
[2017-08-15] MEDS: HYDROmorphONE 0.5 MG/0.5 ML SYG IV ×3 (05:25→18:04)
[2017-08-15 06:40] LABS: WHITE BLOOD COUNT 6.1 10^3/ul (4.8-10.8)
[2017-08-15 06:40] LABS: ABNORMAL IP MESSAGE 1; HEMATOCRIT 24.7 % (42.0-52.0); HEMOGLOBIN 7.9 g/dl (14.0-18.0); MEAN CORPUSCULAR HEMOGLOBIN 30.6 pg (29.0-33.0); MEAN CORPUSCULAR VOLUME 95.7 fl (82.0-101.0); MEAN PLATELET VOLUME 10.1 fl (7.4-10.4); PLATELET COUNT 82 10^3/UL (140-415); POSITIVE DIFF @See below; RED BLOOD COUNT 2.58 10^6/ul (4.70-6.10); RED CELL DISTRIBUTION WIDTH 14.9 % (11.5-14.5)
[2017-08-15 06:49] LABS: ADD MAN DIFF? YES
[2017-08-15 07:21] LABS: ANION GAP 17 (8-16); BLOOD UREA NITROGEN 52 mg/dl (7-20); CALCIUM 8.1 mg/dl (8.4-10.2); CARBON DIOXIDE 26 mmol/L (21-31); CHLORIDE 99 mmol/L (97-110); CREATININE 7.43 mg/dl (0.61-1.24); GLUCOSE 84 mg/dl (70-220); SODIUM 138 mmol/L (135-144)
[2017-08-15] MEDS: ACETAMINOPHEN 650MG/20.3ML CUP PO (07:55)
[2017-08-15] MEDS: ASPIRIN 325 MG TAB PO (08:35)
[2017-08-15] MEDS: FERROUS SULFATE (EC) 325 MG TAB PO ×2 (08:35→20:07)
[2017-08-15] MEDS: QUETIAPINE 25 MG TAB PO ×2 (08:35→20:09)
[2017-08-15] MEDS: VALPROIC ACID 250 MG CAP PO ×2 (08:36→20:08)
[2017-08-15] MEDS: LISINOPRIL 5 MG TAB PO (08:37)
[2017-08-15] MEDS: BALSAM PERU/CASTOR OIL 60 GM TUBE TOP (10:16)
[2017-08-15 10:28] LABS: ANISOCYTOSIS 1+ (0-0); BAND NEUTROPHILS #M 0.3 10^3/ul (0.0-0.6); BAND NEUTROPHILS % (M) 6 % (0-4); BASOPHILS % (M) 1 % (0-2); EOSINOPHILS % (M) 3 % (0-7); LYMPHOCYTES #M 0.4 10^3/ul (0.8-2.9); LYMPHOCYTES % (M) 8 % (15-51); MICROCYTOSIS 1+ (0-0); MONOCYTES % (M) 33 % (0-11); PLATELET ESTIMATE SIG DECREASED; POIKILOCYTOSIS 1+ (0-0); POLYCHROMASIA 3+ (0-0); SEGMENTED NEUTROPHILS (M) % 49 % (39-77); SMUDGE%M 1 % (0-0)
[2017-08-15] MEDS ORDERED: LACTULOSE 30ML CUP PO (13:30)
[2017-08-15] MEDS ORDERED: BISACODYL 10 MG SUPP PR (13:30)
[2017-08-15] MEDS: ALBUMIN HUMAN 5% 250 ML IV ×2 (13:56→14:00)
[2017-08-15] MEDS: ATORVASTATIN 40 MG TAB PO (20:09)
[2017-08-15] MEDS: CEFEPIME 1GM/50 ML (PMX) 50 ML IVPB (21:40)
[2017-08-15] MEDS: ALPRAZOLAM 0.25 MG TAB PO (22:59)
[2017-08-16] MEDS: morphine 2 MG INJ IV ×5 (01:03→18:26)
[2017-08-16] MEDS: ALBUTEROL/IPRATROPIUM (NEB) 3 ML AMP HHN ×4 (01:46→19:26)
[2017-08-16] MEDS: ACETYLCYSTEINE 20% 4 ML VIAL NEB ×4 (02:00→19:26)
[2017-08-16] MEDS: PANTOPRAZOLE (EC) 40 MG TAB PO ×2 (05:13→17:19)
[2017-08-16 06:18] LABS: ADD MAN DIFF? NO
[2017-08-16 06:48] LABS: ABNORMAL IP MESSAGE 1; BASOPHILS % 0.2 % (0.0-2.0); EOSINOPHILS # 0.6 10^3/ul (0.0-0.5); EOSINOPHILS % 10.7 % (0.0-7.0); HEMATOCRIT 24.3 % (42.0-52.0); HEMOGLOBIN 7.8 g/dl (14.0-18.0); LYMPHOCYTES # 0.4 10^3/ul (0.8-2.9); LYMPHOCYTES % 8.3 % (15.0-51.0); MEAN CORPUSCULAR HEMOGLOBIN 31.1 pg (29.0-33.0); MEAN CORPUSCULAR HGB CONC 32.1 g/dl (32.0-37.0); MEAN CORPUSCULAR VOLUME 96.8 fl (82.0-101.0); MONOCYTE # 1.6 10^3/ul (0.3-0.9); MONOCYTES % 29.9 % (0.0-11.0); NEUTROPHIL # 2.7 10^3/ul (1.6-7.5); NEUTROPHILS % 50.3 % (39.0-77.0); PLATELET COUNT 74 10^3/UL (140-415); POSITIVE DIFF @See below; RED BLOOD COUNT 2.51 10^6/ul (4.70-6.10); RED CELL DISTRIBUTION WIDTH 14.6 % (11.5-14.5)
[2017-08-16 06:48] LABS: WHITE BLOOD COUNT 5.3 10^3/ul (4.8-10.8)
[2017-08-16 06:54] LABS: ANION GAP 22 (8-16); BLOOD UREA NITROGEN 62 mg/dl (7-20); CALCIUM 8.3 mg/dl (8.4-10.2); CARBON DIOXIDE 23 mmol/L (21-31); CHLORIDE 100 mmol/L (97-110); CREATININE 9.19 mg/dl (0.61-1.24); GLUCOSE 91 mg/dl (70-220); POTASSIUM 4.1 mmol/L (3.5-5.1); SODIUM 141 mmol/L (135-144)
[2017-08-16] MEDS: VALPROIC ACID 250 MG CAP PO ×2 (08:20→20:39)
[2017-08-16] MEDS: ASPIRIN 325 MG TAB PO (08:20)
[2017-08-16] MEDS: QUETIAPINE 25 MG TAB PO ×2 (08:20→20:38)
[2017-08-16] MEDS: BALSAM PERU/CASTOR OIL 60 GM TUBE TOP (08:21)
[2017-08-16] MEDS: LISINOPRIL 5 MG TAB PO (08:21)
[2017-08-16] MEDS: FERROUS SULFATE (EC) 325 MG TAB PO ×2 (08:21→20:38)
[2017-08-16] MEDS: HYDROmorphONE 0.5 MG/0.5 ML SYG IV (15:06)
[2017-08-16] MEDS ORDERED: HYDROmorphONE 2 MG TAB PO ×2 (18:00)
[2017-08-16] MEDS: ATORVASTATIN 40 MG TAB PO (20:38)
[2017-08-16] MEDS: HYDROmorphONE 1 MG/ML SYG IV (21:06)
[2017-08-17] MEDS: ACETYLCYSTEINE 20% 4 ML VIAL NEB ×4 (02:00→19:15)
[2017-08-17] MEDS: ALBUTEROL/IPRATROPIUM (NEB) 3 ML AMP HHN ×4 (02:00→19:14)
[2017-08-17] MEDS: HYDROmorphONE 1 MG/ML SYG IV (02:32)
[2017-08-17] MEDS: morphine 2 MG INJ IV ×3 (04:11→09:17)
[2017-08-17] MEDS: PANTOPRAZOLE (EC) 40 MG TAB PO ×2 (06:31→18:04)
[2017-08-17 08:16] LABS: ABNORMAL IP MESSAGE 1; HEMATOCRIT 23.7 % (42.0-52.0); HEMOGLOBIN 7.6 g/dl (14.0-18.0); MEAN CORPUSCULAR HEMOGLOBIN 30.8 pg (29.0-33.0); MEAN CORPUSCULAR HGB CONC 32.1 g/dl (32.0-37.0); MEAN PLATELET VOLUME 10.3 fl (7.4-10.4); PLATELET COUNT 88 10^3/UL (140-415); POSITIVE DIFF @See below; RED BLOOD COUNT 2.47 10^6/ul (4.70-6.10); RED CELL DISTRIBUTION WIDTH 14.7 % (11.5-14.5)
[2017-08-17 08:16] LABS: WHITE BLOOD COUNT 6.2 10^3/ul (4.8-10.8)
[2017-08-17 08:21] LABS: ADD MAN DIFF? YES
[2017-08-17 08:39] LABS: ANION GAP 24 (8-16); BLOOD UREA NITROGEN 80 mg/dl (7-20); CALCIUM 8.4 mg/dl (8.4-10.2); CARBON DIOXIDE 22 mmol/L (21-31); CHLORIDE 97 mmol/L (97-110); CREATININE 10.67 mg/dl (0.61-1.24); GLUCOSE 78 mg/dl (70-220); POTASSIUM 4.5 mmol/L (3.5-5.1); SODIUM 138 mmol/L (135-144)
[2017-08-17] MEDS: QUETIAPINE 25 MG TAB PO ×2 (09:15→20:35)
[2017-08-17] MEDS: BALSAM PERU/CASTOR OIL 60 GM TUBE TOP (09:15)
[2017-08-17] MEDS: FERROUS SULFATE (EC) 325 MG TAB PO ×2 (09:16→20:35)
[2017-08-17] MEDS: ASPIRIN 325 MG TAB PO (09:16)
[2017-08-17] MEDS: LISINOPRIL 5 MG TAB PO (09:16)
[2017-08-17] MEDS: VALPROIC ACID 250 MG CAP PO ×2 (09:16→20:35)
[2017-08-17 09:48] LABS: ANISOCYTOSIS 1+ (0-0); BAND NEUTROPHILS #M 1.2 10^3/ul (0.0-0.6); BAND NEUTROPHILS % (M) 20 % (0-4); BASOPHILS % (M) 1 % (0-2); EOSINOPHILS % (M) 19 % (0-7); LYMPHOCYTES #M 0.9 10^3/ul (0.8-2.9); LYMPHOCYTES % (M) 16 % (15-51); METAMYELOCYTES %M 1 % (0-0); MONOCYTE #M 0.9 10^3/ul (0.3-0.9); MONOCYTES % (M) 16 % (0-11); OVALOCYTES 1+ (0-0); PLATELET ESTIMATE DECREASED; POIKILOCYTOSIS 1+ (0-0); POLYCHROMASIA 1+ (0-0); SEG NEUT #M 1.7 10^3/ul (1.7-7.5); SEGMENTED NEUTROPHILS (M) % 26 % (39-77); SMUDGE%M 5 % (0-0)
[2017-08-17] MEDS: HYDROmorphONE 0.5 MG/0.5 ML SYG IV ×3 (11:53→20:36)
[2017-08-17] MEDS: ONDANSETRON 4 MG INJ IV (13:17)
[2017-08-17] MEDS: ALBUMIN HUMAN 25% 100 ML IV (14:15)
[2017-08-17] MEDS: EPOETIN 3000 UNITS/1 ML INJ (ESRD) SC (16:45)
[2017-08-17] MEDS: ATORVASTATIN 40 MG TAB PO (20:34)
[2017-08-17] MEDS: HALOPERIDOL 5 MG INJ IM (23:08)
[2017-08-18] MEDS: ALBUTEROL/IPRATROPIUM (NEB) 3 ML AMP HHN ×4 (01:13→20:24)
[2017-08-18] MEDS: ACETYLCYSTEINE 20% 4 ML VIAL NEB ×4 (01:13→20:26)
[2017-08-18] MEDS: HYDROmorphONE 0.5 MG/0.5 ML SYG IV ×4 (05:01→20:08)
[2017-08-18] MEDS: PANTOPRAZOLE (EC) 40 MG TAB PO ×2 (05:01→17:45)
[2017-08-18 07:16] LABS: ABNORMAL IP MESSAGE 1; HEMATOCRIT 20.3 % (42.0-52.0); MEAN CORPUSCULAR HEMOGLOBIN 30.8 pg (29.0-33.0); MEAN CORPUSCULAR HGB CONC 32.5 g/dl (32.0-37.0); MEAN CORPUSCULAR VOLUME 94.9 fl (82.0-101.0); MEAN PLATELET VOLUME 10.5 fl (7.4-10.4); PLATELET COUNT 97 10^3/UL (140-415); POSITIVE DIFF @See below; RED BLOOD COUNT 2.14 10^6/ul (4.70-6.10); RED CELL DISTRIBUTION WIDTH 14.6 % (11.5-14.5)
[2017-08-18 07:21] LABS: HEMOGLOBIN 6.6 g/dl (14.0-18.0)
[2017-08-18 07:22] LABS: ADD MAN DIFF? YES
[2017-08-18 07:42] LABS: ANION GAP 18 (8-16); BLOOD UREA NITROGEN 64 mg/dl (7-20); CALCIUM 7.9 mg/dl (8.4-10.2); CARBON DIOXIDE 24 mmol/L (21-31); CHLORIDE 100 mmol/L (97-110); CREATININE 8.34 mg/dl (0.61-1.24); GLUCOSE 80 mg/dl (70-220); POTASSIUM 4.1 mmol/L (3.5-5.1); SODIUM 138 mmol/L (135-144)
[2017-08-18 07:44] LABS: MAGNESIUM 1.7 mg/dl (1.7-2.5)
[2017-08-18 07:44] LABS: PHOSPHORUS 5.8 mg/dl (2.5-4.9)
[2017-08-18] MEDS: LISINOPRIL 5 MG TAB PO (09:00)
[2017-08-18 09:35] LABS: ANISOCYTOSIS 1+ (0-0); BAND NEUTROPHILS #M 0.7 10^3/ul (0.0-0.6); BAND NEUTROPHILS % (M) 19 % (0-4); EOSINOPHILS % (M) 14 % (0-7); LYMPHOCYTES #M 0.8 10^3/ul (0.8-2.9); LYMPHOCYTES % (M) 20 % (15-51); MICROCYTOSIS 1+ (0-0); MONOCYTE #M 0.6 10^3/ul (0.3-0.9); MONOCYTES % (M) 17 % (0-11); PLATELET ESTIMATE DECREASED; POIKILOCYTOSIS 1+ (0-0); POLYCHROMASIA 3+ (0-0); SEG NEUT #M 1.2 10^3/ul (1.7-7.5); SEGMENTED NEUTROPHILS (M) % 30 % (39-77); SMUDGE%M 3 % (0-0)
[2017-08-18] MEDS: VALPROIC ACID 250 MG CAP PO ×2 (09:36→20:04)
[2017-08-18] MEDS: QUETIAPINE 25 MG TAB PO ×2 (09:36→20:04)
[2017-08-18] MEDS: FERROUS SULFATE (EC) 325 MG TAB PO ×2 (09:36→20:03)
[2017-08-18] MEDS: ASPIRIN 325 MG TAB PO (09:36)
[2017-08-18] MEDS: BALSAM PERU/CASTOR OIL 60 GM TUBE TOP (09:37)
[2017-08-18 15:33] LABS: IMMEDIATE SPIN CROSSMATCH 1 2
[2017-08-18] MEDS: ATORVASTATIN 40 MG TAB PO (20:04)
[2017-08-18] MEDS: ALPRAZOLAM 0.25 MG TAB PO (22:30)
[2017-08-19] MEDS: HYDROmorphONE 0.5 MG/0.5 ML SYG IV ×5 (00:36→22:05)
[2017-08-19] MEDS: ACETYLCYSTEINE 20% 4 ML VIAL NEB ×4 (02:00→20:32)
[2017-08-19] MEDS: ALBUTEROL/IPRATROPIUM (NEB) 3 ML AMP HHN ×4 (02:00→20:32)
[2017-08-19] MEDS: ALPRAZOLAM 0.25 MG TAB PO ×2 (03:16→20:35)
[2017-08-19 04:12] LABS: AADO2 Arterial 151.4 mmHg (7.0-24.0); Allen Test ACCEPTAB; Arterial Base Excess -6.8 mmol/L (-3.0-3); Arterial Blood Gas Oxygen Sat 92.6 mmHG (95.0-98.0); Arterial COHb 0.6 % (0.0-3.0); Arterial Fraction of Oxyhgb 91.8 % (93.0-99.0); Arterial HCO3 20.3 mmol/L (22.0-26.0); Arterial MetHb 0.3 % (0.0-1.5); Arterial pCO2 47.3 mmhg (35-45); MODE NASAL CANNULA; Site Right Radial
[2017-08-19] MEDS: FUROSEMIDE 40 MG INJ IV (04:52)
[2017-08-19] MEDS: LEVALBUTEROL (NEB) 0.63 MG/3 ML AMP HHN (04:59)
[2017-08-19] MEDS: PANTOPRAZOLE (EC) 40 MG TAB PO ×2 (05:56→18:05)
[2017-08-19] MEDS: LISINOPRIL 5 MG TAB PO (09:00)
[2017-08-19 09:23] LABS: WHITE BLOOD COUNT 5.8 10^3/ul (4.8-10.8)
[2017-08-19 09:23] LABS: ABNORMAL IP MESSAGE 1; HEMATOCRIT 26.1 % (42.0-52.0); HEMOGLOBIN 8.7 g/dl (14.0-18.0); MEAN CORPUSCULAR HGB CONC 33.3 g/dl (32.0-37.0); MEAN CORPUSCULAR VOLUME 92.9 fl (82.0-101.0); MEAN PLATELET VOLUME 9.9 fl (7.4-10.4); PLATELET COUNT 113 10^3/UL (140-415); POSITIVE DIFF @See below; RED BLOOD COUNT 2.81 10^6/ul (4.70-6.10); RED CELL DISTRIBUTION WIDTH 16.5 % (11.5-14.5)
[2017-08-19 09:28] LABS: ADD MAN DIFF? YES
[2017-08-19 09:51] LABS: PHOSPHORUS 6.5 mg/dl (2.5-4.9)
[2017-08-19 09:51] LABS: MAGNESIUM 1.6 mg/dl (1.7-2.5)
[2017-08-19 09:55] LABS: ANION GAP 23 (8-16); BLOOD UREA NITROGEN 74 mg/dl (7-20); CALCIUM 7.9 mg/dl (8.4-10.2); CARBON DIOXIDE 20 mmol/L (21-31); CHLORIDE 101 mmol/L (97-110); GLUCOSE 79 mg/dl (70-220); POTASSIUM 4.3 mmol/L (3.5-5.1); SODIUM 140 mmol/L (135-144)
[2017-08-19] MEDS: QUETIAPINE 25 MG TAB PO ×2 (10:01→20:35)
[2017-08-19] MEDS: FERROUS SULFATE (EC) 325 MG TAB PO ×2 (10:02→20:36)
[2017-08-19] MEDS: VALPROIC ACID 250 MG CAP PO ×2 (10:02→20:34)
[2017-08-19] MEDS: ASPIRIN 325 MG TAB PO (10:02)
[2017-08-19] MEDS: BALSAM PERU/CASTOR OIL 60 GM TUBE TOP (10:04)
[2017-08-19 10:20] LABS: ANISOCYTOSIS 1+ (0-0); BAND NEUTROPHILS #M 0.4 10^3/ul (0.0-0.6); BAND NEUTROPHILS % (M) 7 % (0-4); BASOPHILS % (M) 1 % (0-2); EOSINOPHILS % (M) 13 % (0-7); LYMPHOCYTES #M 0.5 10^3/ul (0.8-2.9); LYMPHOCYTES % (M) 9 % (15-51); MONOCYTE #M 1.1 10^3/ul (0.3-0.9); MONOCYTES % (M) 20 % (0-11); PLATELET ESTIMATE DECREASED; POIKILOCYTOSIS 1+ (0-0); POLYCHROMASIA 3+ (0-0); SEG NEUT #M 2.9 10^3/ul (1.7-7.5); SEGMENTED NEUTROPHILS (M) % 50 % (39-77); SMUDGE%M 2 % (0-0)
[2017-08-19] MEDS: EPOETIN 3000 UNITS/1 ML INJ (ESRD) SC (18:07)
[2017-08-19] MEDS: ATORVASTATIN 40 MG TAB PO (20:34)
[2017-08-20] MEDS: ALBUTEROL/IPRATROPIUM (NEB) 3 ML AMP HHN ×4 (02:02→19:13)
[2017-08-20] MEDS: ACETYLCYSTEINE 20% 4 ML VIAL NEB ×4 (02:02→19:13)
[2017-08-20] MEDS: HYDROmorphONE 0.5 MG/0.5 ML SYG IV (03:46)
[2017-08-20] MEDS: PANTOPRAZOLE (EC) 40 MG TAB PO ×2 (06:41→17:12)
[2017-08-20 07:00] LABS: ADD MAN DIFF? NO
[2017-08-20 07:04] LABS: WHITE BLOOD COUNT 6.6 10^3/ul (4.8-10.8)
[2017-08-20 07:04] LABS: ABNORMAL IP MESSAGE 1; BASOPHILS % 0.3 % (0.0-2.0); EOSINOPHILS # 0.6 10^3/ul (0.0-0.5); EOSINOPHILS % 9.1 % (0.0-7.0); HEMATOCRIT 27.7 % (42.0-52.0); HEMOGLOBIN 9.4 g/dl (14.0-18.0); LYMPHOCYTES # 0.7 10^3/ul (0.8-2.9); LYMPHOCYTES % 10.6 % (15.0-51.0); MEAN CORPUSCULAR HEMOGLOBIN 31.3 pg (29.0-33.0); MEAN CORPUSCULAR HGB CONC 33.9 g/dl (32.0-37.0); MEAN CORPUSCULAR VOLUME 92.3 fl (82.0-101.0); MEAN PLATELET VOLUME 9.6 fl (7.4-10.4); MONOCYTE # 1.6 10^3/ul (0.3-0.9); MONOCYTES % 23.7 % (0.0-11.0); NEUTROPHIL # 3.6 10^3/ul (1.6-7.5); NEUTROPHILS % 54.8 % (39.0-77.0); PLATELET COUNT 115 10^3/UL (140-415); POSITIVE DIFF @See below; RED CELL DISTRIBUTION WIDTH 15.6 % (11.5-14.5)
[2017-08-20 07:07] LABS: AADO2 Arterial 158.7 mmHg (7.0-24.0); Allen Test ACCEPTAB; Arterial Base Excess -7.9 mmol/L (-3.0-3); Arterial COHb 0.6 % (0.0-3.0); Arterial Fraction of Oxyhgb 91.1 % (93.0-99.0); Arterial HCO3 18.7 mmol/L (22.0-26.0); Arterial MetHb 0.4 % (0.0-1.5); Arterial Total Hemglobin 9.6 g/dl (12.0-18.0); Arterial pCO2 42.5 mmhg (35-45); MODE NASAL CANNULA; Site Right Radial
[2017-08-20 07:39] LABS: ANION GAP 18 (8-16); BLOOD UREA NITROGEN 56 mg/dl (7-20); CALCIUM 8.2 mg/dl (8.4-10.2); CARBON DIOXIDE 24 mmol/L (21-31); CHLORIDE 102 mmol/L (97-110); CREATININE 8.18 mg/dl (0.61-1.24); GLUCOSE 76 mg/dl (70-220); POTASSIUM 3.6 mmol/L (3.5-5.1); SODIUM 140 mmol/L (135-144)
[2017-08-20 07:46] LABS: PHOSPHORUS 4.7 mg/dl (2.5-4.9)
[2017-08-20 07:46] LABS: MAGNESIUM 1.6 mg/dl (1.7-2.5)
[2017-08-20] MEDS: FERROUS SULFATE (EC) 325 MG TAB PO ×2 (10:32→21:28)
[2017-08-20] MEDS: LISINOPRIL 5 MG TAB PO (10:33)
[2017-08-20] MEDS: QUETIAPINE 25 MG TAB PO ×2 (10:33→21:12)
[2017-08-20] MEDS: ASPIRIN 325 MG TAB PO (10:34)
[2017-08-20] MEDS: VALPROIC ACID 250 MG CAP PO ×2 (10:34→21:10)
[2017-08-20] MEDS: BALSAM PERU/CASTOR OIL 60 GM TUBE TOP (10:35)
[2017-08-20 19:33] LABS: AMPHETAMINE/METHAMPHETAMINE Negative (NEGATIVE); BARBITURATES Negative (NEGATIVE); CANNABINOIDS Negative (NEGATIVE); COCAINE Negative (NEGATIVE)
[2017-08-20 19:34] LABS: BENZODIAZEPINES Positive (NEGATIVE); OPIATES Positive (NEGATIVE)
[2017-08-20] MEDS: HYDROmorphONE 2 MG TAB PO (21:11)
[2017-08-20] MEDS: ATORVASTATIN 40 MG TAB PO (21:12)
[2017-08-20] MEDS: ACETAMINOPHEN 650MG/20.3ML CUP PO (21:13)
[2017-08-21] MEDS: ALBUTEROL/IPRATROPIUM (NEB) 3 ML AMP HHN ×4 (02:03→20:43)
[2017-08-21] MEDS: ACETYLCYSTEINE 20% 4 ML VIAL NEB ×4 (02:03→20:00)
[2017-08-21] MEDS: PANTOPRAZOLE (EC) 40 MG TAB PO ×2 (06:00→17:05)
[2017-08-21 08:37] LABS: ADD MAN DIFF? NO
[2017-08-21 08:41] LABS: ABNORMAL IP MESSAGE 1; BASOPHILS % 0.1 % (0.0-2.0); EOSINOPHILS # 0.8 10^3/ul (0.0-0.5); EOSINOPHILS % 9.8 % (0.0-7.0); HEMATOCRIT 29.6 % (42.0-52.0); HEMOGLOBIN 9.7 g/dl (14.0-18.0); LYMPHOCYTES # 0.6 10^3/ul (0.8-2.9); LYMPHOCYTES % 7.1 % (15.0-51.0); MEAN CORPUSCULAR HEMOGLOBIN 30.2 pg (29.0-33.0); MEAN CORPUSCULAR HGB CONC 32.8 g/dl (32.0-37.0); MEAN CORPUSCULAR VOLUME 92.2 fl (82.0-101.0); MEAN PLATELET VOLUME 9.8 fl (7.4-10.4); MONOCYTE # 1.6 10^3/ul (0.3-0.9); NEUTROPHILS % 61.3 % (39.0-77.0); PLATELET COUNT 150 10^3/UL (140-415); POSITIVE DIFF @See below; RED BLOOD COUNT 3.21 10^6/ul (4.70-6.10); RED CELL DISTRIBUTION WIDTH 15.3 % (11.5-14.5)
[2017-08-21 08:41] LABS: WHITE BLOOD COUNT 8.1 10^3/ul (4.8-10.8)
[2017-08-21 08:51] LABS: MONOCYTES % 20.2 % (0.0-11.0)
[2017-08-21] MEDS: LISINOPRIL 5 MG TAB PO (09:00)
[2017-08-21 09:06] LABS: MAGNESIUM 1.6 mg/dl (1.7-2.5)
[2017-08-21 09:12] LABS: ANION GAP 20 (8-16); BLOOD UREA NITROGEN 68 mg/dl (7-20); CALCIUM 8.4 mg/dl (8.4-10.2); CARBON DIOXIDE 22 mmol/L (21-31); CHLORIDE 103 mmol/L (97-110); CREATININE 9.09 mg/dl (0.61-1.24); GLUCOSE 72 mg/dl (70-220); POTASSIUM 3.7 mmol/L (3.5-5.1); SODIUM 141 mmol/L (135-144)
[2017-08-21] MEDS: QUETIAPINE 25 MG TAB PO ×2 (09:19→21:21)
[2017-08-21] MEDS: FERROUS SULFATE (EC) 325 MG TAB PO ×2 (09:19→21:21)
[2017-08-21] MEDS: HYDROmorphONE 2 MG TAB PO (09:20)
[2017-08-21] MEDS: ASPIRIN 325 MG TAB PO (09:20)
[2017-08-21] MEDS: VALPROIC ACID 250 MG CAP PO ×2 (09:21→21:21)
[2017-08-21] MEDS: BALSAM PERU/CASTOR OIL 60 GM TUBE TOP (09:21)
[2017-08-21] MEDS: MAGNESIUM SULFATE 2 GM/50 ML 50 ML IVPB (10:52)
[2017-08-21] MEDS: EPOETIN 3000 UNITS/1 ML INJ (ESRD) SC (17:06)
[2017-08-21] MEDS: morphine 2 MG INJ IV (20:08)
[2017-08-21] MEDS: HEPARIN 5,000 UNIT/0.5 ML VIAL SC (21:21)
[2017-08-21] MEDS: ATORVASTATIN 40 MG TAB PO (21:21)
[2017-08-22] MEDS: morphine 2 MG INJ IV ×3 (00:22→22:07)
[2017-08-22] MEDS: ALBUTEROL/IPRATROPIUM (NEB) 3 ML AMP HHN ×4 (02:00→19:49)
[2017-08-22] MEDS: ACETYLCYSTEINE 20% 4 ML VIAL NEB ×5 (02:00→20:00)
[2017-08-22] MEDS: PANTOPRAZOLE (EC) 40 MG TAB PO ×2 (06:00→17:13)
[2017-08-22 06:03] LABS: ADD MAN DIFF? NO
[2017-08-22 06:06] LABS: ABNORMAL IP MESSAGE 1; BASOPHILS % 0.3 % (0.0-2.0); EOSINOPHILS # 0.6 10^3/ul (0.0-0.5); EOSINOPHILS % 7.8 % (0.0-7.0); HEMATOCRIT 30.1 % (42.0-52.0); HEMOGLOBIN 9.6 g/dl (14.0-18.0); LYMPHOCYTES # 0.8 10^3/ul (0.8-2.9); LYMPHOCYTES % 9.5 % (15.0-51.0); MEAN CORPUSCULAR HEMOGLOBIN 29.5 pg (29.0-33.0); MEAN CORPUSCULAR HGB CONC 31.9 g/dl (32.0-37.0); MEAN CORPUSCULAR VOLUME 92.6 fl (82.0-101.0); MEAN PLATELET VOLUME 9.4 fl (7.4-10.4); MONOCYTE # 1.7 10^3/ul (0.3-0.9); MONOCYTES % 21.1 % (0.0-11.0); NEUTROPHIL # 4.7 10^3/ul (1.6-7.5); NEUTROPHILS % 58.5 % (39.0-77.0); PLATELET COUNT 167 10^3/UL (140-415); POSITIVE DIFF @See below; RED BLOOD COUNT 3.25 10^6/ul (4.70-6.10); RED CELL DISTRIBUTION WIDTH 15.3 % (11.5-14.5)
[2017-08-22 06:19] LABS: PHOSPHORUS 4.2 mg/dl (2.5-4.9)
[2017-08-22 07:01] LABS: ANION GAP 20 (8-16); BLOOD UREA NITROGEN 54 mg/dl (7-20); CALCIUM 8.1 mg/dl (8.4-10.2); CARBON DIOXIDE 24 mmol/L (21-31); CHLORIDE 103 mmol/L (97-110); CREATININE 8.15 mg/dl (0.61-1.24); GLUCOSE 84 mg/dl (70-220); POTASSIUM 3.5 mmol/L (3.5-5.1); SODIUM 143 mmol/L (135-144)
[2017-08-22] MEDS: ASPIRIN 325 MG TAB PO (08:49)
[2017-08-22] MEDS: FERROUS SULFATE (EC) 325 MG TAB PO ×2 (08:51→20:44)
[2017-08-22] MEDS: LISINOPRIL 5 MG TAB PO (08:51)
[2017-08-22] MEDS: QUETIAPINE 25 MG TAB PO ×2 (08:52→20:44)
[2017-08-22] MEDS: HEPARIN 5,000 UNIT/0.5 ML VIAL SC ×2 (08:53→20:44)
[2017-08-22] MEDS: VALPROIC ACID 250 MG CAP PO ×2 (08:55→21:40)
[2017-08-22] MEDS: BALSAM PERU/CASTOR OIL 60 GM TUBE TOP (09:00)
[2017-08-22] MEDS: ATORVASTATIN 40 MG TAB PO (20:44)
[2017-08-22] MEDS: HYDROmorphONE 2 MG TAB PO (22:14)
[2017-08-23] MEDS: ACETYLCYSTEINE 20% 4 ML VIAL NEB ×4 (02:00→19:36)
[2017-08-23] MEDS: ALBUTEROL/IPRATROPIUM (NEB) 3 ML AMP HHN ×4 (02:15→19:27)
[2017-08-23] MEDS: PANTOPRAZOLE (EC) 40 MG TAB PO ×2 (05:26→18:01)
[2017-08-23] MEDS: traMADol 50 MG TAB PO (05:33)
[2017-08-23 06:00] LABS: ADD MAN DIFF? NO
[2017-08-23 06:11] LABS: WHITE BLOOD COUNT 8.5 10^3/ul (4.8-10.8)
[2017-08-23 06:11] LABS: ABNORMAL IP MESSAGE 1; BASOPHILS % 0.2 % (0.0-2.0); EOSINOPHILS # 0.7 10^3/ul (0.0-0.5); EOSINOPHILS % 7.7 % (0.0-7.0); HEMATOCRIT 29.5 % (42.0-52.0); HEMOGLOBIN 9.4 g/dl (14.0-18.0); LYMPHOCYTES # 0.9 10^3/ul (0.8-2.9); LYMPHOCYTES % 10.4 % (15.0-51.0); MEAN CORPUSCULAR HEMOGLOBIN 29.8 pg (29.0-33.0); MEAN CORPUSCULAR HGB CONC 31.9 g/dl (32.0-37.0); MEAN CORPUSCULAR VOLUME 93.7 fl (82.0-101.0); MEAN PLATELET VOLUME 9.3 fl (7.4-10.4); MONOCYTE # 1.7 10^3/ul (0.3-0.9); NEUTROPHILS % 59.3 % (39.0-77.0); PLATELET COUNT 188 10^3/UL (140-415); POSITIVE DIFF @See below; RED BLOOD COUNT 3.15 10^6/ul (4.70-6.10); RED CELL DISTRIBUTION WIDTH 15.4 % (11.5-14.5)
[2017-08-23 07:24] LABS: ANION GAP 19 (8-16); BLOOD UREA NITROGEN 65 mg/dl (7-20); CALCIUM 8.2 mg/dl (8.4-10.2); CARBON DIOXIDE 24 mmol/L (21-31); CHLORIDE 103 mmol/L (97-110); CREATININE 9.36 mg/dl (0.61-1.24); GLUCOSE 77 mg/dl (70-220); POTASSIUM 3.8 mmol/L (3.5-5.1); SODIUM 142 mmol/L (135-144)
[2017-08-23 07:27] LABS: MAGNESIUM 1.8 mg/dl (1.7-2.5)
[2017-08-23] MEDS: HEPARIN 5,000 UNIT/0.5 ML VIAL SC ×2 (09:00→21:56)
[2017-08-23] MEDS: QUETIAPINE 25 MG TAB PO ×2 (09:03→21:55)
[2017-08-23] MEDS: ASPIRIN 325 MG TAB PO (09:03)
[2017-08-23] MEDS: VALPROIC ACID 250 MG CAP PO ×2 (09:03→21:55)
[2017-08-23] MEDS: LISINOPRIL 5 MG TAB PO (09:03)
[2017-08-23] MEDS: FERROUS SULFATE (EC) 325 MG TAB PO ×2 (09:04→21:58)
[2017-08-23] MEDS: BALSAM PERU/CASTOR OIL 60 GM TUBE TOP (09:04)
[2017-08-23] MEDS: ATORVASTATIN 40 MG TAB PO (21:55)
[2017-08-24] MEDS: ALBUTEROL/IPRATROPIUM (NEB) 3 ML AMP HHN ×4 (01:16→19:38)
[2017-08-24] MEDS: ACETYLCYSTEINE 20% 4 ML VIAL NEB ×4 (01:16→19:42)
[2017-08-24] MEDS: traMADol 50 MG TAB PO ×2 (01:21→15:40)
[2017-08-24 05:34] LABS: ADD MAN DIFF? NO
[2017-08-24 05:48] LABS: WHITE BLOOD COUNT 9.4 10^3/ul (4.8-10.8)
[2017-08-24 05:48] LABS: ABNORMAL IP MESSAGE 1; BASOPHILS % 0.3 % (0.0-2.0); EOSINOPHILS # 0.7 10^3/ul (0.0-0.5); EOSINOPHILS % 7.7 % (0.0-7.0); HEMOGLOBIN 9.2 g/dl (14.0-18.0); LYMPHOCYTES % 10.1 % (15.0-51.0); MEAN CORPUSCULAR HEMOGLOBIN 30.6 pg (29.0-33.0); MEAN CORPUSCULAR HGB CONC 32.9 g/dl (32.0-37.0); MEAN PLATELET VOLUME 9.3 fl (7.4-10.4); MONOCYTE # 1.7 10^3/ul (0.3-0.9); MONOCYTES % 18.1 % (0.0-11.0); NEUTROPHIL # 5.7 10^3/ul (1.6-7.5); NEUTROPHILS % 60.7 % (39.0-77.0); NUCLEATED RED BLOOD CELLS% 0.2 /100WBC (0.0-0.0); PLATELET COUNT 189 10^3/UL (140-415); POSITIVE DIFF @See below; RED BLOOD COUNT 3.01 10^6/ul (4.70-6.10); RED CELL DISTRIBUTION WIDTH 15.5 % (11.5-14.5)
[2017-08-24 06:14] LABS: ANION GAP 22 (8-16); BLOOD UREA NITROGEN 75 mg/dl (7-20); CALCIUM 8.1 mg/dl (8.4-10.2); CARBON DIOXIDE 22 mmol/L (21-31); CHLORIDE 103 mmol/L (97-110); CREATININE 9.98 mg/dl (0.61-1.24); GLUCOSE 72 mg/dl (70-220); POTASSIUM 4.1 mmol/L (3.5-5.1); SODIUM 143 mmol/L (135-144)
[2017-08-24] MEDS: PANTOPRAZOLE (EC) 40 MG TAB PO ×2 (06:51→17:32)
[2017-08-24] MEDS: BALSAM PERU/CASTOR OIL 60 GM TUBE TOP (09:00)
[2017-08-24] MEDS: HEPARIN 5,000 UNIT/0.5 ML VIAL SC ×3 (09:00→21:00)
[2017-08-24] MEDS: LISINOPRIL 5 MG TAB PO (09:00)
[2017-08-24] MEDS: FERROUS SULFATE (EC) 325 MG TAB PO ×2 (09:35→21:37)
[2017-08-24] MEDS: VALPROIC ACID 250 MG CAP PO ×2 (09:35→21:37)
[2017-08-24] MEDS: ASPIRIN 325 MG TAB PO (09:35)
[2017-08-24] MEDS: QUETIAPINE 25 MG TAB PO ×2 (09:35→21:37)
[2017-08-24] MEDS: ATORVASTATIN 40 MG TAB PO (21:37)
[2017-08-24] MEDS: EPOETIN 3000 UNITS/1 ML INJ (ESRD) SC (21:41)
[2017-08-25] MEDS: ACETYLCYSTEINE 20% 4 ML VIAL NEB ×4 (01:01→20:00)
[2017-08-25] MEDS: ALBUTEROL/IPRATROPIUM (NEB) 3 ML AMP HHN ×4 (01:01→20:11)
[2017-08-25] MEDS: LORAZEPAM 2 MG INJ IV (03:12)
[2017-08-25] MEDS: PANTOPRAZOLE (EC) 40 MG TAB PO ×2 (06:10→18:51)
[2017-08-25] MEDS: HEPARIN 5,000 UNIT/0.5 ML VIAL SC ×3 (09:00→20:26)
[2017-08-25] MEDS: BALSAM PERU/CASTOR OIL 60 GM TUBE TOP (09:00)
[2017-08-25] MEDS ORDERED: ZOLPIDEM 5 MG TAB PO (09:00)
[2017-08-25 09:19] LABS: ADD MAN DIFF? NO
[2017-08-25 09:21] LABS: ABNORMAL IP MESSAGE 1; BASOPHILS % 0.4 % (0.0-2.0); EOSINOPHILS # 0.7 10^3/ul (0.0-0.5); EOSINOPHILS % 6.8 % (0.0-7.0); HEMOGLOBIN 9.6 g/dl (14.0-18.0); LYMPHOCYTES # 0.8 10^3/ul (0.8-2.9); LYMPHOCYTES % 7.6 % (15.0-51.0); MEAN CORPUSCULAR HEMOGLOBIN 29.9 pg (29.0-33.0); MEAN CORPUSCULAR VOLUME 93.5 fl (82.0-101.0); MEAN PLATELET VOLUME 9.2 fl (7.4-10.4); MONOCYTE # 2.2 10^3/ul (0.3-0.9); NEUTROPHIL # 6.7 10^3/ul (1.6-7.5); NEUTROPHILS % 61.9 % (39.0-77.0); PLATELET COUNT 208 10^3/UL (140-415); POSITIVE DIFF @See below; RED BLOOD COUNT 3.21 10^6/ul (4.70-6.10); RED CELL DISTRIBUTION WIDTH 15.2 % (11.5-14.5)
[2017-08-25 09:21] LABS: WHITE BLOOD COUNT 10.8 10^3/ul (4.8-10.8)
[2017-08-25 09:26] LABS: MONOCYTES % 20.3 % (0.0-11.0)
[2017-08-25 09:59] LABS: ANION GAP 20 (8-16); BLOOD UREA NITROGEN 64 mg/dl (7-20); CALCIUM 8.2 mg/dl (8.4-10.2); CARBON DIOXIDE 23 mmol/L (21-31); CHLORIDE 101 mmol/L (97-110); CREATININE 8.67 mg/dl (0.61-1.24); GLUCOSE 74 mg/dl (70-220); POTASSIUM 4.2 mmol/L (3.5-5.1); SODIUM 140 mmol/L (135-144)
[2017-08-25] MEDS: ASPIRIN 325 MG TAB PO (10:56)
[2017-08-25] MEDS: VALPROIC ACID 250 MG CAP PO ×2 (10:57→20:25)
[2017-08-25] MEDS: FERROUS SULFATE (EC) 325 MG TAB PO ×2 (10:57→20:25)
[2017-08-25] MEDS: QUETIAPINE 25 MG TAB PO ×2 (10:57→20:25)
[2017-08-25] MEDS: LISINOPRIL 5 MG TAB PO (10:58)
[2017-08-25] MEDS: traMADol 50 MG TAB PO (11:08)
[2017-08-25] MEDS: ATORVASTATIN 40 MG TAB PO (20:25)
[2017-08-26] MEDS: ALBUTEROL/IPRATROPIUM (NEB) 3 ML AMP HHN ×4 (01:47→19:47)
[2017-08-26] MEDS: ACETYLCYSTEINE 20% 4 ML VIAL NEB ×4 (01:48→19:49)
[2017-08-26] MEDS: ALPRAZOLAM 0.25 MG TAB PO (03:07)
[2017-08-26 05:13] LABS: ADD MAN DIFF? NO
[2017-08-26 05:16] LABS: WHITE BLOOD COUNT 8.7 10^3/ul (4.8-10.8)
[2017-08-26 05:16] LABS: ABNORMAL IP MESSAGE 1; BASOPHILS % 0.3 % (0.0-2.0); EOSINOPHILS # 0.7 10^3/ul (0.0-0.5); EOSINOPHILS % 8.1 % (0.0-7.0); HEMATOCRIT 27.8 % (42.0-52.0); LYMPHOCYTES # 0.7 10^3/ul (0.8-2.9); LYMPHOCYTES % 8.5 % (15.0-51.0); MEAN CORPUSCULAR HEMOGLOBIN 30.1 pg (29.0-33.0); MEAN CORPUSCULAR HGB CONC 32.4 g/dl (32.0-37.0); MONOCYTE # 1.9 10^3/ul (0.3-0.9); NEUTROPHIL # 5.1 10^3/ul (1.6-7.5); NEUTROPHILS % 58.6 % (39.0-77.0); PLATELET COUNT 176 10^3/UL (140-415); POSITIVE DIFF @See below; RED BLOOD COUNT 2.99 10^6/ul (4.70-6.10); RED CELL DISTRIBUTION WIDTH 15.4 % (11.5-14.5)
[2017-08-26] MEDS: PANTOPRAZOLE (EC) 40 MG TAB PO ×2 (05:24→18:04)
[2017-08-26 05:45] LABS: ANION GAP 19 (8-16); BLOOD UREA NITROGEN 76 mg/dl (7-20); CALCIUM 8.3 mg/dl (8.4-10.2); CARBON DIOXIDE 21 mmol/L (21-31); CHLORIDE 103 mmol/L (97-110); CREATININE 9.58 mg/dl (0.61-1.24); GLUCOSE 89 mg/dl (70-220); POTASSIUM 4.2 mmol/L (3.5-5.1); SODIUM 139 mmol/L (135-144)
[2017-08-26] MEDS: ASPIRIN 325 MG TAB PO (08:24)
[2017-08-26] MEDS: FERROUS SULFATE (EC) 325 MG TAB PO ×2 (08:24→20:52)
[2017-08-26] MEDS: HEPARIN 5,000 UNIT/0.5 ML VIAL SC ×2 (08:24→20:50)
[2017-08-26] MEDS: VALPROIC ACID 250 MG CAP PO ×2 (09:00→21:34)
[2017-08-26] MEDS: LISINOPRIL 5 MG TAB PO (09:00)
[2017-08-26] MEDS: QUETIAPINE 25 MG TAB PO ×2 (09:00→20:55)
[2017-08-26] MEDS: BALSAM PERU/CASTOR OIL 60 GM TUBE TOP (12:00)
[2017-08-26] MEDS: traMADol 50 MG TAB PO (15:18)
[2017-08-26] MEDS: EPOETIN 3000 UNITS/1 ML INJ (ESRD) SC (20:48)
[2017-08-26] MEDS: ATORVASTATIN 40 MG TAB PO (20:52)
[2017-08-26] MEDS: ZOLPIDEM 5 MG TAB PO (23:03)
[2017-08-27] MEDS: ALBUTEROL/IPRATROPIUM (NEB) 3 ML AMP HHN ×4 (01:16→20:00)
[2017-08-27] MEDS: ACETYLCYSTEINE 20% 4 ML VIAL NEB ×4 (01:16→20:00)
[2017-08-27] MEDS: PANTOPRAZOLE (EC) 40 MG TAB PO ×2 (06:06→17:23)
[2017-08-27] MEDS: VALPROIC ACID 250 MG CAP PO ×2 (08:54→20:50)
[2017-08-27] MEDS: FERROUS SULFATE (EC) 325 MG TAB PO ×2 (08:54→20:50)
[2017-08-27] MEDS: ASPIRIN 325 MG TAB PO (08:54)
[2017-08-27] MEDS: HEPARIN 5,000 UNIT/0.5 ML VIAL SC ×3 (08:55→22:57)
[2017-08-27] MEDS: QUETIAPINE 25 MG TAB PO ×2 (08:55→09:00)
[2017-08-27] MEDS: LISINOPRIL 5 MG TAB PO (09:00)
[2017-08-27] MEDS: BALSAM PERU/CASTOR OIL 60 GM TUBE TOP (09:25)
[2017-08-27 15:25] LABS: ADD MAN DIFF? NO
[2017-08-27 15:27] LABS: WHITE BLOOD COUNT 7.4 10^3/ul (4.8-10.8)
[2017-08-27 15:27] LABS: ABNORMAL IP MESSAGE 1; BASOPHIL # 0.1 10^3/ul (0.0-0.1); BASOPHILS % 0.7 % (0.0-2.0); EOSINOPHILS # 0.5 10^3/ul (0.0-0.5); HEMATOCRIT 31.5 % (42.0-52.0); HEMOGLOBIN 10.2 g/dl (14.0-18.0); LYMPHOCYTES # 0.7 10^3/ul (0.8-2.9); LYMPHOCYTES % 9.2 % (15.0-51.0); MEAN CORPUSCULAR HEMOGLOBIN 30.3 pg (29.0-33.0); MEAN CORPUSCULAR HGB CONC 32.4 g/dl (32.0-37.0); MEAN CORPUSCULAR VOLUME 93.5 fl (82.0-101.0); MEAN PLATELET VOLUME 9.3 fl (7.4-10.4); MONOCYTE # 1.6 10^3/ul (0.3-0.9); MONOCYTES % 21.3 % (0.0-11.0); NEUTROPHIL # 4.5 10^3/ul (1.6-7.5); NEUTROPHILS % 60.2 % (39.0-77.0); PLATELET COUNT 168 10^3/UL (140-415); POSITIVE DIFF @See below; RED BLOOD COUNT 3.37 10^6/ul (4.70-6.10); RED CELL DISTRIBUTION WIDTH 15.6 % (11.5-14.5)
[2017-08-27 15:46] LABS: ANION GAP 18 (8-16); BLOOD UREA NITROGEN 66 mg/dl (7-20); CALCIUM 8.7 mg/dl (8.4-10.2); CARBON DIOXIDE 27 mmol/L (21-31); CHLORIDE 97 mmol/L (97-110); CREATININE 8.23 mg/dl (0.61-1.24); GLUCOSE 100 mg/dl (70-220); POTASSIUM 4.8 mmol/L (3.5-5.1); SODIUM 137 mmol/L (135-144)
[2017-08-27] MEDS: ATORVASTATIN 40 MG TAB PO (20:50)
[2017-08-27] MEDS: ZOLPIDEM 5 MG TAB PO (22:57)
[2017-08-28] MEDS: ALBUTEROL/IPRATROPIUM (NEB) 3 ML AMP HHN ×5 (01:30→19:59)
[2017-08-28] MEDS: ACETYLCYSTEINE 20% 4 ML VIAL NEB ×4 (01:30→20:00)
[2017-08-28] MEDS: traMADol 50 MG TAB PO ×2 (04:22→20:18)
[2017-08-28] MEDS: PANTOPRAZOLE (EC) 40 MG TAB PO ×2 (06:38→20:15)
[2017-08-28 06:59] LABS: ABNORMAL IP MESSAGE 1; ADD MAN DIFF? NO; BASOPHILS % 0.5 % (0.0-2.0); EOSINOPHILS # 0.6 10^3/ul (0.0-0.5); EOSINOPHILS % 7.9 % (0.0-7.0); HEMATOCRIT 29.8 % (42.0-52.0); HEMOGLOBIN 9.6 g/dl (14.0-18.0); LYMPHOCYTES # 0.8 10^3/ul (0.8-2.9); LYMPHOCYTES % 9.6 % (15.0-51.0); MEAN CORPUSCULAR HEMOGLOBIN 30.2 pg (29.0-33.0); MEAN CORPUSCULAR HGB CONC 32.2 g/dl (32.0-37.0); MEAN CORPUSCULAR VOLUME 93.7 fl (82.0-101.0); MEAN PLATELET VOLUME 9.5 fl (7.4-10.4); MONOCYTE # 1.9 10^3/ul (0.3-0.9); MONOCYTES % 24.3 % (0.0-11.0); NEUTROPHIL # 4.5 10^3/ul (1.6-7.5); NEUTROPHILS % 56.2 % (39.0-77.0); PLATELET COUNT 156 10^3/UL (140-415); POSITIVE DIFF @See below; RED BLOOD COUNT 3.18 10^6/ul (4.70-6.10); RED CELL DISTRIBUTION WIDTH 15.1 % (11.5-14.5)
[2017-08-28 07:34] LABS: ANION GAP 20 (8-16); BLOOD UREA NITROGEN 75 mg/dl (7-20); CALCIUM 8.5 mg/dl (8.4-10.2); CARBON DIOXIDE 23 mmol/L (21-31); CHLORIDE 99 mmol/L (97-110); CREATININE 8.99 mg/dl (0.61-1.24); GLUCOSE 88 mg/dl (70-220); POTASSIUM 4.6 mmol/L (3.5-5.1); SODIUM 137 mmol/L (135-144)
[2017-08-28] MEDS: HEPARIN 5,000 UNIT/0.5 ML VIAL SC ×3 (09:00→20:29)
[2017-08-28] MEDS: BALSAM PERU/CASTOR OIL 60 GM TUBE TOP (09:49)
[2017-08-28] MEDS: VALPROIC ACID 250 MG CAP PO ×2 (09:50→20:17)
[2017-08-28] MEDS: ASPIRIN 325 MG TAB PO (09:50)
[2017-08-28] MEDS: LISINOPRIL 5 MG TAB PO (09:51)
[2017-08-28] MEDS: FERROUS SULFATE (EC) 325 MG TAB PO ×2 (09:51→20:17)
[2017-08-28] MEDS: EPOETIN 3000 UNITS/1 ML INJ (ESRD) SC ×2 (20:15→20:29)
[2017-08-28] MEDS: ATORVASTATIN 40 MG TAB PO (20:16)
[2017-08-28] MEDS: ZOLPIDEM 5 MG TAB PO (22:40)
[2017-08-29] MEDS: ALBUTEROL/IPRATROPIUM (NEB) 3 ML AMP HHN ×4 (01:07→20:00)
[2017-08-29] MEDS: ACETYLCYSTEINE 20% 4 ML VIAL NEB ×4 (01:08→20:00)
[2017-08-29] MEDS: PANTOPRAZOLE (EC) 40 MG TAB PO ×2 (06:00→18:21)
[2017-08-29] MEDS: HEPARIN 5,000 UNIT/0.5 ML VIAL SC ×2 (09:00→21:00)
[2017-08-29] MEDS: ASPIRIN 325 MG TAB PO (09:38)
[2017-08-29] MEDS: FERROUS SULFATE (EC) 325 MG TAB PO ×2 (09:39→20:59)
[2017-08-29] MEDS: VALPROIC ACID 250 MG CAP PO ×2 (09:39→20:59)
[2017-08-29] MEDS: LISINOPRIL 5 MG TAB PO (09:39)
[2017-08-29] MEDS: BALSAM PERU/CASTOR OIL 60 GM TUBE TOP (09:40)
[2017-08-29] MEDS: ATORVASTATIN 40 MG TAB PO (20:59)
[2017-08-30] MEDS: ZOLPIDEM 5 MG TAB PO ×2 (00:33→23:36)
[2017-08-30] MEDS: ACETYLCYSTEINE 20% 4 ML VIAL NEB ×4 (01:05→19:26)
[2017-08-30] MEDS: ALBUTEROL/IPRATROPIUM (NEB) 3 ML AMP HHN ×4 (01:05→19:26)
[2017-08-30] MEDS: ALPRAZOLAM 0.25 MG TAB PO (03:21)
[2017-08-30] MEDS: PANTOPRAZOLE (EC) 40 MG TAB PO ×2 (06:12→18:41)
[2017-08-30 07:27] LABS: ADD MAN DIFF? NO
[2017-08-30 07:36] LABS: WHITE BLOOD COUNT 9.3 10^3/ul (4.8-10.8)
[2017-08-30 07:36] LABS: ABNORMAL IP MESSAGE 1; BASOPHIL # 0.1 10^3/ul (0.0-0.1); BASOPHILS % 0.6 % (0.0-2.0); EOSINOPHILS # 0.8 10^3/ul (0.0-0.5); EOSINOPHILS % 8.3 % (0.0-7.0); HEMATOCRIT 30.5 % (42.0-52.0); HEMOGLOBIN 9.6 g/dl (14.0-18.0); LYMPHOCYTES # 0.8 10^3/ul (0.8-2.9); LYMPHOCYTES % 8.9 % (15.0-51.0); MEAN CORPUSCULAR HEMOGLOBIN 29.8 pg (29.0-33.0); MEAN CORPUSCULAR HGB CONC 31.5 g/dl (32.0-37.0); MEAN CORPUSCULAR VOLUME 94.7 fl (82.0-101.0); MEAN PLATELET VOLUME 9.4 fl (7.4-10.4); MONOCYTE # 1.6 10^3/ul (0.3-0.9); NEUTROPHILS % 64.3 % (39.0-77.0); PLATELET COUNT 136 10^3/UL (140-415); POSITIVE DIFF @See below; RED BLOOD COUNT 3.22 10^6/ul (4.70-6.10); RED CELL DISTRIBUTION WIDTH 15.2 % (11.5-14.5)
[2017-08-30 07:58] LABS: ANION GAP 21 (8-16); BLOOD UREA NITROGEN 76 mg/dl (7-20); CALCIUM 8.4 mg/dl (8.4-10.2); CARBON DIOXIDE 22 mmol/L (21-31); CHLORIDE 102 mmol/L (97-110); CREATININE 8.36 mg/dl (0.61-1.24); GLUCOSE 82 mg/dl (70-220); POTASSIUM 4.9 mmol/L (3.5-5.1); SODIUM 140 mmol/L (135-144)
[2017-08-30] MEDS: HEPARIN 5,000 UNIT/0.5 ML VIAL SC ×2 (09:00→20:21)
[2017-08-30] MEDS: ASPIRIN 325 MG TAB PO (10:27)
[2017-08-30] MEDS: LISINOPRIL 5 MG TAB PO (10:27)
[2017-08-30] MEDS: FERROUS SULFATE (EC) 325 MG TAB PO ×2 (10:27→20:13)
[2017-08-30] MEDS: VALPROIC ACID 250 MG CAP PO ×2 (10:27→20:15)
[2017-08-30] MEDS: BALSAM PERU/CASTOR OIL 60 GM TUBE TOP (10:28)
[2017-08-30] MEDS: ATORVASTATIN 40 MG TAB PO (20:13)
[2017-08-31] MEDS: ALBUTEROL/IPRATROPIUM (NEB) 3 ML AMP HHN ×4 (01:17→20:11)
[2017-08-31] MEDS: ACETYLCYSTEINE 20% 4 ML VIAL NEB ×4 (01:17→20:00)
[2017-08-31] MEDS: PANTOPRAZOLE (EC) 40 MG TAB PO ×2 (05:42→17:39)
[2017-08-31 06:13] LABS: ADD MAN DIFF? NO
[2017-08-31 06:30] LABS: BASOPHIL # 0.1 10^3/ul (0.0-0.1); BASOPHILS % 0.5 % (0.0-2.0); EOSINOPHILS # 0.9 10^3/ul (0.0-0.5); EOSINOPHILS % 9.5 % (0.0-7.0); HEMATOCRIT 29.5 % (42.0-52.0); HEMOGLOBIN 9.4 g/dl (14.0-18.0); LYMPHOCYTES # 0.8 10^3/ul (0.8-2.9); LYMPHOCYTES % 8.9 % (15.0-51.0); MEAN CORPUSCULAR HGB CONC 31.9 g/dl (32.0-37.0); MEAN CORPUSCULAR VOLUME 94.2 fl (82.0-101.0); MEAN PLATELET VOLUME 9.7 fl (7.4-10.4); MONOCYTE # 1.1 10^3/ul (0.3-0.9); MONOCYTES % 12.2 % (0.0-11.0); NEUTROPHIL # 6.2 10^3/ul (1.6-7.5); NEUTROPHILS % 68.2 % (39.0-77.0); PLATELET COUNT 120 10^3/UL (140-415); RED BLOOD COUNT 3.13 10^6/ul (4.70-6.10); RED CELL DISTRIBUTION WIDTH 15.3 % (11.5-14.5)
[2017-08-31 06:30] LABS: WHITE BLOOD COUNT 9.1 10^3/ul (4.8-10.8)
[2017-08-31 06:34] LABS: ANION GAP 22 (8-16); BLOOD UREA NITROGEN 99 mg/dl (7-20); CALCIUM 8.5 mg/dl (8.4-10.2); CARBON DIOXIDE 21 mmol/L (21-31); CHLORIDE 102 mmol/L (97-110); CREATININE 9.41 mg/dl (0.61-1.24); GLUCOSE 104 mg/dl (70-220); POTASSIUM 5.3 mmol/L (3.5-5.1); SODIUM 140 mmol/L (135-144)
[2017-08-31 08:47] LABS: MAGNESIUM 1.5 mg/dl (1.7-2.5)
[2017-08-31 08:47] LABS: PHOSPHORUS 6.5 mg/dl (2.5-4.9)
[2017-08-31] MEDS: HEPARIN 5,000 UNIT/0.5 ML VIAL SC ×2 (09:00→21:03)
[2017-08-31] MEDS: LISINOPRIL 5 MG TAB PO (09:00)
[2017-08-31] MEDS: ASPIRIN 325 MG TAB PO (09:32)
[2017-08-31] MEDS: FERROUS SULFATE (EC) 325 MG TAB PO ×2 (09:33→20:57)
[2017-08-31] MEDS: VALPROIC ACID 250 MG CAP PO ×2 (09:33→20:58)
[2017-08-31] MEDS: BALSAM PERU/CASTOR OIL 60 GM TUBE TOP (09:39)
[2017-08-31] MEDS: MAGNESIUM SULFATE 2 GM/50 ML 50 ML IVPB (12:15)
[2017-08-31] MEDS: EPOETIN 3000 UNITS/1 ML INJ (ESRD) SC (17:36)
[2017-08-31] MEDS: ATORVASTATIN 40 MG TAB PO (20:57)
[2017-08-31] MEDS: ALPRAZOLAM 0.25 MG TAB PO (22:43)
[2017-09-01] MEDS: ALBUTEROL/IPRATROPIUM (NEB) 3 ML AMP HHN ×4 (01:52→20:24)
[2017-09-01] MEDS: ACETYLCYSTEINE 20% 4 ML VIAL NEB ×4 (01:52→20:00)
[2017-09-01] MEDS: PANTOPRAZOLE (EC) 40 MG TAB PO ×3 (05:59→18:00)
[2017-09-01] MEDS: ALPRAZOLAM 0.25 MG TAB PO ×2 (07:30→21:40)
[2017-09-01] MEDS: HEPARIN 5,000 UNIT/0.5 ML VIAL SC ×2 (09:00→20:50)
[2017-09-01] MEDS: FERROUS SULFATE (EC) 325 MG TAB PO ×2 (09:13→20:50)
[2017-09-01] MEDS: ASPIRIN 325 MG TAB PO (09:14)
[2017-09-01] MEDS: VALPROIC ACID 250 MG CAP PO ×2 (09:14→20:50)
[2017-09-01] MEDS: LISINOPRIL 5 MG TAB PO (09:15)
[2017-09-01] MEDS: BALSAM PERU/CASTOR OIL 60 GM TUBE TOP (09:15)
[2017-09-01 09:18] LABS: ADD MAN DIFF? NO
[2017-09-01 09:21] LABS: BASOPHIL # 0.1 10^3/ul (0.0-0.1); BASOPHILS % 0.8 % (0.0-2.0); EOSINOPHILS # 1.1 10^3/ul (0.0-0.5); EOSINOPHILS % 10.2 % (0.0-7.0); HEMATOCRIT 32.2 % (42.0-52.0); HEMOGLOBIN 10.5 g/dl (14.0-18.0); LYMPHOCYTES # 0.7 10^3/ul (0.8-2.9); LYMPHOCYTES % 6.4 % (15.0-51.0); MEAN CORPUSCULAR HEMOGLOBIN 30.3 pg (29.0-33.0); MEAN CORPUSCULAR HGB CONC 32.6 g/dl (32.0-37.0); MEAN CORPUSCULAR VOLUME 92.8 fl (82.0-101.0); MEAN PLATELET VOLUME 9.4 fl (7.4-10.4); MONOCYTE # 1.4 10^3/ul (0.3-0.9); NEUTROPHIL # 7.7 10^3/ul (1.6-7.5); NEUTROPHILS % 69.4 % (39.0-77.0); PLATELET COUNT 119 10^3/UL (140-415); RED BLOOD COUNT 3.47 10^6/ul (4.70-6.10); RED CELL DISTRIBUTION WIDTH 15.6 % (11.5-14.5)
[2017-09-01 09:51] LABS: ANION GAP 22 (8-16); BLOOD UREA NITROGEN 90 mg/dl (7-20); CALCIUM 8.7 mg/dl (8.4-10.2); CARBON DIOXIDE 22 mmol/L (21-31); CHLORIDE 100 mmol/L (97-110); CREATININE 9.02 mg/dl (0.61-1.24); GLUCOSE 90 mg/dl (70-220); POTASSIUM 4.8 mmol/L (3.5-5.1); SODIUM 139 mmol/L (135-144)
[2017-09-01 09:52] LABS: PHOSPHORUS 7.1 mg/dl (2.5-4.9)
[2017-09-01 09:52] LABS: MAGNESIUM 1.7 mg/dl (1.7-2.5)
[2017-09-01 09:56] LABS: MONOCYTES % 12.7 % (0.0-11.0)
[2017-09-01] MEDS: ATORVASTATIN 40 MG TAB PO (20:50)
[2017-09-01] MEDS: ZOLPIDEM 5 MG TAB PO (23:20)
[2017-09-02] MEDS: ACETYLCYSTEINE 20% 4 ML VIAL NEB ×4 (02:00→19:48)
[2017-09-02] MEDS: ALBUTEROL/IPRATROPIUM (NEB) 3 ML AMP HHN ×5 (02:00→19:46)
[2017-09-02] MEDS: PANTOPRAZOLE (EC) 40 MG TAB PO ×2 (05:49→17:17)
[2017-09-02 06:17] LABS: ADD MAN DIFF? NO; HAAIG REFLEX REFLEX FILED
[2017-09-02 06:31] LABS: ABNORMAL IP MESSAGE 1; BASOPHILS % 0.5 % (0.0-2.0); EOSINOPHILS # 0.9 10^3/ul (0.0-0.5); EOSINOPHILS % 13.9 % (0.0-7.0); HEMATOCRIT 28.1 % (42.0-52.0); LYMPHOCYTES # 0.7 10^3/ul (0.8-2.9); MEAN CORPUSCULAR HEMOGLOBIN 30.1 pg (29.0-33.0); MEAN PLATELET VOLUME 9.8 fl (7.4-10.4); MONOCYTE # 0.9 10^3/ul (0.3-0.9); MONOCYTES % 13.2 % (0.0-11.0); NEUTROPHIL # 3.9 10^3/ul (1.6-7.5); NEUTROPHILS % 60.8 % (39.0-77.0); PLATELET COUNT 83 10^3/UL (140-415); POSITIVE DIFF @See below; RED BLOOD COUNT 2.99 10^6/ul (4.70-6.10); RED CELL DISTRIBUTION WIDTH 15.7 % (11.5-14.5)
[2017-09-02 06:31] LABS: WHITE BLOOD COUNT 6.5 10^3/ul (4.8-10.8)
[2017-09-02 07:19] LABS: ANION GAP 23 (8-16); BLOOD UREA NITROGEN 103 mg/dl (7-20); CALCIUM 8.4 mg/dl (8.4-10.2); CARBON DIOXIDE 20 mmol/L (21-31); CHLORIDE 101 mmol/L (97-110); GLUCOSE 73 mg/dl (70-220); POTASSIUM 4.8 mmol/L (3.5-5.1); SODIUM 139 mmol/L (135-144)
[2017-09-02 07:23] LABS: MAGNESIUM 1.7 mg/dl (1.7-2.5)
[2017-09-02 07:23] LABS: PHOSPHORUS 8.8 mg/dl (2.5-4.9)
[2017-09-02 07:26] LABS: HEPATITIS B SURFACE ANTIGEN NEGATIVE (NEGATIVE)
[2017-09-02 07:44] LABS: HEPATITIS B CORE ANTIBODY REACTIVE (NEGATIVE); HEPATITIS C VIRAL ANTIBODY NEGATIVE (NEGATIVE)
[2017-09-02] MEDS: HEPARIN 5,000 UNIT/0.5 ML VIAL SC ×2 (09:00→20:33)
[2017-09-02] MEDS: BALSAM PERU/CASTOR OIL 60 GM TUBE TOP (09:00)
[2017-09-02] MEDS: FERROUS SULFATE (EC) 325 MG TAB PO ×2 (09:01→20:31)
[2017-09-02] MEDS: LISINOPRIL 5 MG TAB PO (09:01)
[2017-09-02] MEDS: ASPIRIN 325 MG TAB PO (09:01)
[2017-09-02] MEDS: VALPROIC ACID 250 MG CAP PO ×2 (09:02→20:31)
[2017-09-02] MEDS: ALPRAZOLAM 0.25 MG TAB PO ×2 (13:24→17:19)
[2017-09-02] MEDS: EPOETIN 3000 UNITS/1 ML INJ (ESRD) SC (17:21)
[2017-09-02] MEDS: ATORVASTATIN 40 MG TAB PO (20:31)
[2017-09-03] MEDS: ALBUTEROL/IPRATROPIUM (NEB) 3 ML AMP HHN ×4 (02:00→19:46)
[2017-09-03] MEDS: ACETYLCYSTEINE 20% 4 ML VIAL NEB ×4 (02:00→19:46)
[2017-09-03] MEDS: PANTOPRAZOLE (EC) 40 MG TAB PO ×2 (05:20→18:40)
[2017-09-03] MEDS: ASPIRIN 325 MG TAB PO (08:22)
[2017-09-03] MEDS: LISINOPRIL 5 MG TAB PO (08:23)
[2017-09-03] MEDS: FERROUS SULFATE (EC) 325 MG TAB PO ×2 (08:23→21:01)
[2017-09-03] MEDS: VALPROIC ACID 250 MG CAP PO ×2 (08:24→21:01)
[2017-09-03] MEDS: HEPARIN 5,000 UNIT/0.5 ML VIAL SC ×2 (08:25→21:00)
[2017-09-03] MEDS: BALSAM PERU/CASTOR OIL 60 GM TUBE TOP (08:26)
[2017-09-03] MEDS: ATORVASTATIN 40 MG TAB PO (21:00)
[2017-09-03] MEDS: ALPRAZOLAM 0.25 MG TAB PO (21:09)
[2017-09-03] MEDS: ZOLPIDEM 5 MG TAB PO ×2 (22:57)
[2017-09-04] MEDS: ALBUTEROL/IPRATROPIUM (NEB) 3 ML AMP HHN ×4 (01:46→19:17)
[2017-09-04] MEDS: ACETYLCYSTEINE 20% 4 ML VIAL NEB ×4 (01:46→19:20)
[2017-09-04] MEDS: LISINOPRIL 5 MG TAB PO (08:59)
[2017-09-04] MEDS: BALSAM PERU/CASTOR OIL 60 GM TUBE TOP (09:00)
[2017-09-04] MEDS: HEPARIN 5,000 UNIT/0.5 ML VIAL SC ×2 (09:00→21:00)
[2017-09-04] MEDS: PANTOPRAZOLE (EC) 40 MG TAB PO ×2 (09:06→17:31)
[2017-09-04] MEDS: VALPROIC ACID 250 MG CAP PO ×2 (09:06→21:12)
[2017-09-04] MEDS: ASPIRIN 325 MG TAB PO (09:06)
[2017-09-04] MEDS: FERROUS SULFATE (EC) 325 MG TAB PO ×2 (09:07→21:11)
[2017-09-04] MEDS: ONDANSETRON 4 MG INJ IV (16:29)
[2017-09-04] MEDS: EPOETIN 3000 UNITS/1 ML INJ (ESRD) SC (17:30)
[2017-09-04] MEDS: ATORVASTATIN 40 MG TAB PO (21:11)
[2017-09-04] MEDS: ZOLPIDEM 5 MG TAB PO (23:50)
[2017-09-05] MEDS: ACETYLCYSTEINE 20% 4 ML VIAL NEB ×4 (02:00→19:40)
[2017-09-05] MEDS: ALBUTEROL/IPRATROPIUM (NEB) 3 ML AMP HHN ×4 (02:00→19:32)
[2017-09-05] MEDS: PANTOPRAZOLE (EC) 40 MG TAB PO ×2 (05:35→17:35)
[2017-09-05] MEDS: ASPIRIN 325 MG TAB PO (08:42)
[2017-09-05] MEDS: FERROUS SULFATE (EC) 325 MG TAB PO ×2 (08:42→20:50)
[2017-09-05] MEDS: VALPROIC ACID 250 MG CAP PO ×2 (08:42→20:50)
[2017-09-05] MEDS: LISINOPRIL 5 MG TAB PO (08:42)
[2017-09-05] MEDS: BALSAM PERU/CASTOR OIL 60 GM TUBE TOP (08:43)
[2017-09-05] MEDS: HEPARIN 5,000 UNIT/0.5 ML VIAL SC ×2 (08:51→20:58)
[2017-09-05] MEDS: ATORVASTATIN 40 MG TAB PO (20:50)
[2017-09-05] MEDS: ALPRAZOLAM 0.25 MG TAB PO (22:44)
[2017-09-06] MEDS: ZOLPIDEM 5 MG TAB PO ×2 (00:32→23:36)
[2017-09-06] MEDS: ALBUTEROL/IPRATROPIUM (NEB) 3 ML AMP HHN ×4 (02:00→19:40)
[2017-09-06] MEDS: ACETYLCYSTEINE 20% 4 ML VIAL NEB ×4 (02:00→19:41)
[2017-09-06] MEDS: PANTOPRAZOLE (EC) 40 MG TAB PO ×2 (04:46→17:52)
[2017-09-06] MEDS: ALPRAZOLAM 0.25 MG TAB PO (04:46)
[2017-09-06] MEDS: hydrALAzine 20 MG INJ IV (04:55)
[2017-09-06] MEDS: FERROUS SULFATE (EC) 325 MG TAB PO ×2 (08:50→20:45)
[2017-09-06] MEDS: VALPROIC ACID 250 MG CAP PO ×2 (08:51→20:45)
[2017-09-06] MEDS: LISINOPRIL 5 MG TAB PO (08:52)
[2017-09-06] MEDS: ASPIRIN 325 MG TAB PO (08:55)
[2017-09-06] MEDS: HEPARIN 5,000 UNIT/0.5 ML VIAL SC ×2 (08:58→20:50)
[2017-09-06] MEDS: BALSAM PERU/CASTOR OIL 60 GM TUBE TOP (09:00)
[2017-09-06 11:15] LABS: ADD MAN DIFF? NO
[2017-09-06 11:36] LABS: WHITE BLOOD COUNT 7.7 10^3/ul (4.8-10.8)
[2017-09-06 11:36] LABS: ABNORMAL IP MESSAGE 1; BASOPHILS % 0.5 % (0.0-2.0); EOSINOPHILS # 1.3 10^3/ul (0.0-0.5); EOSINOPHILS % 17.4 % (0.0-7.0); HEMATOCRIT 27.9 % (42.0-52.0); HEMOGLOBIN 8.6 g/dl (14.0-18.0); LYMPHOCYTES # 0.8 10^3/ul (0.8-2.9); LYMPHOCYTES % 9.8 % (15.0-51.0); MEAN CORPUSCULAR HEMOGLOBIN 29.7 pg (29.0-33.0); MEAN CORPUSCULAR HGB CONC 30.8 g/dl (32.0-37.0); MEAN CORPUSCULAR VOLUME 96.2 fl (82.0-101.0); MEAN PLATELET VOLUME 10.3 fl (7.4-10.4); MONOCYTE # 0.9 10^3/ul (0.3-0.9); MONOCYTES % 12.1 % (0.0-11.0); NEUTROPHIL # 4.6 10^3/ul (1.6-7.5); NEUTROPHILS % 59.8 % (39.0-77.0); PLATELET COUNT 55 10^3/UL (140-415); POSITIVE DIFF @See below; RED CELL DISTRIBUTION WIDTH 15.7 % (11.5-14.5)
[2017-09-06 11:52] LABS: MAGNESIUM 1.6 mg/dl (1.7-2.5)
[2017-09-06 11:52] LABS: PHOSPHORUS 6.7 mg/dl (2.5-4.9)
[2017-09-06 12:03] LABS: ANION GAP 21 (8-16); BLOOD UREA NITROGEN 76 mg/dl (7-20); CALCIUM 7.6 mg/dl (8.4-10.2); CARBON DIOXIDE 22 mmol/L (21-31); CHLORIDE 102 mmol/L (97-110); CREATININE 8.46 mg/dl (0.61-1.24); GLUCOSE 92 mg/dl (70-220); POTASSIUM 4.2 mmol/L (3.5-5.1); SODIUM 141 mmol/L (135-144)
[2017-09-06] MEDS: ONDANSETRON 4 MG INJ IV (16:22)
[2017-09-06] MEDS: ATORVASTATIN 40 MG TAB PO (20:45)
[2017-09-07] MEDS: ACETYLCYSTEINE 20% 4 ML VIAL NEB ×4 (02:00→19:50)
[2017-09-07] MEDS: ALBUTEROL/IPRATROPIUM (NEB) 3 ML AMP HHN ×4 (02:00→19:49)
[2017-09-07] MEDS: PANTOPRAZOLE (EC) 40 MG TAB PO ×2 (05:41→18:00)
[2017-09-07] MEDS: LISINOPRIL 5 MG TAB PO (08:35)
[2017-09-07] MEDS: BALSAM PERU/CASTOR OIL 60 GM TUBE TOP (09:00)
[2017-09-07] MEDS: HEPARIN 5,000 UNIT/0.5 ML VIAL SC ×2 (09:00→21:00)
[2017-09-07] MEDS: FERROUS SULFATE (EC) 325 MG TAB PO ×2 (09:29→21:00)
[2017-09-07] MEDS: ASPIRIN 325 MG TAB PO (09:29)
[2017-09-07] MEDS: VALPROIC ACID 250 MG CAP PO ×2 (09:30→21:00)
[2017-09-07] MEDS: EPOETIN 3000 UNITS/1 ML INJ (ESRD) SC (17:19)
[2017-09-07] MEDS: ATORVASTATIN 40 MG TAB PO (21:00)
[2017-09-07] MEDS: ALPRAZOLAM 0.25 MG TAB PO (22:20)
[2017-09-07] MEDS: ZOLPIDEM 5 MG TAB PO (23:16)
[2017-09-08] MEDS: ACETYLCYSTEINE 20% 4 ML VIAL NEB ×4 (02:00→20:00)
[2017-09-08] MEDS: ALBUTEROL/IPRATROPIUM (NEB) 3 ML AMP HHN ×3 (02:00→13:34)
[2017-09-08] MEDS: PANTOPRAZOLE (EC) 40 MG TAB PO ×2 (06:00→18:03)
[2017-09-08] MEDS: HEPARIN 5,000 UNIT/0.5 ML VIAL SC ×2 (09:00→21:39)
[2017-09-08] MEDS: FERROUS SULFATE (EC) 325 MG TAB PO ×2 (09:08→21:36)
[2017-09-08] MEDS: ASPIRIN 325 MG TAB PO (09:08)
[2017-09-08] MEDS: LISINOPRIL 5 MG TAB PO (09:09)
[2017-09-08] MEDS: VALPROIC ACID 250 MG CAP PO ×2 (09:09→21:37)
[2017-09-08] MEDS: BALSAM PERU/CASTOR OIL 60 GM TUBE TOP (09:11)
[2017-09-08 17:00] LABS: MAGNESIUM 1.6 mg/dl (1.7-2.5)
[2017-09-08 17:05] LABS: ANION GAP 18 (8-16); BLOOD UREA NITROGEN 67 mg/dl (7-20); CALCIUM 7.9 mg/dl (8.4-10.2); CARBON DIOXIDE 24 mmol/L (21-31); CHLORIDE 103 mmol/L (97-110); CREATININE 7.22 mg/dl (0.61-1.24); GLUCOSE 76 mg/dl (70-220); POTASSIUM 3.7 mmol/L (3.5-5.1); SODIUM 141 mmol/L (135-144)
[2017-09-08] MEDS: LEVALBUTEROL (NEB) 0.63 MG/3 ML AMP HHN (20:49)
[2017-09-08] MEDS: ATORVASTATIN 40 MG TAB PO (21:35)
[2017-09-08] MEDS: ZOLPIDEM 5 MG TAB PO (23:37)
[2017-09-09] MEDS: ACETYLCYSTEINE 20% 4 ML VIAL NEB ×3 (01:55→14:00)
[2017-09-09] MEDS: PANTOPRAZOLE (EC) 40 MG TAB PO ×2 (05:57→16:56)
[2017-09-09] MEDS: LEVALBUTEROL (NEB) 0.63 MG/3 ML AMP HHN ×2 (07:55→21:27)
[2017-09-09] MEDS: BALSAM PERU/CASTOR OIL 60 GM TUBE TOP (09:00)
[2017-09-09] MEDS: HEPARIN 5,000 UNIT/0.5 ML VIAL SC ×3 (09:00→21:00)
[2017-09-09] MEDS: VALPROIC ACID 250 MG CAP PO ×2 (09:09→21:12)
[2017-09-09] MEDS: ASPIRIN 325 MG TAB PO (09:09)
[2017-09-09] MEDS: FERROUS SULFATE (EC) 325 MG TAB PO ×2 (09:09→21:13)
[2017-09-09] MEDS: LISINOPRIL 5 MG TAB PO (09:09)
[2017-09-09 15:35] LABS: ANION GAP 16 (8-16); BLOOD UREA NITROGEN 42 mg/dl (7-20); CALCIUM 9.1 mg/dl (8.4-10.2); CARBON DIOXIDE 28 mmol/L (21-31); CHLORIDE 98 mmol/L (97-110); CREATININE 5.22 mg/dl (0.61-1.24); GLUCOSE 82 mg/dl (70-220); POTASSIUM 3.4 mmol/L (3.5-5.1); SODIUM 139 mmol/L (135-144)
[2017-09-09] MEDS: EPOETIN 3000 UNITS/1 ML INJ (ESRD) SC (16:56)
[2017-09-09] MEDS: ALPRAZOLAM 0.25 MG TAB PO ×2 (19:47→21:59)
[2017-09-09] MEDS: hydrALAzine 20 MG INJ IV (19:48)
[2017-09-09] MEDS: ATORVASTATIN 40 MG TAB PO (21:13)
[2017-09-09] MEDS: ZOLPIDEM 5 MG TAB PO (23:29)
[2017-09-09] MEDS: traMADol 50 MG TAB PO (23:29)
[2017-09-10] MEDS: LISINOPRIL 10 MG TAB PO ×3 (02:00→21:04)
[2017-09-10] MEDS: PANTOPRAZOLE (EC) 40 MG TAB PO ×2 (05:43→18:33)
[2017-09-10] MEDS: HEPARIN 5,000 UNIT/0.5 ML VIAL SC ×2 (09:00→21:13)
[2017-09-10] MEDS: BALSAM PERU/CASTOR OIL 60 GM TUBE TOP (09:00)
[2017-09-10] MEDS: ASPIRIN 325 MG TAB PO (09:20)
[2017-09-10] MEDS: VALPROIC ACID 250 MG CAP PO ×2 (09:21→21:05)
[2017-09-10] MEDS: FERROUS SULFATE (EC) 325 MG TAB PO ×2 (09:21→21:05)
[2017-09-10 10:59] LABS: ANION GAP 18 (8-16); BLOOD UREA NITROGEN 56 mg/dl (7-20); CALCIUM 8.4 mg/dl (8.4-10.2); CARBON DIOXIDE 27 mmol/L (21-31); CHLORIDE 101 mmol/L (97-110); CREATININE 7.08 mg/dl (0.61-1.24); GLUCOSE 79 mg/dl (70-220); POTASSIUM 3.8 mmol/L (3.5-5.1); SODIUM 142 mmol/L (135-144)
[2017-09-10 18:01] LABS: MAGNESIUM 1.5 mg/dl (1.7-2.5)
[2017-09-10] MEDS: ATORVASTATIN 40 MG TAB PO (21:04)
[2017-09-10] MEDS: ZOLPIDEM 5 MG TAB PO (23:15)
[2017-09-11] MEDS: PANTOPRAZOLE (EC) 40 MG TAB PO ×2 (05:55→17:31)
[2017-09-11] MEDS: ALPRAZOLAM 0.25 MG TAB PO (05:55)
[2017-09-11] MEDS: VALPROIC ACID 250 MG CAP PO ×2 (08:23→20:37)
[2017-09-11] MEDS: FERROUS SULFATE (EC) 325 MG TAB PO ×2 (08:23→20:36)
[2017-09-11] MEDS: ASPIRIN 325 MG TAB PO (08:23)
[2017-09-11] MEDS: LISINOPRIL 10 MG TAB PO ×2 (08:24→20:36)
[2017-09-11] MEDS: BALSAM PERU/CASTOR OIL 60 GM TUBE TOP (08:26)
[2017-09-11] MEDS: HEPARIN 5,000 UNIT/0.5 ML VIAL SC ×2 (08:35→20:44)
[2017-09-11] MEDS: LEVALBUTEROL (NEB) 0.63 MG/3 ML AMP HHN (09:49)
[2017-09-11 12:01] LABS: ADD MAN DIFF? NO
[2017-09-11 12:20] LABS: WHITE BLOOD COUNT 6.2 10^3/ul (4.8-10.8)
[2017-09-11 12:20] LABS: ABNORMAL IP MESSAGE 1; BASOPHILS % 0.3 % (0.0-2.0); EOSINOPHILS # 0.8 10^3/ul (0.0-0.5); HEMATOCRIT 28.5 % (42.0-52.0); LYMPHOCYTES # 0.7 10^3/ul (0.8-2.9); LYMPHOCYTES % 10.4 % (15.0-51.0); MEAN CORPUSCULAR HEMOGLOBIN 29.9 pg (29.0-33.0); MEAN CORPUSCULAR HGB CONC 31.6 g/dl (32.0-37.0); MEAN CORPUSCULAR VOLUME 94.7 fl (82.0-101.0); MONOCYTE # 0.9 10^3/ul (0.3-0.9); MONOCYTES % 14.6 % (0.0-11.0); NEUTROPHIL # 3.9 10^3/ul (1.6-7.5); NEUTROPHILS % 62.4 % (39.0-77.0); PLATELET COUNT 58 10^3/UL (140-415); POSITIVE DIFF @See below; RED BLOOD COUNT 3.01 10^6/ul (4.70-6.10); RED CELL DISTRIBUTION WIDTH 16.7 % (11.5-14.5)
[2017-09-11 12:43] LABS: ANION GAP 20 (8-16); BLOOD UREA NITROGEN 64 mg/dl (7-20); CALCIUM 8.2 mg/dl (8.4-10.2); CARBON DIOXIDE 25 mmol/L (21-31); CHLORIDE 100 mmol/L (97-110); CREATININE 8.05 mg/dl (0.61-1.24); GLUCOSE 76 mg/dl (70-220); POTASSIUM 3.7 mmol/L (3.5-5.1); SODIUM 141 mmol/L (135-144)
[2017-09-11 13:06] LABS: MAGNESIUM 1.5 mg/dl (1.7-2.5)
[2017-09-11] MEDS: MAGNESIUM SULFATE 1 GM/D5W 100 ML IVPB (17:32)
[2017-09-11] MEDS: EPOETIN 3000 UNITS/1 ML INJ (ESRD) SC (17:33)
[2017-09-11] MEDS: ATORVASTATIN 40 MG TAB PO (20:36)
[2017-09-12] MEDS: ZOLPIDEM 5 MG TAB PO (00:10)
[2017-09-12] MEDS: PANTOPRAZOLE (EC) 40 MG TAB PO ×2 (05:29→17:36)
[2017-09-12] MEDS: BALSAM PERU/CASTOR OIL 60 GM TUBE TOP (09:00)
[2017-09-12] MEDS: VALPROIC ACID 250 MG CAP PO ×2 (09:13→20:50)
[2017-09-12] MEDS: ASPIRIN 325 MG TAB PO (09:13)
[2017-09-12] MEDS: FERROUS SULFATE (EC) 325 MG TAB PO ×2 (09:14→20:51)
[2017-09-12] MEDS: LISINOPRIL 10 MG TAB PO ×2 (09:14→20:50)
[2017-09-12] MEDS: HEPARIN 5,000 UNIT/0.5 ML VIAL SC ×2 (09:34→20:58)
[2017-09-12 13:55] LABS: MAGNESIUM 1.8 mg/dl (1.7-2.5)
[2017-09-12 13:57] LABS: ANION GAP 18 (8-16); BLOOD UREA NITROGEN 45 mg/dl (7-20); CALCIUM 8.1 mg/dl (8.4-10.2); CARBON DIOXIDE 25 mmol/L (21-31); CHLORIDE 100 mmol/L (97-110); CREATININE 6.74 mg/dl (0.61-1.24); GLUCOSE 90 mg/dl (70-220); POTASSIUM 3.4 mmol/L (3.5-5.1); SODIUM 140 mmol/L (135-144)
[2017-09-12] MEDS: POTASSIUM CHLORIDE (SR) 20 MEQ TAB PO (17:36)
[2017-09-12] MEDS: ATORVASTATIN 40 MG TAB PO (20:50)
[2017-09-13] MEDS: PANTOPRAZOLE (EC) 40 MG TAB PO ×2 (05:29→18:22)
[2017-09-13 06:36] LABS: ANION GAP 18 (8-16); BLOOD UREA NITROGEN 58 mg/dl (7-20); CARBON DIOXIDE 24 mmol/L (21-31); CHLORIDE 104 mmol/L (97-110); CREATININE 7.98 mg/dl (0.61-1.24); GLUCOSE 77 mg/dl (70-220); POTASSIUM 3.9 mmol/L (3.5-5.1); SODIUM 142 mmol/L (135-144)
[2017-09-13 07:29] LABS: MAGNESIUM 1.7 mg/dl (1.7-2.5)
[2017-09-13] MEDS: FERROUS SULFATE (EC) 325 MG TAB PO ×2 (09:11→20:48)
[2017-09-13] MEDS: LISINOPRIL 10 MG TAB PO ×2 (09:12→20:48)
[2017-09-13] MEDS: VALPROIC ACID 250 MG CAP PO ×2 (09:12→20:47)
[2017-09-13] MEDS: BALSAM PERU/CASTOR OIL 60 GM TUBE TOP (09:13)
[2017-09-13] MEDS: ASPIRIN 325 MG TAB PO (09:13)
[2017-09-13] MEDS: HEPARIN 5,000 UNIT/0.5 ML VIAL SC ×2 (09:20→20:54)
[2017-09-13] MEDS: ATORVASTATIN 40 MG TAB PO (20:48)
[2017-09-14] MEDS: PANTOPRAZOLE (EC) 40 MG TAB PO ×2 (05:59→17:08)
[2017-09-14] MEDS: ASPIRIN 325 MG TAB PO (07:56)
[2017-09-14] MEDS: VALPROIC ACID 250 MG CAP PO ×2 (07:56→20:30)
[2017-09-14] MEDS: FERROUS SULFATE (EC) 325 MG TAB PO ×2 (07:56→20:30)
[2017-09-14] MEDS: BALSAM PERU/CASTOR OIL 60 GM TUBE TOP (07:56)
[2017-09-14] MEDS: LISINOPRIL 10 MG TAB PO ×2 (07:57→20:30)
[2017-09-14] MEDS: HEPARIN 5,000 UNIT/0.5 ML VIAL SC ×2 (08:09→20:31)
[2017-09-14 08:54] LABS: ADD MAN DIFF? NO
[2017-09-14 09:02] LABS: ABNORMAL IP MESSAGE 1; BASOPHILS % 0.4 % (0.0-2.0); EOSINOPHILS # 0.9 10^3/ul (0.0-0.5); EOSINOPHILS % 13.5 % (0.0-7.0); HEMATOCRIT 26.2 % (42.0-52.0); HEMOGLOBIN 8.4 g/dl (14.0-18.0); LYMPHOCYTES # 0.8 10^3/ul (0.8-2.9); MEAN CORPUSCULAR HEMOGLOBIN 30.7 pg (29.0-33.0); MEAN CORPUSCULAR HGB CONC 32.1 g/dl (32.0-37.0); MEAN CORPUSCULAR VOLUME 95.6 fl (82.0-101.0); MEAN PLATELET VOLUME 10.4 fl (7.4-10.4); MONOCYTE # 1.1 10^3/ul (0.3-0.9); MONOCYTES % 15.9 % (0.0-11.0); NEUTROPHILS % 58.9 % (39.0-77.0); PLATELET COUNT 62 10^3/UL (140-415); POSITIVE DIFF @See below; RED BLOOD COUNT 2.74 10^6/ul (4.70-6.10); RED CELL DISTRIBUTION WIDTH 17.7 % (11.5-14.5)
[2017-09-14 09:02] LABS: WHITE BLOOD COUNT 6.8 10^3/ul (4.8-10.8)
[2017-09-14 09:34] LABS: ANION GAP 17 (8-16); BLOOD UREA NITROGEN 71 mg/dl (7-20); CALCIUM 8.1 mg/dl (8.4-10.2); CARBON DIOXIDE 22 mmol/L (21-31); CHLORIDE 102 mmol/L (97-110); CREATININE 8.91 mg/dl (0.61-1.24); GLUCOSE 83 mg/dl (70-220); POTASSIUM 4.2 mmol/L (3.5-5.1); SODIUM 137 mmol/L (135-144)
[2017-09-14 09:57] LABS: MAGNESIUM 1.7 mg/dl (1.7-2.5)
[2017-09-14 09:57] LABS: PHOSPHORUS 5.3 mg/dl (2.5-4.9)
[2017-09-14] MEDS: EPOETIN 3000 UNITS/1 ML INJ (ESRD) SC (17:08)
[2017-09-14] MEDS: ATORVASTATIN 40 MG TAB PO (20:30)
[2017-09-14] MEDS: ALPRAZOLAM 0.25 MG TAB PO (22:53)
[2017-09-15] MEDS: PANTOPRAZOLE (EC) 40 MG TAB PO ×2 (05:40→17:44)
[2017-09-15] MEDS: VALPROIC ACID 250 MG CAP PO ×2 (07:59→20:55)
[2017-09-15] MEDS: ASPIRIN 325 MG TAB PO (07:59)
[2017-09-15] MEDS: FERROUS SULFATE (EC) 325 MG TAB PO ×2 (07:59→20:55)
[2017-09-15] MEDS: LISINOPRIL 10 MG TAB PO ×2 (07:59→20:55)
[2017-09-15] MEDS: BALSAM PERU/CASTOR OIL 60 GM TUBE TOP (08:00)
[2017-09-15] MEDS: HEPARIN 5,000 UNIT/0.5 ML VIAL SC ×2 (08:33→21:00)
[2017-09-15] MEDS: ATORVASTATIN 40 MG TAB PO (20:57)
[2017-09-16] MEDS: PANTOPRAZOLE (EC) 40 MG TAB PO (06:00)
== END 2017-09-16 06:40 | disposition home health service (06) | DRG 233 ==
LOC: MS4 07-26 19:11 → ICU 07-31 03:18 → TEL 08-14 13:37 → PP2 08-22 00:01 → MS2 08-30 00:05 → E/R 01:11 → MS4 08-01 13:34 → ICU 06:00
PROC: 021109W Bypass Coronary Artery, Two Arteries from Aorta with Autologous Venous Tissue, Open Approach (ICD-10-PCS; principal; 2017-07-28 18:00)
PROC: 4A023N7 Measurement of Cardiac Sampling and Pressure, Left Heart, Percutaneous Approach (ICD-10-PCS; 2017-07-28 18:00)
PROC: 5A12012 Performance of Cardiac Output, Single, Manual (ICD-10-PCS; 2017-07-28 18:00)
PROC: 5A1955Z Respiratory Ventilation, Greater than 96 Consecutive Hours (ICD-10-PCS; 2017-07-28 18:00)
PROC: 02100Z9 Bypass Coronary Artery, One Artery from Left Internal Mammary, Open Approach (ICD-10-PCS; 2017-07-28 18:00)
PROC: 06BQ4ZZ Excision of Left Saphenous Vein, Percutaneous Endoscopic Approach (ICD-10-PCS; 2017-07-28 18:00)
PROC: 0BH17EZ Insertion of Endotracheal Airway into Trachea, Via Natural or Artificial Opening (ICD-10-PCS; 2017-07-28 18:00)
PROC: 0DB78ZX Excision of Stomach, Pylorus, Via Natural or Artificial Opening Endoscopic, Diagnostic (ICD-10-PCS; 2017-07-28 18:00)
PROC: B211YZZ Fluoroscopy of Multiple Coronary Arteries using Other Contrast (ICD-10-PCS; 2017-07-28 18:00)
PROC: B215YZZ Fluoroscopy of Left Heart using Other Contrast (ICD-10-PCS; 2017-07-28 18:00)
PROC: 4A033BC Measurement of Arterial Pressure, Coronary, Percutaneous Approach (ICD-10-PCS; 2017-07-28 18:00)
PROC: 5A1221Z Performance of Cardiac Output, Continuous (ICD-10-PCS; 2017-07-28 18:00)
PROC: 30233N1 Transfusion of Nonautologous Red Blood Cells into Peripheral Vein, Percutaneous Approach (ICD-10-PCS; 2017-07-28 18:00)
PROC: 30233R1 Transfusion of Nonautologous Platelets into Peripheral Vein, Percutaneous Approach (ICD-10-PCS; 2017-07-28 18:00)
PROC: 5A1D70Z Performance of Urinary Filtration, Intermittent, Less than 6 Hours Per Day (ICD-10-PCS; 2017-07-28 18:00)
PROC: 4A00X4Z Measurement of Central Nervous Electrical Activity, External Approach (ICD-10-PCS; 2017-07-28 18:00)
PROC: 4A00X4Z Measurement of Central Nervous Electrical Activity, External Approach (ICD-10-PCS; 2017-07-28 18:00)
PROC: 4A00X4Z Measurement of Central Nervous Electrical Activity, External Approach (ICD-10-PCS; 2017-07-28 18:00)
PROC: 4A133R1 Monitoring of Arterial Saturation, Peripheral, Percutaneous Approach (ICD-10-PCS; 2017-07-28 18:00)
DX: I21.A1 Myocardial infarction type 2 (principal); I46.9 Cardiac arrest, cause unspecified; J96.01 Acute respiratory failure with hypoxia; I63.9 Cerebral infarction, unspecified; R65.21 Severe sepsis with septic shock; J69.0 Pneumonitis due to inhalation of food and vomit; A41.9 Sepsis, unspecified organism; G92 Toxic encephalopathy; I50.23 Acute on chronic systolic (congestive) heart failure; N18.6 End stage renal disease; G93.1 Anoxic brain damage, not elsewhere classified; I16.1 Hypertensive emergency; J98.11 Atelectasis; I47.2 Ventricular tachycardia; I13.2 Hypertensive heart and chronic kidney disease with heart failure and with stage 5 chronic kidney disease, or end stage renal disease; E87.0 Hyperosmolality and hypernatremia; D68.9 Coagulation defect, unspecified; Z78.1 Physical restraint status; Z66 Do not resuscitate; Z99.2 Dependence on renal dialysis; E78.5 Hyperlipidemia, unspecified; D63.1 Anemia in chronic kidney disease; G40.909 Epilepsy, unspecified, not intractable, without status epilepticus; E66.01 Morbid (severe) obesity due to excess calories; Z68.37 Body mass index [BMI] 37.0-37.9, adult; D69.6 Thrombocytopenia, unspecified; D50.9 Iron deficiency anemia, unspecified; I25.5 Ischemic cardiomyopathy; I25.10 Atherosclerotic heart disease of native coronary artery without angina pectoris; K29.70 Gastritis, unspecified, without bleeding; K29.80 Duodenitis without bleeding; K20.9 Esophagitis, unspecified; Z91.19 Patient's noncompliance with other medical treatment and regimen; E83.42 Hypomagnesemia; K13.29 Other disturbances of oral epithelium, including tongue
CPT/HCPCS: 31500; 36415; 36430; 36600; 70450; 70551; 71010; 74000; 76937; 80048; 80053; 80061; 80185; 80202; 80306; 80307; 81001; 82150; 82270; 82550; 82553; 82728; 82803; 82962; 83036; 83540; 83605; 83690; 83735; 84100; 84484; 85014; 85018; 85025; 85049; 85362; 85378; 85384; 85610; 85670; 85730; 86022; 86644; 86704; 86709; 86803; 86850; 86900; 86901; 86920; 87040; 87045; 87070; 87075; 87081; 87086; 87340; 88305; 88312; 90935; 92526; 92610; 92950; 93005; 93306; 93312; 93325; 93458; 93571; 93880; 94002; 94003; 94640; 94664; 94668; 94770; 95819; 96365; 96366; 96375; 97110; 97116; 97162; 97164; 97530; 99291-25; J1940